=== PATIENT | female | born 1990 | race Caucasian/White ===

== ENCOUNTER 2019-03-22 12:29 | Outpatient (CLI) | payer OTHER, SELFPAY ==
--- NOTE | ~2019-03-22 | US_ITS ---
EXAMINATION: US pelvic complete w TV DATE: 03/22/2019 13:24 INDICATION: Pelvic and perineal pain TECHNIQUE: Multiple transabdominal and endovaginal sonographic images of the pelvis were obtained. COMPARISON: None. FINDINGS: The uterus measures 8.7 x 4.3 x 5.7 cm. The endometrial complex measures 9 mm in thickness. There ar e at least 5 anechoic nabothian cysts at the cervix the largest measuring up to 1.5 cm in maximal saman meter. The right ovary measures 3.1 x 1.6 x 3.1 cm. The left ovary measures 3.5 x 2.2 x 3.3 cm. Vascu lar flow is identified with normal arterial and venous waveforms at both ovaries on color Doppler. Mu ltiple bilateral subcentimeter ovarian follicles. There is no free fluid in the pelvis. IMPRESSION: 1. Normal pelvic ultrasound with small bilateral ovarian follicles and several nabothian cysts at the cervix. Reviewed, dictated and finalized at location A. ISION INSTRUMENT MAKER
== END 2019-03-22 12:30 | disposition home or self-care (01) ==
PROVIDERS: PCP Student in an Organized Health Care Education/Training Program; Visit Provider Student in an Organized Health Care Education/Training Program
DX: R10.2 Pelvic and perineal pain (principal)
CPT/HCPCS: 76830; 76856

== ENCOUNTER 2019-03-27 12:31 | Outpatient (CLI) | payer OTHER, SELFPAY ==
[2019-03-27 13:19] LABS: Cholesterol 128 mg/dL (0-200); HDL Direct 33 mg/dL (40-60); LDL Cholesterol Calculated 79 mg/dL (<130); Thyroid Stimulating Hormone 2.42 uIU/mL (0.36-3.74); Triglycerides 82 mg/dL (0-150)
[2019-03-27 13:29] LABS: Beta HCG Quantitative < 1.00 mIU/mL (0-6)
[2019-03-27 13:32] LABS: Glucose Fasting 136 mg/dL (70-99)
[2019-03-27 14:06] LABS: Glucose 1 Hour 211 mg/dL (<180)
[2019-03-27 16:01] LABS: Glucose 2 Hour 191 mg/dL (<155)
[2019-03-30 06:10] LABS: Insulin Level Total 45.2 uIU/mL (2.0-19.6)
[2019-03-30 12:54] LABS: FSH 5.4 mIU/mL (***); LH 6.5 mIU/mL (***); Prolactin 9.8 ng/mL (***)
[2019-03-31 15:17] LABS: Testosterone Free 7.5 pg/mL (0.1-6.4); Testosterone Total 37 ng/dL (2-45)
== END 2019-03-27 12:32 | disposition home or self-care (01) ==
LOC: CHSLAB 12:32
PROVIDERS: PCP Student in an Organized Health Care Education/Training Program; Visit Provider Student in an Organized Health Care Education/Training Program
DX: N92.6 Irregular menstruation, unspecified (principal)
CPT/HCPCS: 36415; 80061; 82951; 83001; 83002; 83498; 83525; 84146; 84402; 84403; 84443; 84702

== ENCOUNTER 2019-04-12 09:33 | Outpatient (CLI) | payer OTHER, SELFPAY ==
[2019-04-12 09:55] LABS: Pregnancy On Board Control Positive; Urine Pregnancy Test Negative
[2019-04-12 09:56] LABS: Specific Gravity Ur 1.025 (1.010-1.035)
[2019-04-12 10:17] LABS: Hemoglobin A1C 6.5 % (<5.7)
[2019-04-15 07:29] LABS: Prolactin 15.8 ng/mL (***)
== END 2019-04-12 09:34 | disposition home or self-care (01) ==
LOC: CHSLAB 09:37
PROVIDERS: PCP Student in an Organized Health Care Education/Training Program; Visit Provider Student in an Organized Health Care Education/Training Program
DX: N92.0 Excessive and frequent menstruation with regular cycle (principal); R87.810 Cervical high risk human papillomavirus (HPV) DNA test positive
CPT/HCPCS: 36415; 81025; 83036; 84146

== ENCOUNTER 2019-06-27 16:17 | Emergency (ER) | payer OTHER, SELFPAY ==
--- NOTE | 2019-06-27 16:58 | ED.URI ---
HPI - URI/Sore Throat General Chief Complaint: Upper Respiratory Infection Stated Complaint: trouble breathing,cough Source: patient Mode of arrival: ambulatory Limitations: no limitations History of Present Illness HPI Narrative: this is 29-year-old female presents with increased shortness of breath x3 days with a mild nonproductive cough no fevers no sick contacts no travel history, patient is currently afebrile has a history of asthma and has been well controlled with albuterol as needed. Currently there is no diarrhea constipation no nausea vomiting no abdominal pain no chest pain. MD elicited complaint: cough Onset (ago): day(s) Consistency: constant Severity: mild Description of mucous: clear Able to tolerate fluids by mouth: Yes Exacerbating factors: nothing Relieving factors: nothing Associated symptoms: cough Related Data Home Medications Medication Instructions Recorded Confirmed albuterol sulfate [ProAir HFA] 2 puff INHALATION QID PRN 01/09/19 01/09/19 Allergies Allergy/AdvReac Type Severity Reaction Status Date / Time Bleach (Sodium Hypochlorite) Allergy Unknown Difficulty Verified 04/16/19 09:37 Breathing morphine AdvReac Unknown PANIC Verified 04/16/19 09:37 ATTACK Opioids - Morphine Analogues AdvReac PANIC Verified 04/16/19 09:37 ATTACK Review of Systems Review of Systems: All systems reviewed & are unremarkable except as noted in HPI and below PMFSH Past Medical History Medical History Asthma Cervical high risk HPV (human papillomavirus) test positive CHASTITY II (cervical intraepithelial neoplasia 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 Morbid obesity with BMI of 40.0-44.9, adult Preoperative exam for gynecologic surgery Surgical History Surgical History H/O section H/O LEEP History of appendectomy Family History Family History Mother Diabetes mellitus Sibling Hypertension Grandparent Cerebrovascular accident Father Family history of throat cancer Social History Social History Smoking status: Never smoker Alcohol intake: never Exam Const: General: no acute distress and alert Orientation/consciousness: patient oriented x3 HENMT: Head: normal to inspection Eyes: Conjunctivae: conjunctivae normal Pupils: Equal, round and reactive pupils present Neck: Neck: normal visual inspection Chest: Chest palpation & inspection: normal inspection of the chest Resp: Effort & Inspection: normal respiratory effort Auscultation: wheezes Cardio: Rate: regular rate Rhythm: regular rhythm GI: GI Palp: Yes Soft to palpation : General: Yes no CVA tenderness Back/Spine/Pelvis: Back: no CVA tenderness Skin: General skin exam: normal color Rashes: no rashes Neuro: General: patient oriented x3 Extrem: General: normal to inspection Psych: Appearance: grossly normal and well kempt Mental Status: mental status grossly normal Thought content: Yes Normal thought content present Critical Care Time Critical Care Time Critical Care Time: No Discharge Plan Discharge Clinical Impression: URI (upper respiratory infection) Qualifiers: URI type: unspecified URI Qualified Code(s): J06.9 - Acute upper respiratory infection, unspecified Patient Disposition: Home, Self-Care Condition: Stable Instructions: Antibiotic Form, Upper Respiratory Infection (ED) Additional Instructions: Take medicine as prescribed and follow-up with primary care physician if symptoms persist or worsen. Prescriptions: New methylprednisolone [Medrol (Harsha)] 4 mg tablets,dose pack See Rx Instructions .ROUTE .COMPLEX Qty: 21 RF: 0 azithromycin [Zithromax Z-Harsha] 250 mg tablet See Rx Instructions .ROUTE .COMP
[2019-06-27 17:04] VITALS: BP 144/67; PULSE 102; RESP 18; TEMP 36.9; O2SAT 97
[2019-06-27] MEDS: IPRATROPIUM 0.5 MG/ALBUTEROL SULFATE 2.5 MG AMPUL.NEB 3 ML INHALATION (17:06)
[2019-06-27 17:08] VITALS: PULSE 82; RESP 16
[2019-06-27 17:12] VITALS: PULSE 100; RESP 16
[2019-06-27] MEDS: cefTRIAXone 1 GM VIAL IM (17:20)
[2019-06-27] MEDS: methylPREDNISolone ACETATE 40 MG/ML VIAL 80 MG IM (17:21)
[2019-06-27 17:43] VITALS: BP 114/70; RESP 18; O2SAT 98
== END 2019-06-27 17:43 | disposition home or self-care (01) ==
PROVIDERS: Emergency Provider Emergency Medicine; PCP Internal Medicine
DX: J06.9 Acute upper respiratory infection, unspecified (principal)
CPT/HCPCS: 94640; 96372; 99283; 99284; J0696; J1030

== ENCOUNTER 2019-09-08 11:27 | Emergency (ER) | payer OTHER, SELFPAY ==
--- NOTE | ~2019-09-08 | XR_ITS ---
XR chest 2V DATE: 09/08/2019 12:52 INDICATION: Chest pain TECHNIQUE: PA and lateral views COMPARISON: 09/23/2018 portable AP chest FINDINGS: Normal heart size. No hilar or mediastinal enlargement. No pulmonary infiltrate or consolid ation, pleural effusion or pulmonary vascular congestion or pneumothorax. IMPRESSION: No active cardiopulmonary disease Reviewed, dictated and finalized at location A.
--- NOTE | 2019-09-08 11:29 | ECG_ITS ---
Measurements Intervals [place] Rate: 75 P: 33 NE: 161 QRS: 42 QRSD: 88 T: 17 QT: 377 QTc: 423 Interpretive Statements SINUS RHYTHM WITH SINUS ARRHYTHMIA BASELINE ARTIFACT- I, II, III NORMAL ECG Electronically Signed On 09-08-2019 14:53:44 CDT by Tarun Persaud D.O.
[2019-09-08 11:37] VITALS: BP 123/69; PULSE 75; RESP 20; TEMP 36.9; O2SAT 98
--- NOTE | 2019-09-08 11:54 | ED.CHESTPAIN ---
HPI - Chest Pain General Chief Complaint: Chest Pain Stated Complaint: sharp pains in chest Time Seen by Provider: 09/08/19 11:45 Source: patient Mode of arrival: ambulatory Limitations: no limitations History of Present Illness HPI narrative: 29-year-old man comes in today complaining of sharp intermittent chest pains that last less than 1 minutes. They have been occurring for days. She states that she feels mild nausea but no shortness of breath, lightheadedness, vomiting, or diaphoresis. She states she has never had these symptoms before. She cannot associate them with any particular activity such as exertion, eating, or position. She states that she has been taking prednisone recently for an asthma exacerbation but finished her taper approximately 3 days ago. She states that she has had no episodes of shortness of breath or wheezing for which she has used her inhaler in the last 3 days. MD complaint: chest pain Pertinent past history: asthma Onset (ago): week(s) Timing of current episode: episodic Prior episodes: No Onset: during rest Pain location: substernal Pain radiation: none Severity: moderate Quality: sharp Relieving factors: nothing Exacerbating factors: nothing Associated symptoms: nausea Treatment prior to arrival: none Risk Factors Coronary artery disease risk factors: none Thoracic aortic dissection risk factors: none Related Data On Oral Contraceptives: No Home Medications Medication Instructions Recorded Confirmed albuterol sulfate [ProAir HFA] 2 puff INHALATION QID PRN 01/09/19 09/08/19 Allergies Allergy/AdvReac Type Severity Reaction Status Date / Time Bleach (Sodium Hypochlorite) Allergy Unknown Difficulty Verified 04/16/19 09:37 Breathing morphine AdvReac Unknown PANIC Verified 04/16/19 09:37 ATTACK Opioids - Morphine Analogues AdvReac PANIC Verified 04/16/19 09:37 ATTACK Review of Systems Constitutional: Constitutional: Denies chills and Denies fever(s) Eyes: Eyes: Denies change in vision and Denies photophobia ENT: Denies dysphagia, Denies nasal congestion and Denies sore throat Cardiovascular: Cardiovascular: Reports chest pain and Denies radiating jaw, neck or arm pain Respiratory: Respiratory: Denies cough, Denies dyspnea and Denies wheezing Gastrointestinal: Gastrointestinal: Reports as per HPI, Denies abdominal pain, Denies diarrhea, Reports nausea and Denies vomiting Genitourinary: Genitourinary: Denies nocturia and Denies dysuria Musculoskeletal: Musculoskeletal: Denies arthralgias, Denies joint swelling and Denies muscle cramps Integumentary/Breasts: Skin/Breast: Denies pruritus, Denies erythema and Denies rash Neurologic: Denies vertigo, Denies dizziness and Denies syncope Hematologic/Lymphatic: Hematologic/Lymphatic: Denies easy bleeding and Denies easy bruising Allergic/Immunologic: Allergic/Immunologic: Denies lip swelling and Denies wheezing PMFSH Past Medical History Medical History Asthma Cervical high risk HPV (human papillomavirus) test positive CHASTITY II (cervical intraepithelial neoplasia 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 Morbid obesity with BMI of 40.0-44.9, adult Preoperative exam for gynecologic surgery Surgical History Surgical History H/O section H/O LEEP History of appendectomy Family History Family History Mother Diabetes mellitus Sibling Hypertension Grandparent Cerebrovascular accident Father Family history of throat cancer Social History Social History Smoking status: Never smoker Alcohol intake: never Exam Const: General: alert Nutritional Appearance: obese Orientation/consciousness: patient oriented x3 Limitations: no limitations
[2019-09-08] MEDS: MAG HYDROX/ALUMINUM HYD/SIMETH 30 ML, PHENobarb/HYOSCY/ATROPINE/SCOP 32.4 MG, LIDOCAINE... PO (12:03)
[2019-09-08 12:27] LABS: Basophils Absolute Auto 0.03 K/mm3 (0.00-0.10); Basophils Percent Auto 0.4 % (0.0-1.0); Eosinophils Absolute Auto 0.11 K/mm3 (0.02-0.50); Eosinophils Percent Auto 1.4 % (1.0-6.0); Hematocrit 38.4 % (35.0-49.0); Hemoglobin 12.9 g/dL (12.0-15.0); Immature Granulocyte Absolute 0.04 K/mm3 (0.00-0.00); Immature Granulocyte Percent A 0.5 % (0.0-0.0); Lymphocytes Absolute Auto 1.62 K/mm3 (1.10-4.50); Lymphocytes Percent Auto 20.7 % (18.0-42.0); Mean Corpuscular HGB Conc 33.6 g/dL (32.0-36.0); Mean Corpuscular Hemoglobin 30.4 pg (27.0-31.0); Mean Corpuscular Volume 90.6 fL (78.0-102.0); Mean Platelet Volume 13.1 fl (9.2-11.8); Monocytes Percent Auto 8.9 % (2.0-11.0); Neutrophils Absolute Auto 5.3 K/mm3 (1.7-7.2); Neutrophils Percent Auto 68.1 % (50.0-70.0); Platelet Count Result 178 K/mm3 (150-420); Red Blood Count 4.24 M/mm3 (4.20-5.40); Red Cell Distribution Width 13.2 % (11.6-14.4); White Blood Count 7.8 K/mm3 (4.8-10.8)
[2019-09-08 12:39] LABS: Partial Thromboplastin Time 29.3 SEC (22.3-31.6); Prothrombin Time 10.3 Seconds (9.64-11.0)
[2019-09-08 12:40] LABS: BNP 12 pg/mL (0-100)
[2019-09-08 12:41] LABS: D Dimer 0.31 mg/L (0.19-0.50)
[2019-09-08 12:44] LABS: Alanine Aminotransferase 28 U/L (14-59); Albumin Level 3.6 g/dL (3.4-5.0); Alkaline Phosphatase 95 U/L (46-116); Anion Gap 10.7 mmol/L (7-16); Aspartate Amino Transferase 24 U/L (15-37); Bilirubin,Total 0.3 mg/dL (0.00-1.00); Blood Urea Nitrogen 7 mg/dL (7-18); Calcium 8.5 mg/dL (8.5-10.1); Carbon Dioxide 28 mmol/L (21-32); Chloride 105 mmol/L (98-108); Estimated CRCL calculation 94 ml/min; Estimated Glomerular Filt Rate > 60; Glucose 103 mg/dL (70-99); Lipase 83 U/L (73-393); Osmolality Calculated 288 mOsm/kg (285-295); Potassium 3.7 mmol/L (3.5-5.1); Sodium 140 mmol/L (136-145); Total Protein 7.6 g/dL (6.4-8.2)
[2019-09-08 12:46] LABS: Add Urine Microscopic? YES; Appearance Urine Clear (Clear); Bilirubin Urine Negative (Negative); Blood Urine 3+ (Negative); Color Urine Yellow (Yellow); Glucose Urine UA Negative (Negative); Ketones Urine Negative (Negative); Leukocyte Esterase Ur Negative LEU/UL (Negative); Nitrate Urine Negative (Negative); Protein Urine Trace (Negative); Specific Grav Ur >= 1.030 (1.010-1.020); Urobilinogen Urine 0.2 mg/dL (0.2-1.0)
[2019-09-08 12:46] LABS: Troponin I < 0.02 ng/mL (0.00-0.056)
[2019-09-08 12:48] LABS: Urine Pregnancy Test Negative
[2019-09-08 12:49] LABS: Pregnancy On Board Control Positive; Specific Gravity Ur > 1.030 (1.010-1.035)
[2019-09-08 12:52] LABS: Bacteria Urine 2+ /hpf; Squamous Epithelial Cell Urine Few /hpf (Few); WBC Urine None seen /hpf (0-3)
[2019-09-08 12:53] LABS: Mucus Urine Rare /lpf
[2019-09-08 13:16] VITALS: BP 123/71; PULSE 71; RESP 15; O2SAT 99
[2019-09-08] MEDS: PANTOPRAZOLE 40 MG TABLET PO (13:16)
== END 2019-09-08 13:16 | disposition home or self-care (01) ==
PROVIDERS: Emergency Provider Emergency Medicine; PCP Internal Medicine
DX: R07.9 Chest pain, unspecified (principal)
CPT/HCPCS: 36415; 71046; 80053; 81001; 81025; 83690; 83880; 84484; 85025; 85380; 85610; 85730; 93005; 99284; A9270

== ENCOUNTER 2019-11-28 14:01 | Emergency (ER) | payer OTHER, SELFPAY ==
--- NOTE | ~2019-11-28 | XR_ITS ---
EXAMINATION: XR chest 1V portable INDICATION: Shortness of breath TECHNIQUE: Portable AP chest at 1500 hours COMPARISON: 09/08/2019 FINDINGS: The lungs are free of acute opacities. There is no pleural effusion or pneumothorax. The ca rdiomediastinal silhouette is normal. IMPRESSION: 1. No acute cardiopulmonary abnormality. Reviewed, dictated and finalized at location A.
[2019-11-28 14:15] VITALS: BP 122/75; PULSE 93; RESP 18; TEMP 37.1; O2SAT 100
--- NOTE | 2019-11-28 14:26 | ED.SOB ---
HPI - SOB/Dyspnea General Chief Complaint: Upper Respiratory Infection Stated Complaint: headache chest pain cant breath asthmatic Time Seen by Provider: 11/28/19 14:26 Source: patient Mode of arrival: ambulatory Limitations: no limitations History of Present Illness HPI Narrative: 29-year-old woman with a history of asthma comes in today complaining of shortness for breath, feeling fatigued and ill, nausea, and sore throat. Patient states that her had similar symptoms for approximately a week. His symptoms have now resolved. She denies any fever. She denies vomiting, diarrhea, rash, chest pain or pressure, abdominal pain, and trauma. She states she is out of her albuterol MDI. she denies any known COVID-19 exposures. MD elicited complaint: shortness of breath, cough and asthma attack Pertinent past history: asthma Onset (ago): day(s) (2) Timing: constant and progressively worsening Severity: moderate Exacerbating factors: exertion Relieving factors: rest Known history of: asthma Associated symptoms: cough, wheezing ( Intermittently) and nausea/vomiting Related Data Home oxygen amount: none Home Medications Medication Instructions Recorded Confirmed albuterol sulfate [ProAir HFA] 2 puff INHALATION QID PRN 01/09/19 11/28/19 budesonide-formoterol [Symbicort] 2 puff INHALATION BID 11/28/19 11/28/19 montelukast 10 mg PO DAILY 11/28/19 11/28/19 Allergies Allergy/AdvReac Type Severity Reaction Status Date / Time Bleach (Sodium Hypochlorite) Allergy Unknown Difficulty Verified 04/16/19 09:37 Breathing morphine AdvReac Unknown PANIC Verified 04/16/19 09:37 ATTACK Opioids - Morphine Analogues AdvReac PANIC Verified 04/16/19 09:37 ATTACK Review of Systems Constitutional: Constitutional: Denies chills, Reports fatigue, Denies fever(s) and Reports weakness Eyes: Eyes: Denies change in vision and Denies photophobia ENT: Denies dysphagia, Denies nasal congestion and Reports sore throat Cardiovascular: Cardiovascular: Denies chest pain and Denies radiating jaw, neck or arm pain Respiratory: Respiratory: Reports cough, Reports dyspnea and Reports wheezing Gastrointestinal: Gastrointestinal: Denies abdominal pain, Denies diarrhea, Reports nausea and Denies vomiting Genitourinary: Genitourinary: Denies nocturia and Denies dysuria Musculoskeletal: Musculoskeletal: Denies arthralgias and Denies joint swelling Integumentary/Breasts: Skin/Breast: Denies pruritus, Denies erythema and Denies rash Neurologic: Denies vertigo, Denies dizziness, Denies syncope and Denies numbness Hematologic/Lymphatic: Hematologic/Lymphatic: Denies easy bleeding and Denies easy bruising Allergic/Immunologic: Allergic/Immunologic: Denies lip swelling and Denies tongue swelling PMFSH Past Medical History Medical History (Updated 11/28/19 @ 15:24 by Hardeep Robles MD) Asthma Cervical high risk HPV (human papillomavirus) test positive CHASTITY II (cervical intraepithelial neoplasia 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 Morbid obesity with BMI of 40.0-44.9, adult Preoperative exam for gynecologic surgery Surgical History Surgical History H/O section H/O LEEP History of appendectomy Family History Family History Mother Diabetes mellitus Sibling Hypertension Grandparent Cerebrovascular accident Father Family history of throat cancer Social History Social History Smoking status: Never smoker Alcohol intake: never Exam Const: General: alert Nutritional Appearance: obese Orientation/consciousness: patient oriented x3 Limitations: no limitations Other: mild acute distress HENMT: Head: normal to inspection Ears: external ears normal, TM's normal bilaterally and EAC's normal General nose exam
[2019-11-28 15:08] LABS: Influenza Control Valid (Valid)
[2019-11-28] MEDS: IPRATROPIUM 0.5 MG/ALBUTEROL SULFATE 2.5 MG AMPUL.NEB 3 ML INHALATION (15:24)
[2019-11-28 15:25] VITALS: PULSE 84; RESP 16
[2019-11-28 15:44] VITALS: PULSE 96; RESP 16
[2019-11-28 15:49] VITALS: BP 124/86; PULSE 93; RESP 16; O2SAT 99
[2019-11-29 14:11] LABS: SARS-CoV-2 RNA PCR Negative
== END 2019-11-28 15:47 | disposition home or self-care (01) ==
PROVIDERS: Emergency Provider Emergency Medicine; PCP Internal Medicine
DX: B34.9 Viral infection, unspecified (principal); J45.30 Mild persistent asthma, uncomplicated; Z20.828 Contact with and (suspected) exposure to other viral communicable diseases
CPT/HCPCS: 71045; 87635; 87804; 94640; 99282; 99283; C9803; U0003

== ENCOUNTER 2020-07-13 05:05 | Emergency (ER) | payer OTHER, SELFPAY ==
[2020-07-13 05:05] VITALS: BP 116/66; PULSE 70; RESP 20; TEMP 36.6; O2SAT 97
[2020-07-13 05:20] VITALS: PULSE 70; RESP 20; O2SAT 97
[2020-07-13] MEDS: methylPREDNISolone ACETATE 40 MG/ML VIAL 80 MG IM (05:20)
[2020-07-13] MEDS: IPRATROPIUM 0.5 MG/ALBUTEROL SULFATE 2.5 MG AMPUL.NEB 3 ML INHALATION (05:20)
--- NOTE | 2020-07-13 05:21 | ED.ASTHMA ---
HPI - Asthma General Chief Complaint: Asthma Stated Complaint: SHORTNESS OF BREATHE Source: patient Mode of arrival: ambulatory Limitations: no limitations History of Present Illness HPI Narrative: this is a year old female who presents with a history of asthma with some stating that her medication is not working as well as it used to, she has some wheezes with auscultation but otherwise able to sentences not short of breath no cough no congestion no fever chills no abdominal pain no chest tightness. Patient currently has her medication and has been using them but feels they are not as affective. complaint: wheezing Onset (ago): day(s) Severity: mild Context: none known Associated symptoms: none Asthma History: adult onset Treatments Prior to Arrival: inhaled bronchodilator and inhaled steroid Related Data Current Asthma Therapy: inhaled bronchodilator and inhaled steroid Home Medications Medication Instructions Recorded Confirmed albuterol sulfate [ProAir HFA] 2 puff INHALATION QID PRN 01/09/19 11/28/19 budesonide-formoterol [Symbicort] 2 puff INHALATION BID 11/28/19 11/28/19 montelukast 10 mg PO DAILY 11/28/19 11/28/19 Allergies Allergy/AdvReac Type Severity Reaction Status Date / Time Bleach (Sodium Hypochlorite) Allergy Unknown Difficulty Verified 04/16/19 09:37 Breathing morphine AdvReac Unknown PANIC Verified 04/16/19 09:37 ATTACK Opioids - Morphine Analogues AdvReac PANIC Verified 04/16/19 09:37 ATTACK Review of Systems Review of Systems: All systems reviewed & are unremarkable except as noted in HPI and below PMFSH Past Medical History Medical History (Updated 07/13/20 @ 05:25 by Shahid Ramirez MD) Asthma Cervical high risk HPV (human papillomavirus) test positive CHASTITY II (cervical intraepithelial neoplasia 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 Morbid obesity with BMI of 40.0-44.9, adult Preoperative exam for gynecologic surgery Surgical History Surgical History H/O section H/O LEEP History of appendectomy Family History Family History Mother Diabetes mellitus Sibling Hypertension Grandparent Cerebrovascular accident Father Family history of throat cancer Social History Social History Smoking status: Never smoker Alcohol intake: never Exam Const: General: no acute distress Orientation/consciousness: patient oriented x3 HENMT: Head: normal to inspection and contusion Eyes: Conjunctivae: conjunctivae normal Pupils: Equal, round and reactive pupils present EOM: EOMs intact bilaterally Neck: Neck: normal visual inspection, no lymphadenopathy and no meningeal signs Chest: Chest palpation & inspection: normal inspection of the chest Resp: Effort & Inspection: normal respiratory effort Auscultation: wheezes Cardio: Rate: regular rate Rhythm: regular rhythm GI: GI Palp: Yes Tenderness to palpation present (GI) : General: Yes no CVA tenderness Skin: General skin exam: normal color Lesions: no lesions Neuro: General: patient oriented x3, moves all extremities and no meningeal signs Extrem: General: normal to inspection and no pedal edema Psych: Appearance: grossly normal and well kempt Mental Status: mental status grossly normal Affect: normal affect Course Course Emergency Course: Reassessment of patient lung sounds have improved after DuoNebs and IM steroids. Critical Care Time Critical Care Time Critical Care Time: No Discharge Plan Discharge Clinical Impression: Asthma with acute exacerbation Qualifiers: Asthma severity: mild Asthma persistence: intermittent Qualified Code(s): J45.21 - Mild intermittent asthma with (acute) exacerbation Patient Disposition: Home, Self-Care Condition: Stable Instructions: Antib
[2020-07-13 05:30] VITALS: PULSE 78; RESP 20; O2SAT 97
[2020-07-13 05:45] VITALS: BP 120/66; PULSE 70; RESP 20; TEMP 36.6; O2SAT 98
== END 2020-07-13 05:46 | disposition home or self-care (01) ==
PROVIDERS: Emergency Provider Emergency Medicine; PCP Internal Medicine
DX: J45.21 Mild intermittent asthma with (acute) exacerbation (principal); E66.9 Obesity, unspecified
CPT/HCPCS: 94640; 96372; 99283; J1030

== ENCOUNTER 2021-02-17 19:54 | Emergency (ER) | payer OTHER, SELFPAY ==
--- NOTE | ~2021-02-17 | CT_ITS ---
EXAMINATION: CT brain wo con EXAM DATE: 02/17/2021 21:14 INDICATION: Frontal CARTAGENA today . Dizziness. TECHNIQUE: Spiral CT of the head was performed without contrast. Axial, coronal and sagittal images were reviewed. The dose-length product (DLP) for this examination was 605.33 mGy-cm. The exposure w as tailored according to patient size, and iterative reconstruction (ASIR) was used as additional dos e reduction technique. There is no prior study for comparison. FINDINGS: Low-lying cerebellar tonsils, probably meeting criteria for Chiari I malformation. MR cervi mariano spine without contrast should be obtained. There is no acute intraparenchymal hemorrhage. No bea dence of intraparenchymal brain mass lesion. No evidence of acute infarction. There is no mass effe ct or midline shift. The ventricles are normal in size. There are no extra-axial collections. Ther e are no acute calvarial fractures. Disconjugate gaze. Soft tissue is unremarkable. The visualized s inuses and mastoid air cells are well aerated. IMPRESSION: 1. No acute intracranial findings. 2. Probable Chiari I malformation. Consider follow-up nonemergent cervical spine MRI without contras t. Reviewed, dictated and finalized at location A. PICKER MACHINE OPERATOR IMPRESSION: 1. No acute intracranial findings. 2. Probable Chiari I malformation. Consider follow-up nonemergent cervical spi ne MRI without contrast.
--- NOTE | ~2021-02-17 | XR_ITS ---
EXAMINATION: XR chest 1V portable EXAM DATE: 02/17/2021 21:14 INDICATION: Dizziness. TECHNIQUE: Portable AP frontal chest x-ray was obtained. Comparison is made to prior examination from 11/28/2019. FINDINGS: The lungs are clear. There are no pleural effusions. The cardiomediastinal silhouette is within normal limits. There is no pneumothorax suspected. The bones and soft tissues are unremarkab le. IMPRESSION: No acute cardiopulmonary findings. Reviewed, dictated and finalized at location A. RETE TESTER
[2021-02-17 20:10] VITALS: BP 124/66; PULSE 106; RESP 18; TEMP 36.9; O2SAT 98
--- NOTE | 2021-02-17 20:22 | ED.DIZZY ---
HPI - Dizziness General Chief Complaint: Dizziness Stated Complaint: dizzy, throwing up Time Seen by Provider: 02/17/21 19:57 Source: patient and RN notes reviewed Mode of arrival: ambulatory Limitations: no limitations History of Present Illness MD elicited complaint: dizziness and lightheadedness Pertinent past history: BPPV Onset (ago): day(s) (1) Timing: sudden onset Severity: moderate Description: lightheadedness History of similar symptoms: Yes Exacerbating factors: nothing Relieving factors: nothing Associated symptoms: nausea and malaise Related Data Home Medications Medication Instructions Recorded Confirmed albuterol sulfate [ProAir HFA] 2 puff INHALATION QID PRN 01/09/19 02/17/21 Allergies Allergy/AdvReac Type Severity Reaction Status Date / Time Bleach (Sodium Hypochlorite) Allergy Unknown Difficulty Verified 02/17/21 20:18 Breathing morphine AdvReac Unknown PANIC Verified 02/17/21 20:18 ATTACK Opioids - Morphine Analogues AdvReac PANIC Verified 02/17/21 20:18 ATTACK Review of Systems Review of Systems: All systems reviewed & are unremarkable except as noted in HPI and below PMFSH Past Medical History Medical History Asthma Cervical high risk HPV (human papillomavirus) test positive CHASTITY II (cervical intraepithelial neoplasia 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 Morbid obesity with BMI of 40.0-44.9, adult Preoperative exam for gynecologic surgery Surgical History Surgical History H/O section H/O LEEP History of appendectomy Family History Family History Mother Diabetes mellitus Sibling Hypertension Grandparent Cerebrovascular accident Father Family history of throat cancer Social History Social History Smoking status: Never smoker Alcohol intake: never Exam Const: General: no acute distress and alert Nutritional Appearance: obese Orientation/consciousness: patient oriented x3 Limitations: no limitations HENMT: Head: normal to inspection Ears: TM's normal bilaterally General nose exam: Normal external nose present and Normal nares present Mouth: Yes lip normal and Yes moist mucous membranes Teeth and gingiva: dentition normal Eyes: Conjunctivae: conjunctivae normal Pupils: Equal, round and reactive pupils present EOM: EOMs intact bilaterally Neck: Neck: normal visual inspection Chest: Chest palpation & inspection: normal inspection of the chest Resp: Effort & Inspection: normal respiratory effort Auscultation: clear to auscultation bilaterally Cardio: Rate: tachycardic Rhythm: regular rhythm GI: Auscultation: normal bowel sounds : General: Yes bladder normal to palpation and Yes no CVA tenderness Back/Spine/Pelvis: Back: no CVA tenderness Skin: General skin exam: normal color Rashes: no rashes Neuro: General: patient oriented x3, moves all extremities, no meningeal signs, no focal motor deficits and CN's II-XI intact bilaterally Extrem: General: normal to inspection and no pedal edema Psych: Appearance: grossly normal Mental Status: mental status grossly normal Affect: normal affect Thought content: Yes Normal thought content present Course Course Emergency Course: Pt was less dizzy in the ED with no acute GI loss. Reevaluation(s) Reevaluation #1: VSS. pt was ambulatory in the ED. Date: 02/17/21 Time: 20:56 Vital Signs Vital signs: Vital Signs Temperature 36.9 C 02/17/21 20:10 Pulse Rate 106 H 02/17/21 20:10 Respiratory Rate 18 02/17/21 20:10 Blood Pressure 124/66 02/17/21 20:10 Pulse Oximetry 98 02/17/21 20:10 Temperature 36.7 C 02/17/21 23:00 Pulse Rate 103 H 02/17/21 23:00 Respiratory Rate 20 02/17/21 23:00 Blood Pressure 108
--- NOTE | 2021-02-17 20:33 | ECG_ITS ---
Measurements Intervals [place] Rate: 103 P: 42 NC: 172 QRS: 43 QRSD: 90 T: 29 QT: 327 QTc: 428 Interpretive Statements SINUS TACHYCARDIA BORDERLINE ECG Electronically Signed On 02-18-2021 6:29:36 INSPECTOR FILTERS by Tarun Persaud D.O.
[2021-02-17 20:55] LABS: Basophils Absolute Auto 0.01 K/mm3 (0.00-0.10); Basophils Percent Auto 0.2 % (0.0-1.0); Eosinophils Absolute Auto 0.02 K/mm3 (0.02-0.50); Eosinophils Percent Auto 0.3 % (1.0-6.0); Hemoglobin 12.9 g/dL (12.0-15.0); Immature Granulocyte Absolute 0.02 K/mm3 (0.00-0.00); Immature Granulocyte Percent A 0.3 % (0.0-0.0); Lymphocytes Absolute Auto 0.24 K/mm3 (1.10-4.50); Lymphocytes Percent Auto 3.9 % (18.0-42.0); Mean Corpuscular HGB Conc 32.3 g/dL (32.0-36.0); Mean Corpuscular Hemoglobin 27.7 pg (27.0-31.0); Mean Corpuscular Volume 85.8 fL (78.0-102.0); Mean Platelet Volume 12.8 fl (9.2-11.8); Monocytes Percent Auto 11.5 % (2.0-11.0); Neutrophils Absolute Auto 5.1 K/mm3 (1.7-7.2); Neutrophils Percent Auto 83.8 % (50.0-70.0); Platelet Count Result 183 K/mm3 (150-420); Red Blood Count 4.66 M/mm3 (4.20-5.40); Red Cell Distribution Width 13.8 % (11.6-14.4); White Blood Count 6.1 K/mm3 (4.8-10.8)
[2021-02-17 21:14] LABS: Alanine Aminotransferase 41 U/L (14-59); Albumin Level 3.7 g/dL (3.4-5.0); Alkaline Phosphatase 115 U/L (46-116); Anion Gap 12 mmol/L (8-16); Aspartate Amino Transferase 19 U/L (15-37); Bilirubin,Total 0.2 mg/dL (0.00-1.00); Blood Urea Nitrogen 8 mg/dL (7-18); Calcium 8.5 mg/dL (8.5-10.1); Carbon Dioxide 26 mmol/L (21-32); Chloride 100 mmol/L (98-108); Estimated CRCL calculation 94 ml/min; Estimated Glomerular Filt Rate > 60; Glucose 144 mg/dL (70-99); Osmolality Calculated 287 mOsm/kg (285-295); Sodium 138 mmol/L (136-145); Total Protein 8.3 g/dL (6.4-8.2); Troponin I 4.6 ng/L (0.00-60.4)
[2021-02-17 21:21] LABS: SARS-CoV-2 Ag Positive (Negative)
[2021-02-17] MEDS: KETOROLAC (*BKC) 60 MG/2 ML VIAL IM (21:22)
[2021-02-17] MEDS: PANTOPRAZOLE SODIUM IV 40 MG VIAL IV PUSH (21:48)
[2021-02-17] MEDS: SODIUM CHLORIDE 0.9% IV 1,000 ML 999 ML IV CONT (21:48)
[2021-02-17 21:49] LABS: Influenza Control Valid (Valid); SPREG INTERNAL CONTROL Positive; Serum Qual hCG Negative
[2021-02-17] MEDS: ONDANSETRON INJ 4 MG/2 ML VIAL IV PUSH (21:50)
[2021-02-17 23:00] VITALS: BP 108/62; PULSE 103; RESP 20; TEMP 36.7; O2SAT 97
== END 2021-02-17 23:02 | disposition home or self-care (01) ==
PROVIDERS: Emergency Provider Emergency Medicine; PCP Internal Medicine
DX: U07.1 COVID-19 (principal); B34.9 Viral infection, unspecified
CPT/HCPCS: 36415; 70450; 71045; 80053; 84484; 84703; 85025; 87426; 87804; 93005; 96361; 96372; 96374; 96375; 99283; 99284; C9113; C9803; J1885; J2405; J7030

== ENCOUNTER 2021-07-31 21:14 | Emergency (ER) | payer OTHER, SELFPAY ==
[2021-07-31 21:30] VITALS: BP 132/78; PULSE 98; RESP 20; TEMP 36.6; O2SAT 99
--- NOTE | 2021-07-31 21:43 | ED.URI ---
HPI - URI/Sore Throat General Chief Complaint: Upper Respiratory Infection Stated Complaint: sore throat, sob Source: patient Mode of arrival: ambulatory Limitations: no limitations History of Present Illness HPI Narrative: this is a 31-year-old female with history of asthma currently on inhalers and has been a sore throat with sinus congestion and pressure with low-grade fevers with currently of no shortness of breath no audible wheezing no nausea vomiting no chest pain. MD elicited complaint: sore throat, nasal congestion and sinus pain Pertinent past history: asthma Onset (ago): day(s) Consistency: constant Severity: mild Related Data Home Medications Medication Instructions Recorded Confirmed albuterol sulfate 90 mcg/actuation 2 puff inhalation QID PRN 01/09/19 07/31/21 aerosol inhaler (ProAir HFA) Shortness Of Breath Allergies Allergy/AdvReac Type Severity Reaction Status Date / Time Bleach (Sodium Hypochlorite) Allergy Unknown Difficulty Verified 02/17/21 20:18 Breathing morphine AdvReac Unknown PANIC Verified 02/17/21 20:18 ATTACK Opioids - Morphine Analogues AdvReac PANIC Verified 02/17/21 20:18 ATTACK Review of Systems Review of Systems: All systems reviewed & are unremarkable except as noted in HPI and below PMFSH Past Medical History Medical History (Updated 07/31/21 @ 21:46 by Shahid Ramirez MD) Asthma Cervical high risk HPV (human papillomavirus) test positive CHASTITY II (cervical intraepithelial neoplasia 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 Morbid obesity with BMI of 40.0-44.9, adult Preoperative exam for gynecologic surgery Surgical History Surgical History H/O section H/O LEEP History of appendectomy Family History Family History Mother Diabetes mellitus Sibling Hypertension Grandparent Cerebrovascular accident Father Family history of throat cancer Social History Social History Smoking status: Never smoker Alcohol intake: never Exam Const: General: healthy appearing HENMT: Ears: external ears normal Mouth: Yes Normal oral and palatal mucosa present Other: Sinus congestion pressure frontal sinus with palpation Eyes: Conjunctivae: conjunctivae normal Pupils: Equal, round and reactive pupils present Neck: Neck: normal visual inspection, no lymphadenopathy and no meningeal signs Chest: Chest palpation & inspection: normal inspection of the chest Resp: Effort & Inspection: normal respiratory effort Auscultation: clear to auscultation bilaterally Cardio: Rate: regular rate Rhythm: regular rhythm GI: GI Palp: Yes Soft to palpation Auscultation: normal bowel sounds Back/Spine/Pelvis: Back: no CVA tenderness Skin: General skin exam: normal color Rashes: no rashes Wounds: no wounds Neuro: General: patient oriented x3, moves all extremities, no meningeal signs and no focal motor deficits Psych: Mental Status: mental status grossly normal Affect: normal affect Course Course Emergency Course: patient received IM Depo-Medrol and a g of IM ceftriaxone and strep was negative. Vital Signs Vital signs: Vital Signs Temperature 36.6 C 07/31/21 21:30 Pulse Rate 98 07/31/21 21:30 Respiratory Rate 20 07/31/21 21:30 Blood Pressure 132/78 07/31/21 21:30 Pulse Oximetry 99 07/31/21 21:30 Oxygen Delivery Room Air 07/31/21 21:30 Temperature 36.6 C 07/31/21 21:30 Pulse Rate 98 07/31/21 21:30 Respiratory Rate 20 07/31/21 21:30 Blood Pressure 132/78 07/31/21 21:30 Pulse Oximetry 99 07/31/21 21:30 Oxygen Delivery Room Air 07/31/21 21:30 Critical Care Time Critical Care Time Critical Care Time: No Discharge Plan Discharge Clinical Impression: Sinusitis Qualifiers: Sinusitis loc
[2021-07-31] MEDS: cefTRIAXone 1 GM, LIDOCAINE HCL 1% LOCAL INJ 2.1 ML IM (21:58)
[2021-07-31] MEDS: methylPREDNISolone ACETATE 40 MG/ML VIAL 80 MG IM (21:59)
[2021-07-31 22:18] VITALS: BP 133/74; PULSE 88; RESP 20; O2SAT 100
== END 2021-07-31 22:25 | disposition home or self-care (01) ==
PROVIDERS: Emergency Provider Emergency Medicine; PCP Internal Medicine
DX: J01.10 Acute frontal sinusitis, unspecified (principal)
CPT/HCPCS: 87880; 96372; 99284; J0696; J1030

== ENCOUNTER 2021-12-05 12:36 | Emergency (ER) | payer OTHER, SELFPAY ==
[2021-12-05 12:40] VITALS: BP 133/75; PULSE 92; RESP 20; TEMP 36.2; O2SAT 99
--- NOTE | 2021-12-05 13:05 | ED.GENADULT ---
HPI - General Adult General Chief complaint: Upper Respiratory Infection Stated complaint: labored breathing Time Seen by Provider: 12/05/21 12:56 Source: patient Mode of arrival: ambulatory Limitations: no limitations History of Present Illness HPI narrative: PATIENT IS A 31-YEAR-OLD OBESE WHITE FEMALE 3 PARA 1 AB1 15 WEEKS INTRAUTERINE BY ULTRASOUND DONE AT 13 AND HALF WEEKS. EDC: 05/30/2021. LAST MENSTRUAL PERIOD 08/23/2021. PATIENT IS AN ASTHMATIC AND SHE RAN OUT OF HER INHALER ALBUTEROL LAST NIGHT. COMPLAINS OF WHEEZING AND COUGHING FOR THE PAST 2 WEEKS. NONPRODUCTIVE COUGH NO CHEST OR ABDOMINAL PAIN OR BACK PAIN NO FEVER. SHE IS EATING DRINKING STOOLING AND VOIDING FINE WITHOUT RASH ITCHING OR OTHER PROBLEMS. Related Data Home Medications Medication Instructions Recorded Confirmed prenat.vits,mariano,[id number] 1 tablet PO DAILY 11/18/21 12/05/21 Allergies Allergy/AdvReac Type Severity Reaction Status Date / Time Bleach (Sodium Hypochlorite) Allergy Unknown Difficulty Verified 12/05/21 12:47 Breathing morphine AdvReac Unknown PANIC Verified 12/05/21 12:47 ATTACK Opioids - Morphine Analogues AdvReac PANIC Verified 12/05/21 12:47 ATTACK Review of Systems Review of Systems: All systems reviewed & are unremarkable except as noted in HPI and below Constitutional: Constitutional: Reports no additional constitutional complaints, Denies anorexia, Denies fatigue and Denies fever(s) Eyes: Eyes: Reports no additional eye complaints ENT: Reports system reviewed and no additional complaints, except as documented, Reports nasal congestion, Denies sinus pain and Denies sore throat Cardiovascular: Cardiovascular: Reports no additional cardiovascular complaints Respiratory: Respiratory: Reports no additional respiratory complaints, Denies chest congestion, Reports cough, Denies hemoptysis, Denies excessive phlegm production, Denies pain on inspiration, Denies pain with cough, Denies dyspnea, Denies dyspnea on exertion, Denies stridor and Reports wheezing Gastrointestinal: Gastrointestinal: Reports no additional gastrointestinal complaints and Reports nausea Genitourinary: Genitourinary: Reports no additional female genitourinary complaints Musculoskeletal: Musculoskeletal: Reports no additional musculoskeletal complaints Neurologic: Reports system reviewed and no additional complaints, except as documented PMFSH Past Medical History Medical History Asthma Cervical high risk HPV (human papillomavirus) test positive CHASTITY II (cervical intraepithelial neoplasia 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 Morbid obesity with BMI of 40.0-44.9, adult Preoperative exam for gynecologic surgery Surgical History Surgical History H/O section H/O LEEP History of appendectomy Family History Family History Mother Diabetes mellitus Sibling Hypertension Grandparent Cerebrovascular accident Father Family history of throat cancer Social History Social History Smoking status: Never smoker Alcohol intake: never Exam Narrative: MORBIDLY OBESE WHITE FEMALE APPEARS IN NO APPARENT DISTRESS. VITAL SIGNS ARE NORMAL. HEART TONES WERE HEARD TO BE 128 PER MY EXAM. HEAD IS ATRAUMATIC. EYES CONJUNCTIVA PINK SCLERA NONICTERIC OROPHARYNX IS CLEAR WITH MOIST MUCOUS MEMBRANES. LUNGS SHOW FAIR AIR EXCHANGE WITH SLIGHT WHEEZING. HEART IS REGULAR RATE AND RHYTHM WITHOUT MURMURS GALLOPS RUBS ABDOMEN MORBIDLY OBESE SOFT NONTENDER NO HEPATOSPLENOMEGALY OR MASSES EXTREMITIES NO CYANOSIS CLUBBING OR EDEMA NEUROLOGIC IS SHE IS ALERT AND ORIENTED MOTOR SENSORY GROSSLY INTACT. SKIN IS CLEAR AND DRY Const: General: cooperative Orien
[2021-12-05] MEDS: ALBUTEROL SULFATE NEB 2.5 MG/3 ML INH INHALATION (13:18)
[2021-12-05 13:19] VITALS: PULSE 90; RESP 12; O2SAT 97
[2021-12-05 13:24] VITALS: PULSE 88; RESP 16
[2021-12-05 13:49] VITALS: BP 116/67; PULSE 98; RESP 18; O2SAT 100
== END 2021-12-05 13:50 | disposition home or self-care (01) ==
PROVIDERS: Emergency Provider Emergency Medicine; PCP Internal Medicine
DX: J45.901 Unspecified asthma with (acute) exacerbation (principal); Z33.1 Pregnant state, incidental
CPT/HCPCS: 94640; 99283

== ENCOUNTER 2021-12-13 13:10 | Outpatient (CLI) | payer OTHER, SELFPAY ==
[2021-12-13 13:31] LABS: Basophils Absolute Auto 0.02 K/mm3 (0.00-0.10); Basophils Percent Auto 0.2 % (0.0-1.0); Eosinophils Absolute Auto 0.19 K/mm3 (0.02-0.50); Hematocrit 37.7 % (35.0-49.0); Hemoglobin 12.8 g/dL (12.0-15.0); Immature Granulocyte Absolute 0.03 K/mm3 (0.00-0.00); Immature Granulocyte Percent A 0.3 % (0.0-0.0); Lymphocytes Percent Auto 16.1 % (18.0-42.0); Mean Corpuscular Hemoglobin 29.4 pg (27.0-31.0); Mean Corpuscular Volume 86.5 fL (78.0-102.0); Mean Platelet Volume 12.9 fl (9.2-11.8); Monocytes Absolute Auto 0.69 K/mm3 (0.10-0.90); Monocytes Percent Auto 7.4 % (2.0-11.0); Neutrophils Absolute Auto 6.9 K/mm3 (1.7-7.2); Platelet Count Result 175 K/mm3 (150-420); Red Blood Count 4.36 M/mm3 (4.20-5.40); Red Cell Distribution Width 14.6 % (11.6-14.4); White Blood Count 9.3 K/mm3 (4.8-10.8)
[2021-12-13 14:14] LABS: HIV 1 P24 AG Negative (Negative); HIV 1/2 AB Negative (Negative); Thyroid Stimulating Hormone 0.68 uIU/mL (0.36-3.74)
[2021-12-16 02:16] LABS: Hepatitis B Surface Antigen Nonreactive (Nonreactive); Hepatitis C Signal to Cutoff 0.02 ratio (<1.00); Hepatitis C Virus Antibody Nonreactive (Nonreactive)
[2021-12-16 06:38] LABS: Rubella IgG Antibody <0.90 Index
[2021-12-16 08:29] LABS: Varicella IgG Antibody >4000.00 Index (>=165.00)
[2021-12-16 16:08] LABS: RPR Screen Non-Reactive (Non-Reactive)
[2021-12-17 00:18] LABS: Hematocrit 39.6 % (35.0-45.0); MCH 29.1 pg (27.0-33.0); MCV 88.8 fL (80.0-100.0); RDW 15.4 % (11.0-15.0); Red Blood Cell Count 4.46 Mill/uL (3.80-5.10)
[2021-12-18 22:25] LABS: Vitamin D 25 Hydroxy 20 ng/mL (30-100)
[2021-12-23 15:53] LABS: CF Result NEGATIVE (NEGATIVE); Ethnicity NG
== END 2021-12-13 13:11 | disposition home or self-care (01) ==
LOC: CHSLAB 13:12
PROVIDERS: PCP Internal Medicine; Visit Provider Student in an Organized Health Care Education/Training Program
DX: Z34.90 Encounter for supervision of normal pregnancy, unspecified, unspecified trimester (principal)
CPT/HCPCS: 36415; 81220; 81243; 82306; 83021; 84443; 85025; 86592; 86703; 86762; 86787; 86850; 86900; 86901; 87086; 87088

== ENCOUNTER 2022-01-09 18:43 | Emergency (ER) | payer OTHER, SELFPAY ==
--- NOTE | 2022-01-09 19:05 | ED.URI ---
HPI - URI/Sore Throat General Chief Complaint: Upper Respiratory Infection Stated Complaint: diarrhea,using inhaler 6-7 times a night,coughing Time Seen by Provider: 01/09/22 19:05 Source: patient and RN notes reviewed Mode of arrival: ambulatory Limitations: no limitations History of Present Illness HPI Narrative: patient is 19 weeks and has been having some nausea vomiting she is not sure if it is from her or from an illness. Both her and her daughter are sick with fever chills nausea body aches. MD elicited complaint: cough, sore throat and rhinorrhea Onset (ago): day(s) (3) Consistency: constant Severity: moderate Able to tolerate fluids by mouth: Yes Exacerbating factors: nothing Relieving factors: nothing Context: sick contacts and other(s) with similar symptoms Associated symptoms: myalgias, nausea and vomiting Treatments prior to arrival: other ( Albuterol inhaler) Related Data Home Medications Medication Instructions Recorded Confirmed prenat.vits,mariano,[id number] 1 tablet PO DAILY 11/18/21 01/09/22 Allergies Allergy/AdvReac Type Severity Reaction Status Date / Time Bleach (Sodium Hypochlorite) Allergy Unknown Difficulty Verified 12/21/21 15:42 Breathing morphine AdvReac Unknown PANIC Verified 12/21/21 15:42 ATTACK Opioids - Morphine Analogues AdvReac PANIC Verified 12/21/21 15:42 ATTACK Review of Systems Review of Systems: All systems reviewed & are unremarkable except as noted in HPI and below PMFSH Past Medical History Medical History (Updated 01/09/22 @ 20:15 by Ac Kingston MD) Asthma Body mass index [BMI] 45.0-49.9, adult (11/29/18) Cervical high risk HPV (human papillomavirus) test positive CHASTITY II (cervical intraepithelial neoplasia 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 Morbid obesity with BMI of 40.0-44.9, adult Preoperative exam for gynecologic surgery Surgical History Surgical History H/O section H/O LEEP History of appendectomy Family History Family History Mother Diabetes mellitus Sibling Hypertension Grandparent Cerebrovascular accident Father Family history of throat cancer Social History Social History Smoking status: Never smoker Alcohol intake: never Exam Const: General: healthy appearing, no acute distress and alert Nutritional Appearance: well nourished and obese morbidly obese Orientation/consciousness: patient oriented x3 HENMT: Head: normal to inspection Ears: external ears normal Eyes: Conjunctivae: conjunctivae normal Pupils: Equal, round and reactive pupils present EOM: EOMs intact bilaterally Neck: Neck: normal visual inspection Resp: Effort & Inspection: normal respiratory effort Auscultation: clear to auscultation bilaterally Cardio: Rate: regular rate Rhythm: regular rhythm GI: GI Palp: Yes Soft to palpation and No Tenderness to palpation present (GI) Auscultation: normal bowel sounds Back/Spine/Pelvis: Cervical Spine: cervical ROM normal Thoracic/Lumbar Spine: thoraco-lumbar ROM normal Skin: General skin exam: normal color Rashes: no rashes Neuro: General: patient oriented x3, moves all extremities, no focal motor deficits and CN's II-XI intact bilaterally Speech: normal speech Gait exam (Neuro): Normal gait present Extrem: General: normal to inspection and no clubbing, cyanosis or edema Psych: Mental Status: mental status grossly normal Affect: normal affect Attitude: cooperative Course Course Emergency Course: patient is currently and has been exposed to a daughter with positive influenza. She has tested negative and therefore put her on prophylaxis of Tamiflu for total of 10 days. Vital Signs Vital signs: Vital Signs Temperature 36.4 C 01/09/22 19:18 Pu
[2022-01-09 19:18] VITALS: BP 121/65; PULSE 100; RESP 20; TEMP 36.4; O2SAT 97
[2022-01-09 20:02] LABS: Influenza A QL RT-PCR Negative (Negative); Influenza B QL RT-PCR Negative (Negative); SARS-CoV-2 RNA PCR Negative (Negative)
--- NOTE | 2022-01-09 20:10 | PC.NURSE ---
8weeks unable to find heart tones, too early
[2022-01-09] MEDS: OSELTAMIVIR PHOSPHATE 75 MG CAPSULE PO (20:15)
[2022-01-09 20:20] VITALS: BP 128/80; PULSE 72; RESP 16; TEMP 36.8; O2SAT 100
--- NOTE | 2022-01-09 20:22 | PC.NURSE ---
HIV Refusal collected
== END 2022-01-09 20:25 | disposition home or self-care (01) ==
PROVIDERS: Emergency Provider Emergency Medicine; PCP Internal Medicine
DX: Z20.828 Contact with and (suspected) exposure to other viral communicable diseases (principal)
CPT/HCPCS: 87502; 99283; A9270; U0003; U0005

== ENCOUNTER 2022-01-15 02:10 | Emergency (ER) | payer OTHER, SELFPAY ==
[2022-01-15 02:10] VITALS: BP 136/80; PULSE 100; RESP 20; TEMP 36.4; O2SAT 98
[2022-01-15] MEDS: methylPREDNISolone SOD SUCC 125 MG VIAL IM (02:23)
[2022-01-15 02:25] VITALS: PULSE 100; RESP 18; O2SAT 98
--- NOTE | 2022-01-15 02:25 | PC.NURSE ---
FHT 136
[2022-01-15] MEDS: IPRATROPIUM 0.5 MG/ALBUTEROL SULFATE 2.5 MG AMPUL.NEB 3 ML INHALATION (02:30)
[2022-01-15 02:33] VITALS: PULSE 98; RESP 18; O2SAT 98
[2022-01-15 02:45] LABS: Strep Group A RT-PCR NOT DETECTED (Negative)
[2022-01-15 02:57] LABS: Influenza A QL RT-PCR Negative (Negative); Influenza B QL RT-PCR Negative (Negative); SARS-CoV-2 RNA PCR Negative (Negative)
--- NOTE | 2022-01-15 03:32 | ED.URI ---
HPI - URI/Sore Throat General Chief Complaint: Upper Respiratory Infection Stated Complaint: shortness of breath Time Seen by Provider: 01/15/22 02:14 Source: patient and RN notes reviewed Mode of arrival: ambulatory Limitations: no limitations History of Present Illness MD elicited complaint: cough and other (sob, wheezing) Onset (ago): hour(s) (6) Consistency: constant Severity: mild Pain scale (0-10): 0 Able to tolerate fluids by mouth: Yes Exacerbating factors: nothing Relieving factors: nothing Associated symptoms: nasal congestion and shortness of breath Related Data Home Medications Medication Instructions Recorded Confirmed prenat.vits,mariano,[id number] 1 tablet PO DAILY 11/18/21 01/15/22 Allergies Allergy/AdvReac Type Severity Reaction Status Date / Time Bleach (Sodium Hypochlorite) Allergy Unknown Difficulty Verified 12/21/21 15:42 Breathing morphine AdvReac Unknown PANIC Verified 12/21/21 15:42 ATTACK Opioids - Morphine Analogues AdvReac PANIC Verified 12/21/21 15:42 ATTACK Review of Systems Review of Systems: All systems reviewed & are unremarkable except as noted in HPI and below Constitutional: Constitutional: Reports no additional constitutional complaints Eyes: Eyes: Reports no additional eye complaints ENT: Reports system reviewed and no additional complaints, except as documented Cardiovascular: Cardiovascular: Reports no additional cardiovascular complaints Respiratory: Respiratory: Reports no additional respiratory complaints Gastrointestinal: Gastrointestinal: Reports no additional gastrointestinal complaints Genitourinary: Genitourinary: Reports no additional female genitourinary complaints Musculoskeletal: Musculoskeletal: Reports no additional musculoskeletal complaints Integumentary/Breasts: Skin/Breast: Reports system reviewed and no additional complaints, except as docu Neurologic: Reports system reviewed and no additional complaints, except as documented Psychiatric: Psychiatric: Reports no additional psychiatric complaints Endocrine: Endocrine: Reports no additional endocrine complaints Hematologic/Lymphatic: Hematologic/Lymphatic: Reports no additional hematologic/lymphatic complaints Allergic/Immunologic: Allergic/Immunologic: Reports no additional allergic/immunologic complaints PMFSH Past Medical History Medical History Asthma Body mass index [BMI] 45.0-49.9, adult (11/29/18) Cervical high risk HPV (human papillomavirus) test positive CHASTITY II (cervical intraepithelial neoplasia 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 Morbid obesity with BMI of 40.0-44.9, adult Preoperative exam for gynecologic surgery Surgical History Surgical History H/O section H/O LEEP History of appendectomy Family History Family History Mother Diabetes mellitus Sibling Hypertension Grandparent Cerebrovascular accident Father Family history of throat cancer Social History Social History Smoking status: Never smoker Alcohol intake: never Exam Const: General: healthy appearing, no acute distress and well nourished Nutritional Appearance: well nourished Orientation/consciousness: patient oriented x3 Limitations: no limitations HENMT: Head: normal to inspection Ears: external ears normal, TM's normal bilaterally and EAC's normal Face/Nose/Sinus: Normal external nose present, Normal nares present, normal facial exam and sinuses nontender Face and sinus: normal facial exam and sinuses nontender Mouth: Yes Normal oral and palatal mucosa present and Yes moist mucous membranes Teeth and gingiva: dentition normal Throat: posterior oropharynx normal Eyes: Conjunctivae: conjunctivae normal Pupils:
[2022-01-15 03:34] VITALS: BP 130/80; PULSE 80; RESP 18; TEMP 37.2; O2SAT 100
== END 2022-01-15 03:38 | disposition home or self-care (01) ==
PROVIDERS: Emergency Provider Emergency Medicine; PCP Internal Medicine
DX: J45.909 Unspecified asthma, uncomplicated (principal); Z20.822 Contact with and (suspected) exposure to COVID-19
CPT/HCPCS: 87636; 87651; 94640; 96372; 99283; J2930

== ENCOUNTER 2022-03-04 10:08 | Outpatient (CLI) | payer OTHER, SELFPAY | END 2022-03-04 10:09 | disposition home or self-care (01) | LOC: CHSLAB 10:10 | PROVIDERS: PCP Obstetrics & Gynecology; Visit Provider Obstetrics & Gynecology | DX: Z34.90 Encounter for supervision of normal pregnancy, unspecified, unspecified trimester (principal) | CPT/HCPCS: 99199; 36415; 82947; 85025 ==

== ENCOUNTER 2022-03-07 08:39 | Outpatient (CLI) | payer OTHER, SELFPAY ==
[2022-03-07 10:07] LABS: Basophils Absolute Auto 0.01 K/mm3 (0.00-0.10); Basophils Percent Auto 0.1 % (0.0-1.0); Eosinophils Absolute Auto 0.09 K/mm3 (0.02-0.50); Eosinophils Percent Auto 0.9 % (1.0-6.0); Hematocrit 31.5 % (35.0-49.0); Hemoglobin 10.6 g/dL (12.0-15.0); Lymphocytes Absolute Auto 1.29 K/mm3 (1.10-4.50); Lymphocytes Percent Auto 13.4 % (18.0-42.0); Mean Corpuscular HGB Conc 33.7 g/dL (32.0-36.0); Mean Corpuscular Hemoglobin 29.2 pg (27.0-31.0); Mean Corpuscular Volume 86.8 fL (78.0-102.0); Mean Platelet Volume 12.4 fl (9.2-11.8); Monocytes Absolute Auto 0.63 K/mm3 (0.10-0.90); Monocytes Percent Auto 6.5 % (2.0-11.0); Neutrophils Absolute Auto 7.5 K/mm3 (1.7-7.2); Neutrophils Percent Auto 78.1 % (50.0-70.0); Platelet Count Result 180 K/mm3 (150-420); Red Blood Count 3.63 M/mm3 (4.20-5.40); Red Cell Distribution Width 13.6 % (11.6-14.4); White Blood Count 9.6 K/mm3 (4.8-10.8)
[2022-03-07 10:44] LABS: Glucose 1 Hour PP 50gm Dose 226 mg/dL (70-130)
== END 2022-03-07 08:40 | disposition home or self-care (01) ==
LOC: CHSLAB 08:41
PROVIDERS: Visit Provider Obstetrics & Gynecology
DX: Z34.90 Encounter for supervision of normal pregnancy, unspecified, unspecified trimester (principal)
CPT/HCPCS: 36415; 82947; 85025

== ENCOUNTER 2022-03-10 12:22 | Emergency (ER) | payer OTHER, SELFPAY ==
[2022-03-10 12:36] VITALS: BP 137/90; PULSE 110; RESP 20; TEMP 36.3; O2SAT 98
--- NOTE | 2022-03-10 12:40 | ED.DENTAL ---
HPI - Dental/Oral General Chief complaint: Dental/Oral Stated complaint: swelling to face Time Seen by Provider: 03/10/22 12:32 Source: patient Mode of arrival: ambulatory Limitations: no limitations History of Present Illness HPI Narrative: This is a 22 old female with chronic tooth decay presents with some right upper premolar molar dental pain with surrounding gum inflammation and swelling and right tender submandibular gland with no fever chills and no shortness of breath. Complaint: tooth pain Onset (ago): week(s) Duration: constant Severity: mild Severity scale (1-10): 4 Exacerbating factors: chewing and cold Context: history of dental caries and poor dental care Associated symptoms: gum swelling Related Data Allergies Allergy/AdvReac Type Severity Reaction Status Date / Time Bleach (Sodium Hypochlorite) Allergy Unknown Difficulty Verified 03/10/22 12:46 Breathing morphine AdvReac Unknown PANIC Verified 03/10/22 12:46 ATTACK Opioids - Morphine Analogues AdvReac PANIC Verified 03/10/22 12:46 ATTACK Review of Systems Review of Systems: All systems reviewed & are unremarkable except as noted in HPI and below PMFSH Past Medical History Medical History Asthma Body mass index [BMI] 45.0-49.9, adult (11/29/18) Cervical high risk HPV (human papillomavirus) test positive CHASTITY II (cervical intraepithelial neoplasia 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 Morbid obesity with BMI of 40.0-44.9, adult Preoperative exam for gynecologic surgery Surgical History Surgical History H/O section H/O LEEP History of appendectomy Family History Family History Mother Diabetes mellitus Sibling Hypertension Grandparent Cerebrovascular accident Father Family history of throat cancer Social History Social History Smoking status: Never smoker Alcohol intake: never Exam Const: General: healthy appearing Nutritional Appearance: well nourished Orientation/consciousness: patient oriented x3 Limitations: no limitations HENMT: Head: normal to inspection Ears: external ears normal Face/Nose/Sinus: Normal external nose present Teeth and gingiva: abnormal tooth and associated gingiva Throat: posterior oropharynx normal Eyes: Conjunctivae: conjunctivae normal Pupils: Equal, round and reactive pupils present EOM: EOMs intact bilaterally Neck: Neck: normal visual inspection, no lymphadenopathy and no meningeal signs Chest: Chest palpation & inspection: normal inspection of the chest Resp: Effort & Inspection: normal respiratory effort Cardio: Rate: regular rate Rhythm: regular rhythm GI: Auscultation: normal bowel sounds : General: Yes bladder normal to palpation Urinary Catheter: Urinary Catheter: patent and draining Back/Spine/Pelvis: Back: no CVA tenderness Skin: General skin exam: normal color Rashes: no rashes Wounds: no wounds Neuro: General: patient oriented x3 Extrem: General: normal to inspection and no clubbing, cyanosis or edema Psych: Mental Status: mental status grossly normal Affect: normal affect Course Course Emergency Course: Patient is 28 weeks and advised to avoid NSAIDs, and can take Tylenol for pain and inflammation along with antibiotic that will be sent to her pharmacy. Advised to follow up with a dentist for further evaluation. Critical Care Time Critical Care Time Critical Care Time: No Discharge Plan Discharge Clinical Impression: Dental abscess, Toothache, Dental caries Patient Disposition: Home, Self-Care Condition: Stable Instructions: Antibiotic Form, Dental Abscess (ED), Toothache (ED) Additional Instructions: Can take Tylenol for dental pain swelling and
[2022-03-10 12:55] VITALS: BP 115/83; PULSE 108; RESP 20; TEMP 36.4; O2SAT 98
--- NOTE | 2022-03-10 13:38 | PC.NURSE ---
On 03/10/22, the student, [merry robins ], provided care and completed [facility] documentation on this patient. I have reviewed the student's documentation and agree with the findings.
== END 2022-03-10 13:08 | disposition home or self-care (01) ==
LOC: CHSED 12:47
PROVIDERS: Emergency Provider Emergency Medicine
DX: K04.7 Periapical abscess without sinus (principal); K02.9 Dental caries, unspecified
CPT/HCPCS: 99283

== ENCOUNTER 2022-03-14 05:48 | Emergency (ER) | payer OTHER, SELFPAY ==
[2022-03-14 05:50] VITALS: BP 127/86; PULSE 108; RESP 16; TEMP 36.3; O2SAT 96
--- NOTE | 2022-03-14 05:56 | ED.DENTAL ---
HPI - Dental/Oral General Chief complaint: Dental/Oral Stated complaint: TOOTHACHE Source: patient Mode of arrival: ambulatory Limitations: no limitations History of Present Illness HPI Narrative: 31-year-old female with asthma, at 29 weeks with extensive dental caries presents to the ER with -- right upper dental pain -- swelling of the right upper jaw and face. The patient was in the ER on 03/10/2022 and received amoxicillin without much improvement. MD Complaint: tooth pain Location: Tooth # (1,2,3,5) Onset (ago): day(s) Duration: constant Severity: severe Exacerbating factors: cold and heat Context: history of dental caries Associated symptoms: gum swelling Treatment prior to arrival: other ( Patient was on amoxicillin since 03/10/2022 without any improvement.) Related Data Allergies Allergy/AdvReac Type Severity Reaction Status Date / Time Bleach (Sodium Hypochlorite) Allergy Unknown Difficulty Verified 03/14/22 06:00 Breathing morphine AdvReac Unknown PANIC Verified 03/14/22 06:00 ATTACK Opioids - Morphine Analogues AdvReac PANIC Verified 03/14/22 06:00 ATTACK Review of Systems Review of Systems: All systems reviewed & are unremarkable except as noted in HPI and below Constitutional: Constitutional: Reports as per HPI and Reports no additional constitutional complaints Eyes: Eyes: Reports as per HPI and Reports no additional eye complaints ENT: Reports system reviewed and no additional complaints, except as documented Comments: Dental pain with right upper jaw swelling Cardiovascular: Cardiovascular: Reports as per HPI and Reports no additional cardiovascular complaints Respiratory: Respiratory: Reports as per HPI and Reports no additional respiratory complaints Gastrointestinal: Gastrointestinal: Reports as per HPI and Reports no additional gastrointestinal complaints Genitourinary: Genitourinary: Reports no additional female genitourinary complaints and Reports as per HPI Comments: 29 weeks . Musculoskeletal: Musculoskeletal: Reports no additional musculoskeletal complaints and Reports as per HPI Integumentary/Breasts: Skin/Breast: Reports system reviewed and no additional complaints, except as docu and Reports as per HPI Neurologic: Reports system reviewed and no additional complaints, except as documented and Reports as per HPI Psychiatric: Psychiatric: Reports no additional psychiatric complaints and Reports as per HPI Endocrine: Endocrine: Reports no additional endocrine complaints and Reports as per HPI Hematologic/Lymphatic: Hematologic/Lymphatic: Reports no additional hematologic/lymphatic complaints and Reports as per HPI Allergic/Immunologic: Allergic/Immunologic: Reports no additional allergic/immunologic complaints and Reports as per HPI [facility] Past Medical History Medical History Asthma Body mass index [BMI] 45.0-49.9, adult (11/29/18) Cervical high risk HPV (human papillomavirus) test positive CHASTITY II (cervical intraepithelial neoplasia 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 Morbid obesity with BMI of 40.0-44.9, adult Preoperative exam for gynecologic surgery Surgical History Surgical History H/O section H/O LEEP History of appendectomy Family History Family History Mother Diabetes mellitus Sibling Hypertension Grandparent Cerebrovascular accident Father Family history of throat cancer Social History Social History Smoking status: Never smoker Alcohol intake: never Exam Const: Nutritional Appearance: obese Orientation/consciousness: patient oriented x3 Limitations: no limitations HENMT: Head: normal to inspection Ears: external ears normal Face/Nose/Sin
[2022-03-14 06:34] VITALS: BP 137/83; PULSE 98; RESP 16; O2SAT 99
== END 2022-03-14 06:40 | disposition home or self-care (01) ==
PROVIDERS: Emergency Provider Internal Medicine Critical Care Medicine
DX: O26.893 Other specified pregnancy related conditions, third trimester (principal); K02.9 Dental caries, unspecified; Z3A.29 29 weeks gestation of pregnancy
CPT/HCPCS: 99283

== ENCOUNTER 2022-04-21 09:56 | Outpatient (CLI) | payer OTHER, SELFPAY ==
[2022-04-21 10:11] LABS: Basophils Absolute Auto 0.02 K/mm3 (0.00-0.10); Basophils Percent Auto 0.2 % (0.0-1.0); Eosinophils Absolute Auto 0.07 K/mm3 (0.02-0.50); Eosinophils Percent Auto 0.8 % (1.0-6.0); Hematocrit 29.9 % (35.0-49.0); Hemoglobin 9.7 g/dL (12.0-15.0); Immature Granulocyte Absolute 0.05 K/mm3 (0.00-0.00); Immature Granulocyte Percent A 0.6 % (0.0-0.0); Lymphocytes Absolute Auto 1.43 K/mm3 (1.10-4.50); Lymphocytes Percent Auto 16.2 % (18.0-42.0); Mean Corpuscular HGB Conc 32.4 g/dL (32.0-36.0); Mean Corpuscular Hemoglobin 27.1 pg (27.0-31.0); Mean Corpuscular Volume 83.5 fL (78.0-102.0); Monocytes Absolute Auto 0.74 K/mm3 (0.10-0.90); Monocytes Percent Auto 8.4 % (2.0-11.0); Neutrophils Absolute Auto 6.5 K/mm3 (1.7-7.2); Neutrophils Percent Auto 73.8 % (50.0-70.0); Platelet Count Result 146 K/mm3 (150-420); Red Blood Count 3.58 M/mm3 (4.20-5.40); Red Cell Distribution Width 13.7 % (11.6-14.4); White Blood Count 8.8 K/mm3 (4.8-10.8)
[2022-04-21 10:48] LABS: HIV 1 P24 AG Negative (Negative); HIV 1/2 AB Negative (Negative)
[2022-04-24 14:20] LABS: RPR Screen Non-Reactive (Non-Reactive)
== END 2022-04-21 09:57 | disposition home or self-care (01) ==
LOC: CHSLAB 09:58
PROVIDERS: Visit Provider Obstetrics & Gynecology
DX: Z34.90 Encounter for supervision of normal pregnancy, unspecified, unspecified trimester (principal)
CPT/HCPCS: 36415; 85025; 86592; 86703

== ENCOUNTER 2022-05-06 13:00 | Outpatient (RCR) | payer OTHER, SELFPAY ==
[2022-03-24 12:42] VITALS: BMI 103.4
== END 2022-06-13 08:23 | disposition home or self-care (01) ==
LOC: ANHDMC 13:00
PROVIDERS: Visit Provider Obstetrics & Gynecology
DX: O24.410 Gestational diabetes mellitus in pregnancy, diet controlled (principal); Z3A.00 Weeks of gestation of pregnancy not specified; Z71.3 Dietary counseling and surveillance; Z71.89 Other specified counseling
CPT/HCPCS: 97802; 99199; G0108

== ENCOUNTER 2022-05-16 13:54 | Outpatient (RCR) | payer OTHER, SELFPAY ==
--- NOTE | ~2022-05-16 | US_ITS ---
EXAMINATION: US OB BPP wo non-stress DATE: 05/16/2022 14:52 INDICATION: Gestational diabetes. Third trimester. TECHNIQUE: Real-time pelvic ultrasound was performed. COMPARISON: None. FINDINGS: There is a single living fetus in vertex presentation. The placenta is anterior. heart rate is 136 beats per minute (bpm). Biophysical profile performed by the technologist: breathing (30 sec sustained breathing in 30 minutes): 2 out of 2 movement (3 gross body movements in 30 minutes): 2 out of 2 tone (one episode of [id number]-[id number] limb movement): 2 out of 2 Amniotic fluid pocket (2 cm): 2 out of 2 Total score: 8 out of 8 IMPRESSION: 1. Single living fetus in vertex presentation. 2. Biophysical profile 8 out of 8. Reviewed, dictated and finalized at location A.
[2022-05-16 14:27] VITALS: BP 125/68; PULSE 73
== END 2022-08-14 23:59 | disposition home or self-care (01) ==
LOC: ANHOBOP 13:54
PROVIDERS: Visit Provider Obstetrics & Gynecology
DX: O24.419 Gestational diabetes mellitus in pregnancy, unspecified control (principal); Z3A.38 38 weeks gestation of pregnancy
CPT/HCPCS: 59025; 76819

== ENCOUNTER 2022-05-28 13:00 | Outpatient (CLI) | payer OTHER, SELFPAY ==
[2022-05-28 13:20] LABS: Hematocrit 33.2 % (37.0-47.0); Hemoglobin 10.5 g/dL (12.0-15.0); Immature Platelet Fraction Pct 18.5 % (0.9-11.2); Mean Corpuscular HGB Conc 31.6 g/dl (32-36); Mean Corpuscular Hemoglobin 25.1 pg (26-34); Mean Corpuscular Volume 79.2 fl (80-100); Platelet Count Result 154 k/mm3 (150-375); Red Blood Count 4.19 M/mm3 (4.2-5.4); Red Cell Distribution Width 14.4 % (11.5-14.5); White Blood Count 8.6 K/mm3 (4.5-10.0)
[2022-05-30 09:40] LABS: Rapid Plasma Reagin Non-Reactive (NonReactive)
== END 2022-05-28 13:01 | disposition home or self-care (01) ==
PROVIDERS: Visit Provider Obstetrics & Gynecology
DX: Z01.818 Encounter for other preprocedural examination (principal)
CPT/HCPCS: 36415; 85027; 85055; 86592; 86850; 86900; 86901

== ENCOUNTER 2022-05-30 09:56 | Inpatient (IN) | payer OTHER, SELFPAY ==
[2022-05-30] VITALS (49 sets, daily range): BP systolic 68–127; BP diastolic 27–88; PULSE 50–86; RESP 14–20; TEMP 36.1–37.3; O2SAT 94–100; BMI 51.7
--- NOTE | 2022-05-30 10:43 | LDADM ---
This patient, Isma Lopez, was admitted to Labor/Delivery/Recovery 119 on 05/30/22 at 09:56. Plans for labor, pain management and were discussed with patient. Patient/family oriented to hospital policies and general routines including ID bracelet, bed and alarms, visiting hours, pain management, procedures, bathroom and other care routines, personal items, smoking policy, room service/diet and guest tray routines, security routines, and visiting hours. Patient/Family are encouraged to report perceived risks to care and to ask questions if they do not understand what they are told or what they should do. See [facility] for further documentation.
[2022-05-30] MEDS: LACTATED RINGERS 1,000 ML 125 ML IV CONT (10:49)
--- NOTE | 2022-05-30 11:31 | PM.IMHP ---
H&P: HPI History of Present Illness Date/Time: 05/30/22 11:31 Chief Complaint: Repeat section Narrative: patient is a 32-year-old 011 at 40 weeks by LMP of 05/09/2021 consistent with a 9 week ultrasound. course significant for history of prior for arrest of dilation. Also significant for gestational diabetes not controlled she is taking medication declines insulin management are admission to better control her blood sugars. Has a history of being on compliant during the course. She has been getting surveillance testing which has been normal. she has been measuring large for gestational age. She has been recommended for delivery by due to the large for gestational age and poor controlled diabetes and noncompliance. she states that she had some type of anxious or some type of reaction with her last the records were reviewed there was nothing in the records about an adverse reaction with anesthesia or during the . Review of Systems Review of Systems: All systems reviewed & are unremarkable except as noted in HPI and below Constitutional: Constitutional: Reports no additional constitutional complaints and Denies headache(s) Eyes: Eyes: Denies spots in vision ENT: Reports system reviewed and no additional complaints, except as documented and Denies headache(s) Cardiovascular: Cardiovascular: Denies chest pain and Denies dyspnea Respiratory: Respiratory: Denies dyspnea Gastrointestinal: Gastrointestinal: Reports no additional gastrointestinal complaints Genitourinary: Genitourinary: Reports amenorrhea Musculoskeletal: Musculoskeletal: Reports no additional musculoskeletal complaints Integumentary/Breasts: Skin/Breast: Denies breast mass and Denies rash Neurologic: Denies headache(s) Psychiatric: Psychiatric: Reports no additional psychiatric complaints COUNT INCLUDES THE [facility] Past Medical History Medical History Asthma Body mass index [BMI] 45.0-49.9, adult (11/29/18) Cervical high risk HPV (human papillomavirus) test positive CHASTITY II (cervical intraepithelial neoplasia 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 Morbid obesity with BMI of 40.0-44.9, adult Preoperative exam for gynecologic surgery Surgical History Surgical History H/O section H/O LEEP History of appendectomy Family History Family History Mother Diabetes mellitus Sibling Hypertension Grandparent Cerebrovascular accident Father Family history of throat cancer Social History Social History Smoking status: Never smoker Alcohol intake: never Substance use: never Lack of Transportation: No Lack of Food: Never True Current Housing: I Have Housing Concerned About Future Housing: No Difficulty Paying Gas/Electric Bills: No Difficulty Paying for Meds: No Currently Unemployed: No Education: High School Diploma/GED Difficulty w/ Childcare or Family Care: No Spiritual care concerns: No Meds Home Medications and Allergies Home Medications Medication Instructions Recorded Confirmed Type albuterol sulfate 90 mcg/actuation 2 puff inhalation QID #8.5 grams 01/15/22 05/30/22 Rx aerosol inhaler (Ventolin HFA) diabetic supplies, miscellan. #1 ea 03/09/22 Rx prenat.vits,mariano,zqo-kljc-hqqah 1 tablet PO DAILY 03/25/22 05/30/22 History glucagon 1 mg/0.2 mL subcutaneous 1 mg (0.2 mL) subcut ONCE #3 04/25/22 05/30/22 Rx auto-injector (Gvoke HypoPen syringes 1-Pack) blood sugar diagnostic (OneTouch #100 ea 05/02/22 Rx Verio test strips) glyburide 2.5 mg tablet 2.5 mg PO BID #60 tabs 05/24/22 05/30/22 Rx Allergies Allergy/AdvReac Type Severity Reaction Status Date / Time Bleach (Sodium
[2022-05-30 11:44] LABS: Glucose Point of Care 73 mg/dl (65-105)
--- NOTE | 2022-05-30 11:44 | WPDHPUPDATE1 ---
History and Physical Update Update Date/Time: 05/30/22 11:44 History and Physical has been reviewed, including an updated exam of the patient. There are NO changes in the patient's condition. Risks, benefits, and alternatives have been discussed and questions answered. Patient agrees to proceed with procedure.
[2022-05-30] MEDS: ceFAZolin 3 GM/D5W 100 ML 100 ML IVPB (11:58)
--- NOTE | 2022-05-30 13:53 | W.PM.PROC2 ---
Procedure Note - Detailed Date of Procedure 05/30/22 Pre-op Diagnosis Scheduled C/S 2. Prior section 3. Poor controlled gestational diabetes Post-op Diagnosis Same Procedure Performed repeat section vacuum assist delivery of the head Surgeon Shawn Silvestre MD Environmental Remediation Specialist Lesley Griffin Anesthesia Spinal Indications patient at 40 weeks with prior section has poor controlled gestational diabetes and large for gestational age fetus and has been recommended for a repeat section for delivery Findings female infant normal fallopian tubes and ovaries infant weighing 11 0.8 lb Description of Procedure After informed consent, risks and benefits of the procedure was discussed with the patient. The patient was taken to the operating room where she was placed in the dorsal lithotomy position with leftward tilt. After the prior placed epidural anesthesia was found to be adequate, The Trexi was placed to assist with elevation of pannus. She was then prepped and draped in the usual sterile fashion. A Pfannenstiel skin incision was made with a scalpel and carried through to the underlying layer of fascia. The fascia was then nicked in the midline, extending bilaterally. The fascia was dissected off the rectus muscles bluntly and sharply, superiorly and inferiorly. scar tissue was released with the Bovie. The rectus muscles were in the midline, and peritoneum was identified and entered bluntly. The pelvic organs were visualized. The bladder blade was then inserted. The head was palpated at this time and if felt that the baby's position was changing from vertex to oblique. The vesicouterine peritoneum was identified and entered sharply with Metzenbaum scissors and extended bilaterally and then the bladder flap was created digitally. The low transverse uterine incision was then made with the scalpel and extended with bilateral index fingers in a crescent-shaped fashion. The head was delivered. A large amount of amniotic fluid clear was released upon entering the uterus. The head was in the upper oblique position. After attempted to deliver the head with fundal pressure but this was difficult for the endodontic assistant to palpate the fundus, the head was at incision, the vacuum was placed once and with gently traction the head was delivered, the nose and mouth suctioned with the bulb, and due and the rest of the infant was delivered. The was then handed off to the awaiting pediatric staff. The placenta was then delivered manually. The membranes were removed with sponge and ring forceps. The uterine cavity was sponge curretted. Uterine tone good. The uterus was then exteriorized. The uterine incision was then closed with 0 vicryl in a running locked fashion. Hemostasis noted. A second layer of 0 vicryl was used in an imbricating fashion for hemostasis. The uterus was then returned to the abdomen. Bilateral gutters were cleared off all clots and debris. The uterine incision was noted to be hemostatic. Interceed placed on uterine incision and vertically on front of uterus. The muscle bellies were inspected and noted to be hemostatic. The peritoneum was approximated with 3.0 vicryl. The subfascial layer was noted to be hemostatic, and the fascia was closed with 0 Vicryl in a running fashion. The subcutaneous layer was then closed with 3-0 Vicryl in a subcutaneous fashion. The skin was closed with dissolveable ritika. The extended application dressing was applied. All instruments, needle, and lap counts were correct x3. The patient was taken to the recovery room in stable condition. Estimated Blood Loss 660 Drains No Packing No Pathology Yes ( placenta and cord) Complications No immediate complications Condition Stable Disposition Floor [facility] Billing Surgery - Charge Forward: Surgery Billing
[2022-05-30] MEDS: diphenhydrAMINE HCl INJ 50 MG/ML VIAL 25 MG IV PUSH (14:15)
[2022-05-30] MEDS: OXYTOCIN 30 UNITS/NS 500 ML 30 UNITS/500 ML BAG 125 UNITS IV CONT (14:18)
--- NOTE | 2022-05-30 15:55 | PC.NURSE ---
Pt to nursery to see her baby
[2022-05-30] MEDS: DEXTROSE 5%/0.45% SOD CHL 1,000 ML 125 ML IV CONT (20:09)
[2022-05-31 04:25] VITALS: BP 134/84; PULSE 100; RESP 18; TEMP 36.9; O2SAT 98
[2022-05-31 04:40] LABS: Glucose Point of Care 116 mg/dl (65-105)
[2022-05-31 04:53] LABS: Basophils Percent Auto 0.2 % (0.2-1.2); Eosinophils Percent Auto 0.3 % (0-4.4); Hematocrit 27.7 % (37.0-47.0); Hemoglobin 8.8 g/dL (12.0-15.0); Immature Granulocyte Absolute 0.06 K/mm3 (0.00-0.031); Immature Granulocyte Percent A 0.5 % (0-0.5); Immature Platelet Fraction Pct 17.2 % (0.9-11.2); Lymphocytes Absolute Auto 1.43 K/mm3 (0.9-3.2); Lymphocytes Percent Auto 12.9 % (18.3-44.2); Mean Corpuscular HGB Conc 31.8 g/dl (32-36); Mean Corpuscular Hemoglobin 25.1 pg (26-34); Mean Corpuscular Volume 79.1 fl (80-100); Mean Platelet Volume 13.6 fl (7.4-10.4); Monocytes Absolute Auto 1.1 K/mm3 (0.1-0.6); Monocytes Percent Auto 9.8 % (2.6-8.5); Neutrophils Absolute Auto 8.5 K/mm3 (1.3-6.7); Neutrophils Percent Auto 76.3 % (45.5-73.1); Platelet Count Result 128 k/mm3 (150-375); Red Cell Distribution Width 14.6 % (11.5-14.5); White Blood Count 11.1 K/mm3 (4.5-10.0)
--- NOTE | 2022-05-31 07:25 | PC.NURSE ---
PT introductions made and plan of care discussed per post op c section, pain management, bottle feeding, daily care activities. PT sole recipient of such instructions and no barriers to learning identified at this time. PT received such instructions per one to one discussion, mom baby care guide and demonstrations this shift. PT verbalized understanding of such care.
[2022-05-31 07:30] VITALS: BP 135/87; PULSE 103; RESP 18; TEMP 37.4; O2SAT 99
[2022-05-31] MEDS: SIMETHICONE 80 MG TAB.CHEW PO ×2 (09:03→12:59)
[2022-05-31] MEDS: IBUPROFEN 600 MG TABLET PO ×2 (09:03→16:20)
[2022-05-31] MEDS: DOCUSATE SODIUM 100 MG CAPSULE PO ×2 (09:04→16:20)
[2022-05-31] MEDS: POLYSACCHARIDE IRON COMPLEX 150 MG CAPSULE PO ×2 (09:04→16:20)
[2022-05-31] MEDS: HYDROcodone/acetaminophen (*CRX) 5-325 MG TABLET 1 TAB PO ×3 (09:04→20:38)
[2022-05-31 11:57] VITALS: BP 123/80; PULSE 101; RESP 16; TEMP 36.9; O2SAT 99
--- NOTE | 2022-05-31 16:12 | PM.OBPNVD ---
OB - PN: Subj Subjective Date/time seen: 05/31/22 0800 She has ambulated in room, tolerated liquids, she is not sure if she has had flatus. Baby is doing well. She is requesting pain medicine. No lightheadedness or dizziness. Patient comments: incisional pain OB - PN: Obj Data Labs 05/31/22 04:34 Labs: Laboratory Results - last 24 hr 05/31/22 05/31/22 04:33 04:34 WBC 11.1 H RBC 3.50 L Hgb 8.8 L Hct 27.7 L MCV 79.1 L MCH 25.1 L MCHC 31.8 L RDW 14.6 H Plt Count 128 L MPV 13.6 H Immature Gran % (Auto) 0.5 Neut % (Auto) 76.3 H Lymph % (Auto) 12.9 L [place] % (Auto) 9.8 H Eos % (Auto) 0.3 Baso % (Auto) 0.2 Lymph # (Auto) 1.43 [place] # (Auto) 1.1 H Eos # (Auto) 0.0 Baso # (Auto) 0.0 Abs Immat Gran (auto) 0.06 H Absolute Neuts (auto) 8.5 H Absolute Nucleated RBC 0.0 Nucleated RBC % 0.0 % Immature Plt Fraction 17.2 H POC Capillary Glucose 116 H OB - PN A/P Assessment and Plan (1) Delivery by section: Status: Acute Assessment and Plan: POD 1 s/p repeat section. Encourage oral pain medication. Routine care. Asymptomatic anemia. Time Spent With Patient Time: Total time spent is greater than 50% in coordination of care (as documented) at patient's floor/unit and/or counseling patient: Exam Const: General: comfortable and no acute distress Eyes: General: appearance normal, both eyes and all related structures Resp: Effort & Inspection: normal respiratory effort Cardio: Rhythm: regular rhythm GI: Other: nondistended, dressing intact Psych: Mental Status: mental status grossly normal Affect: normal affect
[2022-05-31 20:30] VITALS: BP 141/79; PULSE 91; RESP 16; TEMP 36.6; O2SAT 98
[2022-06-01] MEDS: HYDROcodone/acetaminophen (*CRX) 5-325 MG TABLET 1 TAB PO ×4 (05:27→23:50)
[2022-06-01] MEDS: IBUPROFEN 600 MG TABLET PO ×3 (05:28→23:50)
[2022-06-01 07:46] VITALS: BP 137/99; PULSE 93; RESP 20; TEMP 36.7; O2SAT 98
[2022-06-01] MEDS: DOCUSATE SODIUM 100 MG CAPSULE PO ×2 (07:48→16:13)
[2022-06-01] MEDS: POLYSACCHARIDE IRON COMPLEX 150 MG CAPSULE PO ×2 (07:48→16:13)
--- NOTE | 2022-06-01 08:33 | PC.NURSE ---
On 06/01/22, the student, Jeane Albert, provided care and completed [employer] documentation on this patient. I have reviewed the student's documentation and agree with the findings.
[2022-06-01 12:50] VITALS: BP 116/79; PULSE 95; RESP 16; O2SAT 98
--- NOTE | 2022-06-01 15:20 | PM.OBPNVD ---
OB - PN: Subj Subjective Date/time seen: 06/01/22 15:20 Interval history: She states she feels better today after passing a lot of flatus, lochia decreased, she has ambulated in room, tolerating regular diet. No headache, scotomata or RUQ pain. Denies leg pain. Pain is well controlled. OB - PN: Obj Data Labs 05/31/22 04:34 OB - PN A/P Assessment and Plan (1) Delivery by section: Status: Acute Assessment and Plan: POD2 - she feels better. Continue routine post care. Time Spent With Patient Time: Total time spent is greater than 50% in coordination of care (as documented) at patient's floor/unit and/or counseling patient: Exam Const: General: comfortable and no acute distress Eyes: General: appearance normal, both eyes and all related structures Resp: Effort & Inspection: normal respiratory effort Auscultation: clear to auscultation bilaterally Cardio: Rate: regular rate Psych: Mental Status: mental status grossly normal Affect: normal affect
[2022-06-01 16:15] VITALS: BP 131/80; PULSE 88; RESP 16; TEMP 36.8; O2SAT 99
[2022-06-01 20:20] VITALS: BP 129/84; PULSE 100; RESP 18; TEMP 37; O2SAT 99
[2022-06-01 23:50] VITALS: BP 125/82; PULSE 92
[2022-06-02 05:00] VITALS: BP 122/77; PULSE 78
[2022-06-02 07:40] VITALS: BP 118/86; PULSE 83; RESP 18; TEMP 36.6; O2SAT 99
--- NOTE | 2022-06-02 08:00 | PC.NURSE ---
PT introductions made and plan of care discussed per post op c section, pain management, bottle feeding, daily care activities and pending discharge to home. PT sole recipient of such instructions and no barriers to learning identified at this time. PT received such instructions per one to one discussion, mom baby care guide and demonstrations this shift. PT verbalized understanding of such care.
[2022-06-02] MEDS: IBUPROFEN 600 MG TABLET PO (08:23)
[2022-06-02] MEDS: HYDROcodone/acetaminophen (*CRX) 5-325 MG TABLET 1 TAB PO ×2 (08:23→11:30)
[2022-06-02] MEDS: POLYSACCHARIDE IRON COMPLEX 150 MG CAPSULE PO (08:23)
[2022-06-02] MEDS: DOCUSATE SODIUM 100 MG CAPSULE PO (08:23)
--- NOTE | 2022-06-02 09:57 | PM.OBPNVD ---
OB - PN: Subj Subjective Date/time seen: 06/02/22 09:57 Interval history: She states pain controlled. Lochia light. Ambulating well. No leg pain or SOB. Tolerating regular diet. OB - PN: Obj Data Labs 05/31/22 04:34 OB - PN A/P Assessment and Plan (1) Delivery by section: Status: Acute Assessment and Plan: POD 3 s/p repeat section. She is doing well. Discussed discharge precautions. Time Spent With Patient Time: Total time spent is greater than 50% in coordination of care (as documented) at patient's floor/unit and/or counseling patient: Exam Const: General: comfortable and no acute distress Resp: Effort & Inspection: normal respiratory effort GI: Other: Dressing intact Extrem: General: normal to inspection and no calf tenderness bilaterally Psych: Mental Status: mental status grossly normal Affect: normal affect
--- NOTE | 2022-06-02 11:15 | PC.NURSE ---
PT received discharge instructions per protocol and verbalized understanding of such care. Patient was given the opportunity to view the discharge video Mother & Baby Care, The First Two Weeks and to ask questions. Patient declined viewing the video and has been given the mother/baby guide for home reference.
--- NOTE | 2022-06-02 11:45 | PC.NURSE ---
PT discharged to home ambulatory accompanied by fob and infant and taken to waiting car. Follow up appts confirmed
[2022-06-03 11:10] VITALS: BP 124/82; PULSE 85; RESP 20; TEMP 36.8; O2SAT 98
--- NOTE | 2022-06-03 11:45 | PC.NURSE ---
MMR vaccine was not given prior to PP discharge. Vaccine given at PP follow-up visit but medication was unable to be brought up on pt's EMAR. This note will serve as the administration record for the MMR. Vaccine given in left upper extremity, SQ. Lot #: [id number]. Exp: 04/14/2023.
--- NOTE | 2022-06-22 10:22 | PM.OBDSVD ---
DS: Admitting Diagnosis Discharge Date 06/02/22 Admitting Diagnosis repeat section Poor controlled gestational diabetes. DS: Discharge Diagnosis Discharge Diagnosis (1) Delivery by section: Status: Acute (2) Gestational diabetes: Code(s): O24.419 - Gestational diabetes mellitus in , unspecified control Status: Acute OB - DS: Summary Hospital Course Hospital Course: She was admitted for elective repeat section secondary to poor controlled diabetes with presumed macrosomic fetus. She underwent an uncomplicated repeat section. Postop day 1 she was doing well. Had adequate pain control had positive flatus. She was ambulating. Postop day 2 and 3 she was doing well she was discharged home on postop day 3 discharge precautions discussed. Baby was doing well. OB Procedures : NST and Ultrasound OB Procedures Intrapartum: OB Procedures: : None Peripartum Data Infant Delivery Method: Section Procedures: Procedures Operation Date: 05/30/22 12:00 <No data on this case meets the specified criteria> Operation Date: 05/30/22 12:00 Actual Procedure Side Surgeon p Section Shawn Silvestre MD Time Spent with Patient Time attestation: Total time spent providing and/or coordinating discharge services: Exam Const: General: cooperative Orientation/consciousness: oriented to person, oriented to place and oriented to time HENMT: Face/Nose/Sinus: Normal external nose present Eyes: General: appearance normal, both eyes and all related structures Resp: Effort & Inspection: normal respiratory effort GI: Inspection: normal to inspection Other: dressing intact. Clean. Skin: General skin exam: normal color Neuro: General: oriented to person, oriented to place and oriented to time Extrem: General: normal to inspection and no calf tenderness Psych: Appearance: grossly normal Mental Status: mental status grossly normal DS: Data Data Completed and Pending Completed studies during hospitalization: Pending at discharge 05/30/22 12:41 Surgical [PTH] Routine Discharge Plan Discharge Attending physician on discharge: Shawn Silvestre Discharging Clinician: Shawn Silvestre Anticipated Discharge Date/Time: 06/02/22 10:01 Patient Disposition: Home, Self-Care Activity: may shower, no straining, no driving and pelvic rest Diet: regular Wound Care Instructions: follow printed instructions, keep dressing dry and other - see discharge instructions Discharge Instructions: Take a daily iron supplement, SloFe, once a day. Education: Mom and Baby Guide Given to: Mother Follow-Up: Call your delivering provider's office for an appointment to be seen in: 1 Week Mom and baby should come to the [facility] for the follow-up appointment. Appointment Date/Time: June 03, 2022 at 11:00 am What to expect at your follow-up visit: Blood Pressure Check Call [phone] if you are unable to keep your appointment time. BREAST CARE: * Wear a snug supportive bra. * For engorgement discomfort: Bottle Feeding: * May apply ice packs ABDOMINAL INCISION: (if applicable) * Allow incision to air dry * Do NOT use lotions for powders on your incision * When showering, allow soap and water to run over the incision, but do not wash incision PERINEAL CARE: * Until bleeding stops, use your hilario bottle after urinating * Change your pad frequently throughout the day * No tub baths until seen by your physician - You may shower ACTIVITY: * Rest as much as possible. * Do not exercise or lift anything heavier than your baby (such as laundry or other children.) * Avoid stairs or driving as much as possible. * Do not put anything into the vagina. No douching, tampons, or sexual activity until seen by physician. NOTIFY PHYSICIAN IF YOU HAVE A
== END 2022-06-02 11:45 | disposition home or self-care (01) | DRG 540 ==
LOC: ANHLDR 11:52 → ANHOB2 16:20
PROVIDERS: Admitting Provider Obstetrics & Gynecology; Visit Provider Obstetrics & Gynecology
PROC: 10D00Z1 Extraction of Products of Conception, Low, Open Approach (ICD-10-PCS; CPT 59514; principal; 2022-05-30 12:00)
DX: O24.425 Gestational diabetes mellitus in childbirth, controlled by oral hypoglycemic drugs (principal); E66.01 Morbid (severe) obesity due to excess calories; O99.214 Obesity complicating childbirth; Z37.0 Single live birth; Z3A.40 40 weeks gestation of pregnancy; O34.219 Maternal care for unspecified type scar from previous cesarean delivery; O99.52 Diseases of the respiratory system complicating childbirth; J45.909 Unspecified asthma, uncomplicated; Z91.148 Patient's other noncompliance with medication regimen for other reason; Z90.49 Acquired absence of other specified parts of digestive tract
CPT/HCPCS: 36415; 82948; 85025; 85055; 88307; 90710; A9270; J0131; J0690; J1200; J2274; J2370; J2405; J2590; J2704; J7120

== ENCOUNTER 2023-01-18 07:55 | Emergency (ER) | payer OTHER, SELFPAY ==
[2023-01-18 07:55] VITALS: BP 140/98; PULSE 96; RESP 16; TEMP 36.1; O2SAT 98
--- NOTE | 2023-01-18 08:09 | ED.URI ---
HPI - URI/Sore Throat General Chief Complaint: Upper Respiratory Infection Stated Complaint: sore throat Time Seen by Provider: 01/18/23 08:09 Source: patient Mode of arrival: ambulatory Limitations: no limitations History of Present Illness HPI Narrative: 32-year-old female with a history of asthma presents to the ER with a 2 day history of -- sore throat -- headache, body ache no fever or chills no nausea/ vomiting /abdominal pain / diarrhea. MD elicited complaint: sore throat Onset (ago): day(s) ( Symptoms started 2 days ago) Consistency: constant Severity: mild Able to tolerate fluids by mouth: Yes Exacerbating factors: nothing Relieving factors: nothing Associated symptoms: myalgias and sore throat Treatments prior to arrival: none Related Data Allergies Allergy/AdvReac Type Severity Reaction Status Date / Time Bleach (Sodium Hypochlorite) Allergy Unknown Difficulty Verified 01/18/23 08:14 Breathing morphine AdvReac Unknown PANIC Verified 01/18/23 08:14 ATTACK Opioids - Morphine Analogues AdvReac PANIC Verified 01/18/23 08:14 ATTACK Review of Systems Review of Systems: All systems reviewed & are unremarkable except as noted in HPI and below Constitutional: Constitutional: Reports as per HPI and Reports no additional constitutional complaints Eyes: Eyes: Reports as per HPI and Reports no additional eye complaints ENT: Reports system reviewed and no additional complaints, except as documented and Reports sore throat Cardiovascular: Cardiovascular: Reports as per HPI and Reports no additional cardiovascular complaints Respiratory: Respiratory: Reports as per HPI and Reports no additional respiratory complaints Gastrointestinal: Gastrointestinal: Reports as per HPI and Reports no additional gastrointestinal complaints Genitourinary: Genitourinary: Reports no additional female genitourinary complaints and Reports as per HPI Musculoskeletal: Musculoskeletal: Reports no additional musculoskeletal complaints and Reports as per HPI Integumentary/Breasts: Skin/Breast: Reports system reviewed and no additional complaints, except as docu and Reports as per HPI Neurologic: Reports system reviewed and no additional complaints, except as documented and Reports as per HPI Psychiatric: Psychiatric: Reports no additional psychiatric complaints and Reports as per HPI Endocrine: Endocrine: Reports no additional endocrine complaints and Reports as per HPI Hematologic/Lymphatic: Hematologic/Lymphatic: Reports no additional hematologic/lymphatic complaints and Reports as per HPI Allergic/Immunologic: Allergic/Immunologic: Reports no additional allergic/immunologic complaints and Reports as per HPI PMFSH Past Medical History Medical History Asthma Body mass index [BMI] 45.0-49.9, adult (11/29/18) Cervical high risk HPV (human papillomavirus) test positive CHASTITY II (cervical intraepithelial neoplasia II) Gestational diabetes 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 Morbid obesity with BMI of 40.0-44.9, adult Preoperative exam for gynecologic surgery Surgical History Surgical History H/O section x2 H/O LEEP History of appendectomy Family History Family History Mother Diabetes mellitus Sibling Hypertension Grandparent Cerebrovascular accident Father Family history of throat cancer Social History Social History Smoking status: Never smoker Alcohol intake: never Substance use: never Lack of Transportation: No Lack of Food: Never True Current Housing: I Have Housing Concerned About Future Housing: No Difficulty Paying Gas/Electric Bills: No Difficulty Paying for Meds: No Currently Unemployed: No Education: High School Di
[2023-01-18 09:03] LABS: Strep Group A RT-PCR NOT DETECTED (Negative)
[2023-01-18 09:13] LABS: Influenza A QL RT-PCR Negative (Negative); Influenza B QL RT-PCR Negative (Negative); SARS-CoV-2 RNA PCR Negative (Negative)
[2023-01-18 09:14] LABS: RSV RNA, RT-PCR Negative (Negative)
[2023-01-18 09:56] VITALS: BP 148/90; PULSE 92; RESP 18; TEMP 36.3; O2SAT 99
== END 2023-01-18 09:58 | disposition home or self-care (01) ==
PROVIDERS: Emergency Provider Internal Medicine Critical Care Medicine
DX: J06.9 Acute upper respiratory infection, unspecified (principal); J45.909 Unspecified asthma, uncomplicated; Z20.822 Contact with and (suspected) exposure to COVID-19
CPT/HCPCS: 87637; 87651; 99283

== ENCOUNTER 2023-12-28 16:09 | Emergency (ER) | payer OTHER, SELFPAY ==
[2023-12-28 16:09] VITALS: BP 124/88; PULSE 92; RESP 18; TEMP 36.5; O2SAT 99
--- NOTE | 2023-12-28 16:29 | ED.URI ---
HPI - URI/Sore Throat General Chief Complaint: Upper Respiratory Infection Stated Complaint: congestion, sinus pressure Time Seen by Provider: 12/28/23 16:17 Source: patient Mode of arrival: ambulatory Limitations: no limitations History of Present Illness HPI Narrative: this is a 33-year-old female who presents with frontal and maxillary sinus tenderness with bilateral ear pressure with no fever chills no shortness of breath no nausea vomiting no chest pain. MD elicited complaint: nasal congestion and sinus pain Onset (ago): day(s) Consistency: constant Severity: moderate Description of mucous: yellow Able to tolerate fluids by mouth: Yes Related Data Allergies Allergy/AdvReac Type Severity Reaction Status Date / Time Bleach (Sodium Hypochlorite) Allergy Unknown Difficulty Verified 12/28/23 16:13 Breathing morphine AdvReac Unknown PANIC Verified 12/28/23 16:13 ATTACK Opioids - Morphine Analogues AdvReac PANIC Verified 12/28/23 16:13 ATTACK Review of Systems Review of Systems: All systems reviewed & are unremarkable except as noted in HPI and below PMFSH Past Medical History Medical History Asthma Body mass index [BMI] 45.0-49.9, adult (11/29/18) Cervical high risk HPV (human papillomavirus) test positive CHASTITY II (cervical intraepithelial neoplasia II) Gestational diabetes 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 Morbid obesity with BMI of 40.0-44.9, adult Preoperative exam for gynecologic surgery Surgical History Surgical History H/O section x2 H/O LEEP History of appendectomy Family History Family History Mother Diabetes mellitus Sibling Hypertension Grandparent Cerebrovascular accident Father Family history of throat cancer Social History Social History Smoking status: Never smoker Alcohol intake: never Substance use: never Lack of Transportation: No Lack of Food: Never True Current Housing: I Have Housing Concerned About Future Housing: No Difficulty Paying Gas/Electric Bills: No Difficulty Paying for Meds: No Currently Unemployed: No Education: High School Diploma/GED Difficulty w/ Childcare or Family Care: No Spiritual care concerns: No Exam Const: General: healthy appearing Nutritional Appearance: well nourished Orientation/consciousness: patient oriented x3 Limitations: no limitations HENMT: Head: normal to inspection Other: Frontal maxillary sinus tenderness with palpation with bilateral ear pressure and fullness Eyes: Conjunctivae: conjunctivae normal Neck: Neck: normal visual inspection, no lymphadenopathy and no meningeal signs Chest: Chest palpation & inspection: normal inspection of the chest Resp: Effort & Inspection: normal respiratory effort Auscultation: clear to auscultation bilaterally GI: GI Palp: Yes Soft to palpation Auscultation: normal bowel sounds Skin: General skin exam: normal color Rashes: no rashes Wounds: no wounds Course Course Emergency Course: patient with some sinusitis and will administer a dose of p.o. Zithromax. Vital Signs Vital signs: Vital Signs Temperature 36.5 C 12/28/23 16:09 Pulse Rate 92 12/28/23 16:09 Respiratory Rate 18 12/28/23 16:09 Blood Pressure 124/88 12/28/23 16:09 Pulse Oximetry 99 12/28/23 16:09 Oxygen Delivery Room Air 12/28/23 16:09 Temperature 36.5 C 12/28/23 16:09 Pulse Rate 92 12/28/23 16:09 Respiratory Rate 18 12/28/23 16:09 Blood Pressure 124/88 12/28/23 16:09 Pulse Oximetry 99 12/28/23 16:09 Oxygen Delivery Room Air 12/28/23 16:09 Critical Care Time Critical Care Time Critical Care Time: No Discharge Plan Discharge Clinical Impression: Sinusitis Patient Disposition: Home, Self-Care Condition: Stable Instructions: Antibiotic Form, Sinusitis (ED) Additional Instructions: take medication as prescribed. And can take Claritin [id number] daily x1 week. Follow up primary if symptoms persist or worsen. Prescriptions: New azithromycin [Zithromax Z-Harsha] 250 mg tablet See Rx Instructions .ROUTE .COMPLEX Qty: 6 0RF Rx Instructions: For 250 mg dose pack: take 500 mg today (day 1), then 250 mg for 4 days (days 2-5) fluticasone propionate [Flonase Allergy Relief] 50 mcg/actuation spray,suspension 2 spray intranasal DAILY Qty: 16 0RF Rx Instructions: administer into each nostril No Action albuterol sulfate [Ventolin HFA] 90 mcg/actuation HFA aerosol inhaler 2 puff inhalation QID Qty: 8.5 0RF Follow-up/Referrals: UNKNOWN,DOCTOR [Primary Care Provider] - Time of Disposition: 16:32
[2023-12-28] MEDS: AZITHROMYCIN 250 MG TABLET 500 MG PO (16:36)
[2023-12-28 16:55] VITALS: BP 124/88; PULSE 92; RESP 18; TEMP 36.5; O2SAT 99
== END 2023-12-28 16:55 | disposition home or self-care (01) ==
LOC: CHSED 16:37
PROVIDERS: Emergency Provider Emergency Medicine
DX: J32.9 Chronic sinusitis, unspecified (principal)
CPT/HCPCS: 99283; A9270

== ENCOUNTER 2024-04-09 22:39 | Emergency (ER) | payer OTHER, SELFPAY ==
--- NOTE | ~2024-04-09 | XR_ITS ---
EXAM: XR foot RT min 3V DATE: 04/09/2024 22:56 HISTORY: ALL OVER FOOT PAIN AFTER STEPPING IN A HOLE . COMPARISON: None available. FINDINGS: Normal mineralization. No fracture or dislocation. No lytic or blastic lesion. Joint space s are maintained. Achilles and plantar enthesopathy. No erosion or periosteal change. Soft tissues wi thin normal limits. IMPRESSION: No acute osseous finding in the right foot. Reviewed, dictated and finalized at location K. ERN FILER
--- OUTSIDE RECORDS SUMMARY | 2024-04-09 22:42 | XMS_ITS | Clinical Summary ---
Author Organization [facility] Address [address] [place] [address] Phone Care Team Providers Care Sales Executive Name Role Phone Unavailable Primary Care Provider Unavailabl e Social History Tobacco Use Types Packs/Day Years Used Date Smoking Tobacco: Never Assessed Comments Unknown Sex and Gender Information Value Date Recorded Sex Assigned at Not on file Legal Sex Female 11:12 AM CDT Gender Identity Not on file Sexual Orientation Not on file Plan of Treatment Health Maintenance Due Date Last Done Comments DTAP/TDAP/TD VACCINES (1 - Tdap) 05/10/2011 HEPATITIS B VACCINES (1 of 3 - 19+ 3-dose series) 05/10/2011 CERVICAL CANCER SCREENING 2022 INFLUENZA VACCINE (#1) 2023 HPV VACCINES Aged Out No longer eligi ble based on patient's age to complete this topic PNEUMOCOCCAL VACCINE 0-64 YEARS Aged Out No longer eligible based on patient's age to complete this topic Insurance [facility] [employer]ICA[employer]
--- OUTSIDE RECORDS SUMMARY | 2024-04-09 22:42 | XMS_ITS | Clinical Summary ---
Author Organization [facility] Address [facility] [place] [address] Care Team Providers Care Academic Affairs Assistant Name Role Phone None, Provider MD Primary Care Provider Unavaila ble Allergies Active Allergy Reactions Criticality Noted Date Comments General Anesthesia Rash Low 01/10/2022 Pt doesn't not know which anesthesia she is allergic to Morphine Nausea and Vomiting Medium 01/10/2022 And rash Medications albuterol sulfate HFA 108 (90 Base) MCG/ACT inhaler Inhale 2 puffs into the lungs every 6 (six) hours as needed for Wheezing. Active ondansetron (ZOFRAN) 4 MG tablet Take 1 tablet (4 mg total) by mouth every 8 (eight) hours as needed for Nausea. 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 Gender Identity Not on file Sexual Orientation Not on file Last Filed Vital Signs Vital Sign Reading Time Taken Comments Blood Pressure 123/75 06/23/2023 12:06 AM CDT Pulse 114 06/22/2023 11:18 PM CDT Temperature 37.2 C (98.9 F) 06/23/2023 12:08 AM CDT Respiratory Rate 16 06/22/2023 11:18 PM CDT Oxygen Saturation 96% 06/23/2023 12:06 AM CDT Inhaled Oxygen Concentration - - Weight 133.8 kg (295 lb) 06/22/2023 11:18 PM CDT Height 161.3 cm (5' 3.5 ) 06/22/2023 11:18 PM CD T Body Mass Index 51.44 06/22/2023 11:18 PM CDT Plan of Treatment Health Maintenance Due Date Last Done Comments Cervical Cancer Screening Pa p Smear (Age 30 to 64) Every 3 Years 1992 Annual Physical 05/10/1995 Hepatitis C 2010 DTaP, Tdap and Td Vaccines ( 1 - Tdap) 05/10/2011 Hepatitis B Vaccines (1 of 3 - 19+ 3-dose series) 05/10/2011 Cervical Cancer Screening Pa p with HPV Testing (Age 30 to 64) Every 5 Years 2022 Cervical Cancer Screening with HPV 2022 COVID-19 Vaccine ( - 2023-2 5 season) 2023 Influenza Adult (#1) 2023 RSV Immunization or 60+ Years (1 - 1-dose 75+ series) 05/10/2067 HPV Vaccines Aged Out No longer eligi ble based on patient's age to complete this topic Meningococcal B Vaccine Aged Out No l onger eligible based on patient's age to complete this topic Meningococcal Vaccine Aged Out No wayne jaskaran eligible based on patient's age to complete this topic Pneumococcal Vaccine: Pediat rics (0 to 5 Years) and At-Risk Patients (6 to 64 Years) Aged Out No longer eligible b ased on patient's age to complete this topic RSV Immunizations Under 20 Months Aged Out No longer eligible based on patient's age to complete this topic Insurance [address] [place] [address] [place] [id number] Care Teams Academic Affairs Assistant Relationship Specialty Start Date End Date None, Provider, PCP - General UNKNOWN PHYSICIAN SPECIALTY 06/22/23
--- OUTSIDE RECORDS SUMMARY | 2024-04-09 22:42 | XMS_ITS | Encounter Summary ---
Author Organization [facility] Address [facility] [place] [address] Care Team Providers Care Bending Roll Operator Name Role Phone Abdirahman Cm MD Primary Care Provider [phone] None, Provider Primary Care Provider Unavaila ble Encounter Details Date Type Department Care Team (Late st Contact Info) Description 07/21/2018 Abstract [facility] CONVERSION [address] [place] [address] , Generic Conversion, Social History Tobacco Use Types Packs/Day Years Used Date Smoking Tobacco: Never Assessed Comments Unknown Sex and Gender Information Value Date Recorded Sex Assigned at Not on file 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
--- NOTE | 2024-04-09 23:21 | ED_ITS ---
HPI - Extremity Injury (Lower) General Chief Complaint: Extremity Injury, Lower Stated Complaint: L foot Injury Time Seen by Provider: 04/09/24 22:43 Source: patient Mode of arrival: ambulatory Limitations: no limitations History of Present Illness HPI Narrative: patient is a 33-year-old female with right foot pain after stepping in a awkward position this evening. She has pain along the and tire right foot. M ore so on the plantar surface. complaint: foot injury ( Right) Onset (ago): hour(s) ( 2) Injury: Right: foot Type of Injury: unknown Place: home and street/outdoors Severity: moderate Severity scale (1-10): 4 Relieving factors: immobilization and rest Exacerbating factors: weight bearing, movement and palpation Context: walking Associated symptoms: snap/pop sensation and able to partially bear weight Other symptoms: none Treatments prior to arrival: other ( none) Related Data Allergies Allergy/AdvReac Type Severity Reaction Status Date / Time Bleach (Sodium Hypochlorite) Allergy Unknown Difficulty Verified 04/09/24 22:45 Breathing morphine AdvReac Unknown PANIC Verified 04/09/24 22:45 ATTACK Opioids - Morphine Analogues AdvReac PANIC Verified 04/09/24 22:45 ATTACK Review of Systems Review of Systems: All systems reviewed & are unremarkable except as noted in HPI and below Constitutional: Constitutional: Reports no additional constitutional complaints Eyes: Eyes: Reports no additional eye complaints ENT: Reports system reviewed and no additional complaints, except as documented Cardiovascular: Cardiovascular: Reports no additional cardiovascular complaints Respiratory: Respiratory: Reports no additional respiratory complaints Gastrointestinal: Gastrointestinal: Reports no additional gastrointestinal complaints Genitourinary: Genitourinary: Reports no additional female genitourinary complaints Musculoskeletal: Musculoskeletal: Reports no additional musculoskeletal complaints Integumentary/Breasts: Skin/Breast: Reports system reviewed and no additional complaints, except as docu Neurologic: Reports system reviewed and no additional complaints, except as documented Psychiatric: Psychiatric: Reports no additional psychiatric complaints Endocrine: Endocrine: Reports no additional endocrine complaints Hematologic/Lymphatic: Hematologic/Lymphatic: Reports no additional hematologic/lymphatic complaints Allergic/Immunologic: Allergic/Immunologic: Reports no additional allergic/immunologic complaints PMFSH Past Medical History Medical History Gestational diabetes Body mass index [BMI] 45.0-49.9, adult (11/29/18) Morbid obesity with BMI of 40.0-44.9, adult Asthma Preoperative exam for gynecologic surgery CHASTITY II (cervical intraepithelial neoplasia II) Cervical high risk HPV (human papillomavirus) test positive 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 Surgical History Surgical History H/O LEEP H/O section x2 History of appendectomy Family History Family History Mother Diabetes mellitus Sibling Hypertension Grandparent Cerebrovascular accident Father Family history of throat cancer Social History Social History Smoking status: Never smoker Alcohol intake: never Substance use: never Lack of Transportation: No Lack of Food: Never True Current Housing: I Have Housing Concerned About Future Housing: No Difficulty Paying Gas/Electric Bills: No Difficulty Paying for Meds: No Currently Unemployed: No Education: High School Diploma/GED Difficulty w/ Childcare or Family Care: No Spiritual care concerns: No Exam Const: General: healthy appearing Nutritional Appearance: well nourished Orientation/consciousness: patient oriented x3 Limitations: no limitations HENMT: Head: normal to inspection Ears: external ears normal Face/Nose/Sinus: Normal external nose present Eyes: Conjunctivae: conjunctivae normal Pupils: Equal, round and reactive pupils present EOM: EOMs intact bilaterally Neck: Neck: normal visual inspection Chest: Chest palpation & inspection: normal inspection of the chest Resp: Effort & Inspection: normal respiratory effort and not labored Auscultation: clear to auscultation bilaterally and no crackles Cardio: Rate: regular rate Rhythm: regular rhythm Heart sounds: no murmurs GI: Inspection: non-distended GI Palp: Yes Soft to palpation and No Tenderness to palpation present (GI) Auscultation: normal bowel sounds : General: Yes bladder normal to palpation Back/Spine/Pelvis: Back: no CVA tenderness Skin: General skin exam: normal color Rashes: no rashes Wounds: no wounds Neuro: General: patient oriented x3 Cranial nerves: Yes Nystagmus not present Speech: normal speech Gait exam (Neuro): Normal gait present Extrem: General: normal to inspection Other: tender right foot plantar surface midfoot mostly but extends from heel to toes Psych: Mental Status: mental status grossly normal Affect: normal affect Attitude: cooperative MDM - Extremity Injury (Lower) MDM Narrative Medical decision making narrative: patient is a 33-year-old female with of right foot pain after stepping awkwardly at home in the yd. We will do an x-ray. Pain control. José wrap. Imaging Data Attestation: I personally reviewed and interpreted this imaging study as follows: Radiologist's impression: X-ray right foot was negative for acute process Discharge Plan Discharge Clinical Impression: Foot sprain Qualifiers: Encounter type: initial encounter Laterality: right Qualified Code(s): S93.601A - Unspecified sprain of right foot, initial encounter Patient Disposition: Home, Self-Care Condition: Stable Instructions: Foot Sprain (ED) Patient Language: Tamazight Prescriptions: No Action azithromycin [Zithromax Z-Harsha] 250 mg tablet See Rx Instructions .ROUTE .COMPLEX Qty: 6 0RF Rx Instructions: For 250 mg dose pack: take 500 mg today (day 1), then 250 mg for 4 days (days 2-5) fluticasone propionate [Flonase Allergy Relief] 50 mcg/actuation spray,suspension 2 spray intranasal DAILY Qty: 16 0RF Rx Instructions: administer into each nostril albuterol sulfate [Ventolin HFA] 90 mcg/actuation HFA aerosol inhaler 2 puff inhalation QID Qty: 8.5 0RF Follow-up/Referrals: UNKNOWN,DOCTOR [Primary Care Provider] - Time of Disposition: 23:39
[2024-04-09 23:23] VITALS: BP 144/102; PULSE 94; RESP 20; TEMP 36.4; O2SAT 99
[2024-04-09] MEDS: KETOROLAC (*BKC) 60 MG/2 ML VIAL IM (23:38)
[2024-04-09 23:54] VITALS: BP 139/84; PULSE 70; RESP 20; O2SAT 99
== END 2024-04-09 23:54 | disposition home or self-care (01) ==
PROVIDERS: Emergency Provider Emergency Medicine
DX: S93.601A Unspecified sprain of right foot, initial encounter (principal); X50.0XXA Overexertion from strenuous movement or load, initial encounter
CPT/HCPCS: 73630; 96372; 99283; J1885

== ENCOUNTER 2024-04-20 22:05 | Emergency (ER) | payer OTHER, SELFPAY ==
[2024-04-20 22:05] VITALS: BP 128/81; PULSE 106; RESP 18; TEMP 36.6; O2SAT 96
--- OUTSIDE RECORDS SUMMARY | 2024-04-20 22:07 | XMS_ITS | Clinical Summary ---
Author Organization [facility] Address [address] [place] [address] Phone Care Team Providers Care Director Environmental Name Role Phone Unavailable Primary Care Provider [...] patient's age to complete this topic Insurance [facility] MEDICAID
--- OUTSIDE RECORDS SUMMARY | 2024-04-20 22:07 | XMS_ITS | Clinical Summary ---
Author Organization [facility] Address Formerly [facility], later [facility] [place] [address] Care Team Providers Care Records Management Coordinator Name Role Phone None, Provider MD Primary [...] (six) hours as needed for Wheezing. Active metFORMIN ER (GLUCOPHAGE-XR ) 500 MG 24 hr tablet Take 1 tablet each morning for 7 days; Then take 1 tablet each morning and 1 tablet each evening for 7 days; Then take 2 tablets each morning and 1 tablet each evening for 7 days; Then continue 2 tablets twice daily thereafter 120 tablet 04/15/19 25 Active ondansetron (ZOFRAN) 4 MG tablet Take 1 tablet (4 mg total) by mouth every 8 (eight) hours as needed for Nausea. 8 tablet 06/23/19 24 025 Discontinued Active Problems No known active problems Encounters Date Type Department Care Team Description 04/14/2024 3:25 PM MACHINE CUTTER - 04/14/2024 7:38 PM [facility] [[email or web address] Emergency [facility] [place] [address] Gena Ness, Hyperglycemia; Dizziness Discharge Disposition: Home or Self Care (Routine Discharge) 04/14/2024 Travel from Last 3 Months Family History Medical History Relation Comments Cancer Father Diabetes Mother Relation Status Comments Father Mother Alive Social History Tobacco Use Types Packs/Day Years Used Date Smoking Tobacco: Never Smokeless Tobacco: Never Tobacco Cessation:Counseling Given: Not Answered Alcohol Use Standard Drinks/Week Comments Never 0 (1 standard drink = 0.6 oz pur e alcohol) Comments No Sex and Gender Information Value Date Recorded Sex Assigned at Female 04/14/2024 3:39 PM MACHINE CUTTER Legal Sex Female 5:46 PM MACHINE CUTTER Gender Identity Not on file Sexual Orientation Not on file Last Filed Vital Signs Vital Sign Reading Time Taken Comments Blood Pressure 111/74 04/14/2024 7:30 PM MACHINE CUTTER Pulse 92 04/14/2024 7:30 PM MACHINE CUTTER Temperature 36.1 C (97 F) 04/14/2024 3:35 PM MACHINE CUTTER Respiratory Rate 27 04/14/2024 7:30 PM MACHINE CUTTER Oxygen Saturation 100% 04/14/2024 7:15 PM MACHINE CUTTER Inhaled Oxygen Concentration - - Weight 128.4 kg (283 lb) 04/14/2024 3:35 PM MACHINE CUTTER Height 161.3 cm (5' 3.5 ) 04/14/2024 3:35 PM MACHINE CUTTER Body Mass Index 49.34 04/14/2024 3:35 PM MACHINE CUTTER Plan of Treatment Health Maintenance Due Date Last Done Comments Cervical Cancer Screening Pa p Smear (Age 30 to 64) Every 3 Years 1992 Kidney Health Evaluation 1992 Hemoglobin A1C 1992 Lipid Panel 1992 Annual Physical 05/10/1995 Pneumococcal Vaccine: Pediat rics (0 to 5 Years) and At-Risk Patients (6 to 64 Years) (1 of 2 - PCV) 1998 Diabetes: Retinopathy Eye Exam 2010 Hepatitis C 2010 DTaP, Tdap and Td Vaccines ( 1 - Tdap) 05/10/2011 Hepatitis B Vaccines (1 of 3 - 19+ 3-dose series) 05/10/2011 Cervical Cancer Screening Pa p with HPV Testing (Age 30 to 64) Every 5 Years 2022 Cervical Cancer Screening with HPV 2022 COVID-19 Vaccine ( - 2023-2 5 season) 2023 Influenza Adult (#1) 2023 HPV Vaccines Aged Out No longer eligi [...] on patient's age to complete this topic Procedures Procedure Name Priority Date/Time Associated Diagnosis Comments POCT GLUCOSE - PHILIP DOCKED DEVICE Routine 04/14/2024 6:31 PM MACHINE CUTTER LACTIC ACID STAT 04/14/2024 4:55 PM MACHINE CUTTER COMPREHENSIVE METABOLIC PANEL STAT 04/14/2024 4:55 PM MACHINE CUTTER CBC W/DIFF AUTOMATED STAT 04/14/2024 4:55 PM MACHINE CUTTER BLOOD GAS, VENOUS STAT 04/14/2024 4:5 5 PM MACHINE CUTTER BETA-HYDROXYBUTYRATE STAT 04/14/2024 4:55 PM MACHINE CUTTER HC URINALYSIS AUTO W/MICRO STAT 04/14/2024 4:50 PM MACHINE CUTTER ECG 12-LEAD Routine 04/14/2024 3:45 PM MACHINE CUTTER POCT GLUCOSE - PHILIP DOCKED DEVICE Routine 04/14/2024 3:42 PM MACHINE CUTTER from Last 3 Months Results * (ABNORMAL) POCT glucose (04/14/2024 6:31 PM MACHINE CUTTER) Only the most recent of2 resultswithin the time period is included. GLUCOSE POC 262(H) 70 - 99 MG/DL 04/14/2024 6:32 PM MACHINE CUTTER [facility] Comment:Notify Doctor 04/14/2024 6:31 PM MACHINE CUTTER us Gena Ness DO POCT ORDERABLES - DEVICE Final R esult [facility] [address] [place] [address], * BETA-HYDROXYBUTYRATE (04/14/2024 4:55 PM MACHINE CUTTER) BETA-HYDROXYBUT YRATE 0.2 0.0 - 0.3 MMOL/L 04/14/2024 5:02 PM MACHINE CUTTER [facility] 04/14/2024 4:55 PM MACHINE CUTTER us Gena Ness DO LABORATORY Final Result [facility] [address] [place] [id number], * (ABNORMAL) Blood gas, venous (04/14/2024 4:55 PM MACHINE CUTTER) PH VENOUS 7.38 7.32 - 7.43 04/14/2024 5:02 PM [facility] PCO2 VENOUS 49.0 MMHG 04/14/2024 5:02 PM [facility] Comment:NO REFERENCE RANGE H BEEN ESTABLISHED PO2 VENOUS 32.0 MM HG 04/14/2024 5:02 PM [facility] Comment:NO REFERENCE RANGE H BEEN ESTABLISHED TOTAL CO2 VENOUS 30.5(H) 22.0 - 26.0 MMOL/L 04/14/2024 5:02 PM [facility] BASE EXCESS VENOUS 3.0 MMOL/L 04/14/2024 5:02 PM [facility] Comment:NO REFERENCE RANGE H BEEN ESTABLISHED O2 SAT VENOUS 60 % 04/14/2024 5:02 PM [facility] Comment:NO REFERENCE RANGE H BEEN ESTABLISHED BICARB VENOUS 29.0 22.0 - 29.0 MMOL/L 04/14/2024 5:02 PM [facility] O2 ADMIN VENOUS ROOM AIR 4:55 PM [facility] 04/14/2024 4:55 PM MACHINE CUTTER us Gena Ness DO LABORATORY Final Result [facility] [address] [place] [id number], * (ABNORMAL) COMPREHENSIVE METABOLIC PANEL (04/14/2024 4:55 PM MACHINE CUTTER) [facility] SODIUM S/P/B 136 136 - 145 MMOL/L 04/14/2024 5:16 PM [facility] POTASSIUM S/P/B 3.9 3.5 - 5.1 MMOL/L 04/14/2024 5:16 PM [facility] CHLORIDE S/P/B 99 98 - 107 MMOL/L 04/14/2024 5:16 PM [facility] CO2 29.3 21.0 - 32.0 MMOL/L 04/14/2024 5:16 PM [facility] GLUCOSE 341(H) 70 - 99 MG/DL 04/14/2024 5:16 PM [facility] Comment: FASTING GLUCOSE 100 TO 125 MG/DL IS CONSISTENT WITH IMPAIRED FASTING GLUCOSE. FASTING GLUCOSE >125 MG/DL IS CONSISTENT WITH DIABETES. RANDOM GLUCOSE >200 MG/DL WITH HYPERGLYCEMIC SYMPTOMS IS CONSISTENT WITH DIABETES. PER ADA GUIDELINES BUN 7 6 - 24 MG/DL 04/14/2024 5:16 PM [facility] CREATININE S/P/B 0.87 0.55 - 1.02 MG/DL 04/14/2024 5:16 PM [facility] CALCIUM S/P/B 8.5 8.4 - 10.5 MG/DL 04/14/2024 5:16 PM [facility] BILIRUBIN TOTAL S/P/B 0.3 0.2 - 1.0 MG/DL 04/14/2024 5:16 PM [facility] Comment: THIS ASSAY IS NOT RECOMMENDED FOR PATIENTS UNDERGOING TREATMENT WITH ELTROMBOPAG DUE TO THE POTENTIAL FOR FALSELY ELEVATED RESULTS. ALKALINE PHOSPHATASE S/P/B 143(H) 37 - 98 U/L 04/14/2024 5:16 PM [facility] AST 26 15 - 37 U/L 04/14/2024 5:16 PM [facility] ALT 39 14 - 59 U/L 04/14/2024 5:16 PM MACHINE CUTTER [facility] TOTAL PROTEIN S/P/B 7.8 6.4 - 8.2 G/DL 04/14/2024 5:16 PM MACHINE CUTTER [facility] ALBUMIN S/P/B 3.3(L) 3.4 - 5.0 G/DL 04/14/2024 5:16 PM MACHINE CUTTER [facility] ANION GAP 7.7 5.0 - 15.0 MMOL/L 04/14/2024 5:16 PM MACHINE CUTTER [facility] OSMOLALITY (CALC) 293 MOSM/KG 025 5:16 PM MACHINE CUTTER [facility] Comment:REFERENCE RANGE NOT ESTABLISHED GFR ESTIMATE >90 >89 ML/MIN/1. 73 M2 04/14/2024 5:16 PM [facility] GFR NOTES GFR REFERENCE S: 04/14/2024 5:16 PM MACHINE CUTTER [facility] Comment: THE ESTIMATED GFR IS CALCULATED USING THE 2020 CKD-EPI EQUATION. THE FOLLOWING CATEGORIES FOR GRADING RENAL FUNCTION ARE RECOMMENDED BY THE INTERNATIONAL SOCIETY OF NEPHROLOGY (KDIGO 2012 CLINICAL PRACTICE GUIDELINE). G1,NORMAL OR HIGH: >89 ml/min/1.73 m2 G2,MILDLY DECREASED: 60-89 ml/min/1.73 m2 G3A,MILDLY TO MODERATELY DECREASED: 45-59 ml/min/1.73 m2 G3B,MODERATELY TO SEVERELY DECREASED: 30-44 ml/min/1.73 m2 G4,SEVERELY DECREASED: 15-29 ml/min/1.73 m2 G5,KIDNEY FAILURE: <15 ml/min/1.73 m2 04/14/2024 4:55 PM MACHINE CUTTER us Gena Ness DO LABORATORY Final Result [facility] [address] [place] [address], * LACTIC ACID (04/14/2024 4:55 PM MACHINE CUTTER) LACTIC ACID VENOUS 2.0 0.4 - 2.0 MMOL/L 04/14/2024 5:19 PM MACHINE CUTTER [facility] 04/14/2024 4:55 PM MACHINE CUTTER Gena Ness DO LABORATORY Final Result [facility] [address] [place] [address], * (ABNORMAL) CBC W/DIFF AUTOMATED (04/14/2024 4:55 PM MACHINE CUTTER) WBC 6.12 4.00 - 10.80 x10'3/uL 04/14/2024 5:06 PM MACHINE CUTTER [facility] RBC 5.15 4.10 - 5.40 x10'6/uL 04/14/2024 5:06 PM [facility] HGB 13.6 12.0 - 16.0 G/DL 04/14/2024 5:06 PM [facility] HCT 42.7 36.0 - 47.0 % 04/14/2024 5:06 PM [facility] MCV 82.9 78.0 - 100.0 FL 04/14/2024 5:06 PM [facility] MCH 26.4(L) 27.0 - 31.0 PG 04/14/2024 5:06 PM [facility] MCHC 31.9(L) 33.0 - 36.0 G/DL 04/14/2024 5:06 PM [facility] RDW 15.1(H) 11.5 - 14.5 % 04/14/2024 5:06 PM [facility] PLT 183 150 - 350 x10'3/uL 04/14/2024 5:06 PM [facility] MPV 13.8(H) 7.4 - 10.4 FL 04/14/2024 5:06 PM [facility] CBC COMMENT NORMAL REFERENCE RANGE NOT ESTABLISHED FOR THE PROPORTIONAL LEUKOCYTE DIFFERENTIAL. 04/14/2024 5:06 PM [facility] NEUTROPHILS % 61.3 % 04/14/2024 5:06 PM [facility] LYMPHOCYTES % 25.7 % 04/14/2024 5:06 PM MACHINE CUTTER [facility] MONOCYTES % 12.1 % 04/14/2024 5:06 PM MACHINE CUTTER [facility] EOSINOPHILS % 0.3 % 04/14/2024 5:06 PM MACHINE CUTTER [facility] BASOPHILS % 0.3 % 04/14/2024 5:06 PM MACHINE CUTTER [facility] IMMATURE GRANS % 0.3 % 04/15/19 5:06 PM MACHINE CUTTER [facility] NRBC % 0.0 % 04/14/2024 5:06 PM MACHINE CUTTER [facility] ABS. NEUTROPHILS 3.75 1.60 - 8.30 x10'3/uL 04/14/2024 5:06 PM MACHINE CUTTER [facility] ABS. LYMPHOCYTES 1.57 0.80 - 4.70 x10'3/uL 04/14/2024 5:06 PM MACHINE CUTTER [facility] ABS. MONOCYTES 0.74 0.00 - 1.50 x10'3/uL 04/14/2024 5:06 PM MACHINE CUTTER [facility] ABS. EOSINOPHILS 0.02 0.00 - 0.40 x10'3/uL 04/14/2024 5:06 PM MACHINE CUTTER [facility] ABS. BASOPHILS 0.02 0.00 - 0.20 x10'3/uL 04/14/2024 5:06 PM MACHINE CUTTER [facility] ABS. IMMATURE GRANULOCYTES 0.02 0.00 - 0.03 x10'3/uL 04/14/2024 5:06 PM MACHINE CUTTER [facility] ABS. NUCLEATED RBC'S 0.00 0.00 - 0.01 x10'3/uL 04/14/2024 5:06 PM MACHINE CUTTER [facility] 04/14/2024 4:55 PM MACHINE CUTTER us Gena Ness DO LABORATORY Final Result [facility] [address] [place] [address], * (ABNORMAL) URINALYSIS (04/14/2024 4:50 PM MACHINE CUTTER) COLOR (U) YELLOW 04/14/2024 5:09 PM [facility] TRANSPARENCY CLEAR 04/14/2024 5:09 PM [facility] SPECIFIC GRAVITY (U) 1.010 1.000 - 1.025 04/14/2024 5:09 PM [facility] U PH 5.5 5.0 - 8.0 04/14/2024 5:09 PM [facility] LEUKOCYTES (U) NEGATIVE NEGATIVE 04/14/2024 5:09 PM [facility] NITRITES NEGATIVE NEGATIVE 04/14/2024 5:09 PM [facility] PROTEIN RANDOM (U) TRACE(A) NEGATIVE 04/14/2024 5:09 PM [facility] GLUCOSE (U) 3+(A) NEGATIVE 04/14/2024 5:09 PM [facility] KETONES MG/DL (U) NEGATIVE NEGATIVE 04/14/2024 5:09 PM [facility] UROBILINOGEN 0.2 <1.0 EU/DL 04/14/2024 5:09 PM [facility] BILIRUBIN (U) NEGATIVE NEGATIVE 04/14/2024 5:09 PM [facility] BLOOD (U) 2+(A) NEGATIVE 04/14/2024 5:09 PM [facility] WBC/HPF 0-5 0 - 5 /HPF 04/14/2024 5:09 PM [facility] RBC/HPF 0-5 0 - 5 /HPF 04/14/2024 5:09 PM [facility] EPI/LPF RARE /LPF 04/14/2024 5:09 PM [facility] BACTERIA (U) 1+ /HPF 04/14/2024 5:09 PM [facility] URINE SPECIMEN OBTAINED BY CLEAN CATCH PROCEDURE / Unknown 04/14/2024 4:50 PM MACHINE CUTTER us Gena Ness [place] [address], * ECG 12 lead (04/14/2024 3:45 PM MACHINE CUTTER) 04/14/2024 3:45 PM MACHINE CUTTER Narrative [facility] - 04/15/2024 6:06 AM MACHINE CUTTER [address] [place] [address] Test Date: 2024-04-14 Pat Name: ISMA LIM Department: 3 Room: EXAM 303 Gender: Female Therapeutic Assistant: : 1990 Requested By: GENA NESS Order Number: [id number] Reading MD: Era Bentley Measurements Intervals [place] Rate: 98 P: 40 AR: 162 QRS: 22 QRSD: 81 T: 18 QT: 320 QTc: 409 Interpretive Statements SINUS RHYTHM MINIMAL Left Ventricular Hypertrophy INE CUTTER Procedure Note Era Bentley MD - 04/15/[address] [place] [address] Test Date: 2024-04-14 Pat Name: ISMA LIM Department: 3 Room: EXAM 303 Gender: Female Therapeutic Assistant: : 1990 Requested By: GENA NESS Order Number: [id number] Reading MD: Era Bentley Measurements Intervals [place] Rate: 98 P: 40 AR: 162 QRS: 22 QRSD: 81 T: 18 QT: 320 QTc: 409 Interpretive Statements SINUS RHYTHM MINIMAL Left Ventricular Hypertrophy INE CUTTER us Gena Ness DO ECG ORDERABLES Final Result [facility] from Last 3 Months Insurance [employer] Care Teams Records Management Coordinator Relationship Specialty Start Date End Date None, Provider, PCP - General UNKNOWN PHYSICIAN SPECIALTY 06/22/23
--- OUTSIDE RECORDS SUMMARY | 2024-04-20 22:07 | XMS_ITS | Encounter Summary ---
Author Organization [facility] Address [address] [place] [address] Care Team Providers Care Washer Carcass Name Role Phone Abdirahman Cm MD Primary Care Provider [phone] None, Provider Primary Care Provider Unavaila ble Encounter Details Date Type Department Care Team (Late st Contact Info) Description 07/21/2018 Abstract [facility] CONVERSION [address] [place] [address] , Generic ConversionMD Social History Tobacco Use Types Packs/Day Years Used Date Smoking Tobacco: Never Assessed Comments Unknown Sex and Gender Information Value Date Recorded Sex Assigned at Female 04/14/2024 3:39 PM MACHINE QUILT STUFFER Legal Sex Female 5:46 PM MACHINE QUILT STUFFER Gender Identity Not on file Sexual Orientation Not on file documented as of this encounter Plan of Treatment Not on file documented as of this encounter Visit Diagnoses Not on filedocumented in this encounter Care Teams Washer Carcass Relationship Specialty Start Date End Date Abdirahman Cm MD [address] [place] [id number] PCP - General INTERNAL MEDICINE 01/10/22 06/21/23 None, ProviderMD PCP - General UNKNOWN PHYSICIAN SPECIALTY 06/22/23 documented as of this encounter
[2024-04-20 22:15] LABS: Glucose Point of Care 247 mg/dl (65-105)
--- OUTSIDE RECORDS SUMMARY | 2024-04-20 22:27 | XMS_ITS | Clinical Summary ---
Author Organization [facility] Address [address] [place] [address] Phone Care Team Providers Care Paste Maker Name Role Phone Unavailable Primary Care Provider [...] patient's age to complete this topic Insurance [facility] MEDICAID
--- OUTSIDE RECORDS SUMMARY | 2024-04-20 22:27 | XMS_ITS | Clinical Summary ---
Author Organization [facility] Address [facility] [place] [address] Care Team Providers Care Digital Forensic Examiner Name Role Phone None, Provider MD Primary [...] Department Care Team Description 04/14/2024 3:25 PM OSTEOPATHIC MEDICINE TEACHER - 04/14/2024 7:38 PM [facility] Emergency [facility] [place] [address] Gena Ness, Hyperglycemia; Dizziness Discharge [...] Sex Assigned at Female 04/14/2024 3:39 PM OSTEOPATHIC MEDICINE TEACHER Legal Sex Female 5:46 PM OSTEOPATHIC MEDICINE TEACHER Gender Identity Not on file Sexual Orientation Not on file Last Filed Vital Signs Vital Sign Reading Time Taken Comments Blood Pressure 111/74 04/14/2024 7:30 PM OSTEOPATHIC MEDICINE TEACHER Pulse 92 04/14/2024 7:30 PM OSTEOPATHIC MEDICINE TEACHER Temperature 36.1 C (97 F) 04/14/2024 3:35 PM OSTEOPATHIC MEDICINE TEACHER Respiratory Rate 27 04/14/2024 7:30 PM OSTEOPATHIC MEDICINE TEACHER Oxygen Saturation 100% 04/14/2024 7:15 PM OSTEOPATHIC MEDICINE TEACHER Inhaled Oxygen Concentration - - Weight 128.4 kg (283 lb) 04/14/2024 3:35 PM OSTEOPATHIC MEDICINE TEACHER Height 161.3 cm (5' 3.5 ) 04/14/2024 3:35 PM OSTEOPATHIC MEDICINE TEACHER Body Mass Index 49.34 04/14/2024 3:35 PM OSTEOPATHIC MEDICINE TEACHER Plan of Treatment Health Maintenance Due Date [...] PHILIP DOCKED DEVICE Routine 04/14/2024 6:31 PM OSTEOPATHIC MEDICINE TEACHER LACTIC ACID STAT 04/14/2024 4:55 PM OSTEOPATHIC MEDICINE TEACHER COMPREHENSIVE METABOLIC PANEL STAT 04/14/2024 4:55 PM OSTEOPATHIC MEDICINE TEACHER CBC W/DIFF AUTOMATED STAT 04/14/2024 4:55 PM OSTEOPATHIC MEDICINE TEACHER BLOOD GAS, VENOUS STAT 04/14/2024 4:5 5 PM OSTEOPATHIC MEDICINE TEACHER BETA-HYDROXYBUTYRATE STAT 04/14/2024 4:55 PM OSTEOPATHIC MEDICINE TEACHER HC URINALYSIS AUTO W/MICRO STAT 04/14/2024 4:50 PM OSTEOPATHIC MEDICINE TEACHER ECG 12-LEAD Routine 04/14/2024 3:45 PM OSTEOPATHIC MEDICINE TEACHER POCT GLUCOSE - PHILIP DOCKED DEVICE Routine 04/14/2024 3:42 PM OSTEOPATHIC MEDICINE TEACHER from Last 3 Months Results * (ABNORMAL) POCT glucose (04/14/2024 6:31 PM OSTEOPATHIC MEDICINE TEACHER) Only the most recent of2 resultswithin the time period is included. GLUCOSE POC 262(H) 70 - 99 MG/DL 04/14/2024 6:32 PM OSTEOPATHIC MEDICINE TEACHER [facility] Comment:Notify Doctor 04/14/2024 6:31 PM OSTEOPATHIC MEDICINE TEACHER us Gena Ness DO POCT ORDERABLES - DEVICE Final R esult [facility] [address] [place] [address], * BETA-HYDROXYBUTYRATE (04/14/2024 4:55 PM OSTEOPATHIC MEDICINE TEACHER) BETA-HYDROXYBUT YRATE 0.2 0.0 - 0.3 MMOL/L 04/14/2024 5:02 PM OSTEOPATHIC MEDICINE TEACHER [facility] 04/14/2024 4:55 PM OSTEOPATHIC MEDICINE TEACHER us Gena Ness DO LABORATORY Final Result [facility] [address] [place] [id number], * (ABNORMAL) Blood gas, venous (04/14/2024 4:55 PM OSTEOPATHIC MEDICINE TEACHER) PH VENOUS 7.38 7.32 - 7.43 04/14/2024 5:02 PM [facility] PCO2 VENOUS 49.0 MMHG 04/14/2024 5:02 PM [facility] Comment:NO REFERENCE RANGE H BEEN ESTABLISHED PO2 VENOUS 32.0 MM HG 04/14/2024 5:02 PM [facility] Comment:NO REFERENCE RANGE H BEEN ESTABLISHED TOTAL CO2 VENOUS 30.5(H) 22.0 - 26.0 MMOL/L 04/14/2024 5:02 PM [facility] BASE EXCESS VENOUS 3.0 MMOL/L 04/14/2024 5:02 PM [facility] Comment:NO REFERENCE RANGE H BEEN ESTABLISHED O2 SAT VENOUS 60 % 04/14/2024 5:02 PM [facility] Comment:NO REFERENCE RANGE H BEEN ESTABLISHED BICARB VENOUS 29.0 22.0 - 29.0 MMOL/L 04/14/2024 5:02 PM [facility] O2 ADMIN VENOUS ROOM AIR 4:55 PM [facility] 04/14/2024 4:55 PM OSTEOPATHIC MEDICINE TEACHER us Gena Ness DO LABORATORY Final Result [facility] [address] [place] [id number], * (ABNORMAL) COMPREHENSIVE METABOLIC PANEL (04/14/2024 4:55 PM OSTEOPATHIC MEDICINE TEACHER) [facility] Signature SODIUM S/P/B 136 136 - 145 MMOL/L 04/14/2024 5:16 PM [facility] POTASSIUM S/P/B 3.9 3.5 - 5.1 MMOL/L 04/14/2024 5:16 PM [facility] CHLORIDE S/P/B 99 98 - 107 MMOL/L 04/14/2024 5:16 PM [facility] CO2 29.3 21.0 - 32.0 MMOL/L 04/14/2024 5:16 PM [facility] GLUCOSE 341(H) 70 - 99 MG/DL 04/14/2024 5:16 PM [facility] Comment: FASTING GLUCOSE 100 TO 125 MG/DL IS CONSISTENT WITH IMPAIRED FASTING GLUCOSE. FASTING GLUCOSE >125 MG/DL IS CONSISTENT WITH DIABETES. RANDOM GLUCOSE >200 MG/DL WITH HYPERGLYCEMIC SYMPTOMS IS CONSISTENT WITH DIABETES. PER ADA GUIDELINES BUN 7 6 - 24 MG/DL 04/14/2024 5:16 PM [facility] CREATININE S/P/B 0.87 0.55 - 1.02 MG/DL 04/14/2024 5:16 PM [facility] CALCIUM S/P/B 8.5 8.4 - 10.5 MG/DL 04/14/2024 5:16 PM [facility] BILIRUBIN TOTAL S/P/B 0.3 0.2 - 1.0 MG/DL 04/14/2024 5:16 PM [facility] Comment: THIS ASSAY IS NOT RECOMMENDED FOR PATIENTS UNDERGOING TREATMENT WITH ELTROMBOPAG DUE TO THE POTENTIAL FOR FALSELY ELEVATED RESULTS. ALKALINE PHOSPHATASE S/P/B 143(H) 37 - 98 U/L 04/14/2024 5:16 PM [facility] AST 26 15 - 37 U/L 04/14/2024 5:16 PM [facility] ALT 39 14 - 59 U/L 04/14/2024 5:16 PM OSTEOPATHIC MEDICINE TEACHER [facility] TOTAL PROTEIN S/P/B 7.8 6.4 - 8.2 G/DL 04/14/2024 5:16 PM OSTEOPATHIC MEDICINE TEACHER [facility] ALBUMIN S/P/B 3.3(L) 3.4 - 5.0 G/DL 04/14/2024 5:16 PM OSTEOPATHIC MEDICINE TEACHER [facility] ANION GAP 7.7 5.0 - 15.0 MMOL/L 04/14/2024 5:16 PM OSTEOPATHIC MEDICINE TEACHER [facility] OSMOLALITY (CALC) 293 MOSM/KG 025 5:16 PM OSTEOPATHIC MEDICINE TEACHER [facility] Comment:REFERENCE RANGE NOT ESTABLISHED GFR ESTIMATE >90 >89 ML/MIN/1. 73 M2 04/14/2024 5:16 PM [facility] GFR NOTES GFR REFERENCE S: 04/14/2024 5:16 PM OSTEOPATHIC MEDICINE TEACHER [facility] Comment: THE ESTIMATED GFR IS CALCULATED [...] FAILURE: <15 ml/min/1.73 m2 04/14/2024 4:55 PM OSTEOPATHIC MEDICINE TEACHER us Gena Ness DO LABORATORY Final Result [facility] [address] [place] [address], * LACTIC ACID (04/14/2024 4:55 PM OSTEOPATHIC MEDICINE TEACHER) LACTIC ACID VENOUS 2.0 0.4 - 2.0 MMOL/L 04/14/2024 5:19 PM OSTEOPATHIC MEDICINE TEACHER [facility] 04/14/2024 4:55 PM OSTEOPATHIC MEDICINE TEACHER Gena Ness DO LABORATORY Final Result [facility] [address] [place] [address], * (ABNORMAL) CBC W/DIFF AUTOMATED (04/14/2024 4:55 PM OSTEOPATHIC MEDICINE TEACHER) WBC 6.12 4.00 - 10.80 x10'3/uL 04/14/2024 5:06 PM OSTEOPATHIC MEDICINE TEACHER [facility] RBC 5.15 4.10 - 5.40 x10'6/uL 04/14/2024 5:06 PM [facility] HGB 13.6 12.0 - 16.0 G/DL 04/14/2024 5:06 PM [facility] HCT 42.7 36.0 - 47.0 % 04/14/2024 5:06 PM [facility] MCV 82.9 78.0 - 100.0 FL 04/14/2024 5:06 PM [facility] MCH 26.4(L) 27.0 - 31.0 PG 04/14/2024 5:06 PM [facility] MCHC 31.9(L) 33.0 - 36.0 G/DL 04/14/2024 5:06 PM [facility] RDW 15.1(H) 11.5 - 14.5 % 04/14/2024 5:06 PM [facility] PLT 183 150 - 350 x10'3/uL 04/14/2024 5:06 PM [facility] MPV 13.8(H) 7.4 - 10.4 FL 04/14/2024 5:06 PM [facility] CBC COMMENT NORMAL REFERENCE RANGE NOT ESTABLISHED FOR THE PROPORTIONAL LEUKOCYTE DIFFERENTIAL. 04/14/2024 5:06 PM [facility] NEUTROPHILS % 61.3 % 04/14/2024 5:06 PM [facility] LYMPHOCYTES % 25.7 % 04/14/2024 5:06 PM OSTEOPATHIC MEDICINE TEACHER [facility] MONOCYTES % 12.1 % 04/14/2024 5:06 PM OSTEOPATHIC MEDICINE TEACHER [facility] EOSINOPHILS % 0.3 % 04/14/2024 5:06 PM OSTEOPATHIC MEDICINE TEACHER [facility] BASOPHILS % 0.3 % 04/14/2024 5:06 PM OSTEOPATHIC MEDICINE TEACHER [facility] IMMATURE GRANS % 0.3 % 04/15/19 5:06 PM OSTEOPATHIC MEDICINE TEACHER [facility] NRBC % 0.0 % 04/14/2024 5:06 PM OSTEOPATHIC MEDICINE TEACHER [facility] ABS. NEUTROPHILS 3.75 1.60 - 8.30 x10'3/uL 04/14/2024 5:06 PM OSTEOPATHIC MEDICINE TEACHER [facility] ABS. LYMPHOCYTES 1.57 0.80 - 4.70 x10'3/uL 04/14/2024 5:06 PM OSTEOPATHIC MEDICINE TEACHER [facility] ABS. MONOCYTES 0.74 0.00 - 1.50 x10'3/uL 04/14/2024 5:06 PM OSTEOPATHIC MEDICINE TEACHER [facility] ABS. EOSINOPHILS 0.02 0.00 - 0.40 x10'3/uL 04/14/2024 5:06 PM OSTEOPATHIC MEDICINE TEACHER [facility] ABS. BASOPHILS 0.02 0.00 - 0.20 x10'3/uL 04/14/2024 5:06 PM OSTEOPATHIC MEDICINE TEACHER [facility] ABS. IMMATURE GRANULOCYTES 0.02 0.00 - 0.03 x10'3/uL 04/14/2024 5:06 PM OSTEOPATHIC MEDICINE TEACHER [facility] ABS. NUCLEATED RBC'S 0.00 0.00 - 0.01 x10'3/uL 04/14/2024 5:06 PM OSTEOPATHIC MEDICINE TEACHER [facility] 04/14/2024 4:55 PM OSTEOPATHIC MEDICINE TEACHER us Gena Ness DO LABORATORY Final Result [facility] [address] [place] [address], * (ABNORMAL) URINALYSIS (04/14/2024 4:50 PM OSTEOPATHIC MEDICINE TEACHER) COLOR (U) YELLOW 04/14/2024 5:09 PM [facility] TRANSPARENCY CLEAR 04/14/2024 5:09 PM [facility] SPECIFIC GRAVITY (U) 1.010 1.000 - 1.025 04/14/2024 5:09 PM [facility] U PH 5.5 5.0 - 8.0 04/14/2024 5:09 PM [facility] LEUKOCYTES (U) NEGATIVE NEGATIVE 04/14/2024 5:09 PM [facility] NITRITES NEGATIVE NEGATIVE 04/14/2024 5:09 PM [facility] PROTEIN RANDOM (U) TRACE(A) NEGATIVE 04/14/2024 5:09 PM [facility] GLUCOSE (U) 3+(A) NEGATIVE 04/14/2024 5:09 PM [facility] KETONES MG/DL (U) NEGATIVE NEGATIVE 04/14/2024 5:09 PM [facility] UROBILINOGEN 0.2 <1.0 EU/DL 04/14/2024 5:09 PM [facility] BILIRUBIN (U) NEGATIVE NEGATIVE 04/14/2024 5:09 PM [facility] BLOOD (U) 2+(A) NEGATIVE 04/14/2024 5:09 PM [facility] WBC/HPF 0-5 0 - 5 /HPF 04/14/2024 5:09 PM [facility] RBC/HPF 0-5 0 - 5 /HPF 04/14/2024 5:09 PM [facility] EPI/LPF RARE /LPF 04/14/2024 5:09 PM [facility] BACTERIA (U) 1+ /HPF 04/14/2024 5:09 PM [facility] URINE SPECIMEN OBTAINED BY CLEAN CATCH PROCEDURE / Unknown 04/14/2024 4:50 PM OSTEOPATHIC MEDICINE TEACHER us Gena Ness DO [place] [address], * ECG 12 lead (04/14/2024 3:45 PM OSTEOPATHIC MEDICINE TEACHER) 04/14/2024 3:45 PM OSTEOPATHIC MEDICINE TEACHER Narrative [facility] - 04/15/2024 6:06 AM OSTEOPATHIC MEDICINE TEACHER [address] [place] [address] Test Date: 2024-04-14 Pat Name: ISMA LIM Department: 3 Room: EXAM 303 Gender: Female Bone Puller: : 1990 Requested By: GENA NESS Order Number: [id number] Reading MD: Era Bentley Measurements Intervals [place] Rate: 98 P: 40 LA: 162 QRS: 22 QRSD: 81 T: 18 QT: 320 QTc: 409 Interpretive Statements SINUS RHYTHM MINIMAL Left Ventricular Hypertrophy OPATHIC MEDICINE TEACHER Procedure Note Era Bentley MD - 04/15/[address] [place] [address] Test Date: 2024-04-14 Pat Name: ISMA LIM Department: 3 Room: EXAM 303 Gender: Female Bone Puller: : 1990 Requested By: GENA NESS Order Number: [id number] Reading MD: Era Bentley Measurements Intervals [place] Rate: 98 P: 40 LA: 162 QRS: 22 QRSD: 81 T: 18 QT: 320 QTc: 409 Interpretive Statements SINUS RHYTHM MINIMAL Left Ventricular Hypertrophy OPATHIC MEDICINE TEACHER us Gena Ness DO ECG ORDERABLES Final Result [facility] from Last 3 Months Insurance [employer] Care Teams Digital Forensic Examiner Relationship Specialty Start Date End Date None, Provider, PCP - General UNKNOWN PHYSICIAN SPECIALTY 06/22/23
--- OUTSIDE RECORDS SUMMARY | 2024-04-20 22:27 | XMS_ITS | Encounter Summary ---
Author Organization [facility] Address [address] [place] [address] Care Team Providers Care Kiln Furniture Saw Tender Name Role Phone Abdirahman Cm MD Primary Care Provider [phone] None, Provider Primary Care Provider Unavaila ble Encounter Details Date Type Department Care Team (Late st Contact Info) Description 07/21/2018 Abstract [facility] CONVERSION [address] [place] [address] , Generic ConversionMD Social History Tobacco Use Types Packs/Day Years Used Date Smoking Tobacco: Never Assessed Comments Unknown Sex and Gender Information Value Date Recorded Sex Assigned at Female 04/14/2024 3:39 PM CAR CARDER Legal Sex Female 5:46 PM CAR CARDER Gender Identity Not on file Sexual Orientation Not on file documented as of this encounter Plan of Treatment Not on file documented as of this encounter Visit Diagnoses Not on filedocumented in this encounter Care Teams Kiln Furniture Saw Tender Relationship Specialty Start Date End Date Abdirahman Cm MD [address] [place] [id number] PCP - General INTERNAL MEDICINE 01/10/22 06/21/23 None, ProviderMD PCP - General UNKNOWN PHYSICIAN SPECIALTY 06/22/23 documented as of this encounter
[2024-04-20] MEDS: ONDANSETRON INJ 4 MG/2 ML VIAL IV PUSH (22:41)
[2024-04-20] MEDS: SODIUM CHLORIDE 0.9% IV 1,000 ML 999 ML IV CONT (22:41)
[2024-04-20 22:59] LABS: Alanine Aminotransferase 32 U/L (14-59); Albumin Level 3.2 g/dL (3.4-5.0); Alkaline Phosphatase 136 U/L (46-116); Anion Gap 11 mmol/L (4-12); Aspartate Amino Transferase 30 U/L (15-37); Bilirubin,Total 0.7 mg/dL (0.00-1.00); Blood Urea Nitrogen 9 mg/dL (7-18); Calcium 8.4 mg/dL (8.5-10.1); Carbon Dioxide 25 mmol/L (21-32); Chloride 102 mmol/L (98-108); Estimated CRCL calculation 115 ml/min; Estimated Glomerular Filt Rate > 60; Glucose 233 mg/dL (70-99); Osmolality Calculated 291 mOsm/kg (285-295); Potassium 3.9 mmol/L (3.5-5.1); Sodium 138 mmol/L (136-145); Total Protein 7.6 g/dL (6.4-8.2)
[2024-04-20 23:05] LABS: Basophils Absolute Auto 0.01 K/mm3 (0.00-0.10); Basophils Percent Auto 0.1 % (0.0-1.0); Eosinophils Absolute Auto 0.09 K/mm3 (0.02-0.50); Eosinophils Percent Auto 1.1 % (1.0-6.0); Hemoglobin 12.7 g/dL (12.0-15.0); Immature Granulocyte Absolute 0.04 K/mm3 (0.00-0.00); Immature Granulocyte Percent A 0.5 % (0.0-0.0); Immature Platelet Fraction Pct 9.4 % (1.0-7.0); Lymphocytes Absolute Auto 1.08 K/mm3 (1.10-4.50); Lymphocytes Percent Auto 13.5 % (18.0-42.0); Mean Corpuscular Hemoglobin 25.7 pg (27.0-31.0); Mean Platelet Volume 12.9 fl (9.2-11.8); Monocytes Percent Auto 6.3 % (2.0-11.0); Neutrophils Absolute Auto 6.28 K/mm3 (1.70-7.20); Neutrophils Percent Auto 78.5 % (50.0-70.0); Platelet Count Result 198 K/mm3 (150-420); Red Blood Count 4.94 M/mm3 (4.20-5.40); Red Cell Distribution Width 14.6 % (11.6-14.4)
--- NOTE | 2024-04-20 23:23 | ED_ITS ---
HPI - Nausea/Vomiting/Diarrhea General Chief complaint: Nausea/Vomiting/Diarrhea Stated complaint: NAUSEA/VOMITING Time Seen by Provider: 04/20/24 22:20 Source: patient Mode of arrival: ambulatory Limitations: no limitations History of Present Illness HPI Narrative: this is a 33-year-old female with a history of diabetes with nausea vomiting and loose stools with no abdominal pain no fever chills no chest pain or shortness of breath. MD elicited complaint: nausea and vomiting Onset (ago): day(s) Related Data Home Medications ?Medication ?Instructions ?Recorded ?Confirmed ?Last Taken ?Type metformin 500 mg tablet,extended 500 mg PO 04/20/24 Unknown History release 24 hr Allergies Allergy/AdvReac Type Severity Reaction Status Date / Time Bleach (Sodium Hypochlorite) Allergy Unknown Difficulty Verified 04/20/24 22:53 Breathing morphine AdvReac Unknown PANIC Verified 04/20/24 22:53 ATTACK Opioids - Morphine Analogues AdvReac PANIC Verified 04/20/24 22:53 ATTACK Review of Systems 2 Review of Systems: All systems reviewed & are unremarkable except as noted in HPI and below PMFSH Past Medical History Medical History Gestational diabetes Body mass index [BMI] 45.0-49.9, adult (11/29/18) Morbid obesity with BMI of 40.0-44.9, adult Asthma Preoperative exam for gynecologic surgery CHASTITY II (cervical intraepithelial neoplasia II) Cervical high risk HPV (human papillomavirus) test positive 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 Surgical History Surgical History H/O LEEP H/O section x2 History of appendectomy Family History Family History Mother Diabetes mellitus Sibling Hypertension Grandparent Cerebrovascular accident Father Family history of throat cancer Social History Social History Smoking status: Never smoker Alcohol intake: never Substance use: never Lack of Transportation: No Lack of Food: Never True Current Housing: I Have Housing Concerned About Future Housing: No Difficulty Paying Gas/Electric Bills: No Difficulty Paying for Meds: No Currently Unemployed: No Education: High School Diploma/GED Difficulty w/ Childcare or Family Care: No Spiritual care concerns: No Exam 2 Const: General: no acute distress Nutritional Appearance: well nourished Orientation/consciousness: patient oriented x3 Limitations: no limitations HENMT: Head: normal to inspection Eyes: Conjunctivae: conjunctivae normal Neck: Neck: normal visual inspection Chest: Chest palpation & inspection: normal inspection of the chest Resp: Effort & Inspection: normal respiratory effort Auscultation: clear to auscultation bilaterally Cardio: Rate: regular rate Rhythm: regular rhythm GI: GI Palp: Yes Soft to palpation Auscultation: normal bowel sounds : General: Yes bladder normal to palpation Skin: General skin exam: normal color Neuro: General: patient oriented x3, moves all extremities and no meningeal signs Course Course Emergency Course: Patient received IV fluids and IV Zofran and and blood work reviewed with patient which shows no acute abnormalities. Vital Signs Vital signs: Vital Signs Temperature 36.6 C 04/20/24 22:05 Pulse Rate 106 H 04/20/24 22:05 Respiratory Rate 18 04/20/24 22:05 Blood Pressure 128/81 04/20/24 22:05 Pulse Oximetry 96 04/20/24 22:05 Oxygen Delivery Room Air 04/20/24 22:05 Temperature 36.6 C 04/20/24 22:05 Pulse Rate 106 H 04/20/24 22:05 Respiratory Rate 18 04/20/24 22:05 Blood Pressure 128/81 04/20/24 22:05 Pulse Oximetry 96 04/20/24 22:05 Oxygen Delivery Room Air 04/20/24 22:05 MDM - Nausea/Vomiting/Diarrhea Lab Data 04/20/24 22:58 04/20/24 22:20 Labs: Lab Results 04/20/24 04/20/24 04/20/24 Range/Units 22:12 22:20 22:58 WBC 8.0 (4.8-10.8) K/mm3 RBC 4.94 (4.20-5.40) M/mm3 Hgb 12.7 (12.0-15.0) g/dL Hct 41.0 (35.0-49.0) % MCV 83.0 (78.0-102.0) fL MCH 25.7 L (27.0-31.0) pg MCHC 31.0 L (32-36) g/dL RDW 14.6 H (11.6-14.4) % Plt Count 198 (150-420) K/mm3 MPV 12.9 H (9.2-11.8) fl Immature Gran % (Auto) 0.5 H (0.0-0.0) % Neut % (Auto) 78.5 H (50.0-70.0) % Lymph % (Auto) 13.5 L (18.0-42.0) % Dickens % (Auto) 6.3 (2.0-11.0) % Eos % (Auto) 1.1 (1.0-6.0) % Baso % (Auto) 0.1 (0.0-1.0) % Lymph # (Auto) 1.08 L (1.10-4.50) K/mm3 Dickens # (Auto) 0.50 (0.10-0.90) K/mm3 Eos # (Auto) 0.09 (0.02-0.50) K/mm3 Baso # (Auto) 0.01 (0.00-0.10) K/mm3 Abs Immat Gran (auto) 0.04 H (0.00-0.00) K/mm3 Absolute Neuts (auto) 6.28 (1.70-7.20) K/mm3 Absolute Nucleated RBC 0.00 (0.00-0.00) K/mm3 Nucleated RBC % 0.0 (0-0.0) % % Immature Plt Fraction 9.4 H (1.0-7.0) % Sodium 138 (136-145) mmol/L Potassium 3.9 (3.5-5.1) mmol/L Chloride 102 (98-108) mmol/L Carbon Dioxide 25 (21-32) mmol/L Anion Gap 11 (4-12) mmol/L BUN 9 (7-18) mg/dL Creatinine 0.79 (0.55-1.02) mg/dL Estim Creat Clear Calc 115 ml/min Estimated GFR > 60 (59 - ) Glucose 233 H (70-99) mg/dL POC Capillary Glucose 247 H (65-105) mg/dl Calculated Osmolality 291 (285-295) mOsm/kg Calcium 8.4 L (8.5-10.1) mg/dL Total Bilirubin 0.7 (0.00-1.00) mg/dL AST 30 (15-37) U/L ALT 32 (14-59) U/L Alkaline Phosphatase 136 H (46-116) U/L Total Protein 7.6 (6.4-8.2) g/dL Albumin 3.2 L (3.4-5.0) g/dL Critical Care Time Critical Care Time Critical Care Time: No Discharge Plan Discharge Clinical Impression: Gastroenteritis Patient Disposition: Home, Self-Care Condition: Stable Instructions: Antibiotic Form, Gastroenteritis (ED) Additional Instructions: advised to take medication as prescribed and follow-up with primary care physician within 1 week for further evaluation and treatment. Patient Language: Bhutanese Prescriptions: New ondansetron 4 mg tablet,disintegrating 4 mg PO Q6H PRN (Reason: nausea and vomiting) Qty: 14 0RF No Action fluticasone propionate [Flonase Allergy Relief] 50 mcg/actuation spray,suspension 2 spray intranasal DAILY Qty: 16 0RF Rx Instructions: administer into each nostril albuterol sulfate [Ventolin HFA] 90 mcg/actuation HFA aerosol inhaler 2 puff inhalation QID Qty: 8.5 0RF metformin 500 mg tablet extended release 24 hr 500 mg PO Follow-up/Referrals: UNKNOWN,DOCTOR [Primary Care Provider] - Time of Disposition: 23:27
[2024-04-20 23:46] VITALS: BP 126/78; PULSE 82; RESP 20; O2SAT 99
== END 2024-04-20 23:46 | disposition home or self-care (01) ==
PROVIDERS: Emergency Provider Emergency Medicine
DX: K52.9 Noninfective gastroenteritis and colitis, unspecified (principal); E11.9 Type 2 diabetes mellitus without complications
CPT/HCPCS: 36415; 80053; 82948; 85025; 85055; 96361; 96374; 99284; J2405; J7030

== ENCOUNTER 2024-07-09 16:55 | Emergency (ER) | payer OTHER, SELFPAY ==
--- NOTE | ~2024-07-09 | XR_ITS ---
HISTORY: Pulling down cat litter from top shelf, Limited ROM COMPARISON: None TECHNIQUE: 3 views of the right shoulder were performed FINDINGS: No acute fracture. The glenohumeral and acromioclavicular joint space is maintained The visualized portion of the adjacent right lung is clear. The humeral head is well seated within the glenoid fossa. IMPRESSION: No acute fracture or anterior dislocation. Reviewed, dictated and finalized at location A.
[2024-07-09 16:55] VITALS: BP 129/99; PULSE 76; RESP 16; TEMP 36.6; O2SAT 99
--- OUTSIDE RECORDS SUMMARY | 2024-07-09 17:02 | XMS_ITS | Clinical Summary ---
Author Organization [facility] Address [address] [place] [address] Phone Care Team Providers Care Wire Mesh Knitter Name Role Phone Unavailable Primary Care Provider [...] of 3 - 19+ 3-dose series) 05/10/2011 HPV/Cotest (21-29) 2013 CERVICAL CANCER SCREENING 2022 HPV/Cotest (30-65) 2022 PAP SMEAR 2022 INFLUENZA VACCINE (#1) 2023 HPV VACCINES Aged Out No longer eligi ble based on patient's age to complete this topic Insurance [facility] MEDICAID
--- NOTE | 2024-07-09 17:08 | ED_ITS ---
HPI - Extremity Injury (Upper) General Chief Complaint: Extremity Injury, Upper Stated Complaint: right shoulder injury Time Seen by Provider: 07/09/24 17:08 Source: patient Mode of arrival: ambulatory Limitations: no limitations Related Data Home Medications ?Medication ?Instructions ?Recorded ?Confirmed ?Last Taken ?Type metformin 500 mg tablet,extended 500 mg PO 04/20/24 Unknown History release 24 hr Allergies Allergy/AdvReac Type Severity Reaction Status Date / Time Bleach (Sodium Hypochlorite) Allergy Unknown Difficulty Verified 07/09/24 17:13 Breathing morphine AdvReac Unknown PANIC Verified 07/09/24 17:13 ATTACK Opioids - Morphine Analogues AdvReac PANIC Verified 07/09/24 17:13 ATTACK PMFSH Past Medical History Medical History Gestational diabetes Body mass index [BMI] 45.0-49.9, adult (11/29/18) Morbid obesity with BMI of 40.0-44.9, adult Asthma Preoperative exam for gynecologic surgery CHASTITY II (cervical intraepithelial neoplasia II) Cervical high risk HPV (human papillomavirus) test positive 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 Surgical History Surgical History H/O LEEP H/O section x2 History of appendectomy Family History Family History Mother Diabetes mellitus Sibling Hypertension Grandparent Cerebrovascular accident Father Family history of throat cancer Social History Social History Smoking status: Never smoker Alcohol intake: never Substance use: never Lack of Transportation: No Lack of Food: Never True Current Housing: I Have Housing Concerned About Future Housing: No Difficulty Paying Gas/Electric Bills: No Difficulty Paying for Meds: No Currently Unemployed: No Education: High School Diploma/GED Difficulty w/ Childcare or Family Care: No Spiritual care concerns: No Course Vital Signs Vital signs: Vital Signs Temperature 36.6 C 07/09/24 16:55 Pulse Rate 76 07/09/24 16:55 Respiratory Rate 16 07/09/24 16:55 Blood Pressure 129/99 H 07/09/24 16:55 Pulse Oximetry 99 07/09/24 16:55 Oxygen Delivery Room Air 07/09/24 16:55 Temperature 36.6 C 07/09/24 16:55 Pulse Rate 76 07/09/24 16:55 Respiratory Rate 16 07/09/24 16:55 Blood Pressure 129/99 H 07/09/24 16:55 Pulse Oximetry 99 07/09/24 16:55 Oxygen Delivery Room Air 07/09/24 16:55 MDM - Extremity Injury (Upper) Imaging Data Radiologist's impression: Impressions Shoulder X-Ray 07/09/24 17:59 IMPRESSION: No acute fracture or anterior dislocation. Critical Care Time Critical Care Time Critical Care Time: No Discharge Plan Discharge Clinical Impression: Acute pain of right shoulder Patient Disposition: Home Condition: Stable Instructions: Shoulder Sprain (ED) Additional Instructions: RETURN IF SYMPTOMS ARE WORSENING , CALL YOUR FAMILY PHYSICIAN FOR APPOINTMENT, TAKE TYLENOL NEEDED FOR ACHES AND PAIN, CONTINUE HOME MEDICATIONS. Patient Language: Macedonian Prescriptions: New naproxen [Naprosyn] 500 mg tablet 500 mg PO BID PRN (Reason: pain) Qty: 14 0RF cyclobenzaprine 10 mg tablet 10 mg PO TID PRN (Reason: muscle spasm) Qty: 20 0RF No Action albuterol sulfate [Ventolin HFA] 90 mcg/actuation HFA aerosol inhaler 2 puff inhalation QID Qty: 8.5 0RF metformin 500 mg tablet extended release 24 hr 500 mg PO Follow-up/Referrals: Adolfo Heath MD [Primary Care Provider] - Stand Alone Forms: Work/School Release IP
[2024-07-09] MEDS: IBUPROFEN 600 MG TABLET PO (17:18)
[2024-07-09] MEDS: ACETAMINOPHEN 325 MG TABLET 650 MG PO (17:18)
--- OUTSIDE RECORDS SUMMARY | 2024-07-09 17:32 | XMS_ITS | Clinical Summary ---
Author Organization [facility] Address [address] [place] [address] Phone Care Team Providers Care Mail Courier Name Role Phone Unavailable Primary Care Provider [...] patient's age to complete this topic Insurance [facility] PLAN MEDICAID
== END 2024-07-09 17:54 | disposition home or self-care (01) ==
LOC: CHSED 17:30
PROVIDERS: Emergency Provider Emergency Medicine; PCP Family Medicine
DX: M25.511 Pain in right shoulder (principal)
CPT/HCPCS: 73030; 99283; A9270

== ENCOUNTER 2024-08-16 23:59 | Emergency (ER) | payer OTHER, SELFPAY ==
[2024-08-16 23:59] VITALS: BP 139/94; PULSE 120; RESP 16; TEMP 36.4; O2SAT 98
[2024-08-17] VITALS (7 sets, daily range): BP systolic 95–141; BP diastolic 84–102; O2SAT 94–98
--- OUTSIDE RECORDS SUMMARY | 2024-08-17 | XMS_ITS | Clinical Summary ---
Author Organization [facility] Address [facility] [place] [address] Care Team Providers Care Hydrochloric Area Supervisor Name Role Phone None, Provider MD Primary [...] as needed for Wheezing. Active metFORMIN ER (GLUCOPHAGE-XR) 500 MG 24 hr tablet Take 1 tablet each morning for 7 days; Then take 1 tablet each morning and 1 tablet each evening for 7 days; Then take 2 tablets each morning and 1 tablet each evening for 7 days; Then continue 2 tablets twice daily thereafter 120 tablet Active Active Problems No known active problems Family History Medical History Relation Comments Cancer [...] Sex Assigned at Female 04/14/2024 3:[address] ASSISTANT Legal Sex Female 5:[address] ASSISTANT Gender Identity Not on file Sexual Orientation Not on file Last Filed Vital Signs Vital Sign Reading Time Taken Comments Blood Pressure 111/74 04/14/2024 7:[address] ASSISTANT Pulse 92 04/14/2024 7:[address] ASSISTANT Temperature 36.1 C (97 F) 04/14/2024 3:[address] ASSISTANT Respiratory Rate 04/14/2024 7:[address] ASSISTANT Oxygen Saturation 100% 04/14/2024 7:[address] ASSISTANT Inhaled Oxygen Concentration - - Weight 128.4 kg (283 lb) 04/14/2024 3:[address] ASSISTANT Height 161.3 cm (5' 3.5) 04/14/2024 3:[address] ASSISTANT Body Mass Index 49.34 04/14/2024 3:[address] ASSISTANT Plan of Treatment Health Maintenance Due Date Last Done Comments Cervical Cancer Screening Pa p Smear (Age 30 to 64) Every 3 Years 1992 Kidney Health Evaluation 1992 Hemoglobin A1C 1992 Lipid Panel 1992 Annual Physical 05/10/1995 Diabetes: Retinopathy Eye Exam 2010 Hepatitis C 2010 DTaP, Tdap and Td Vaccines ( 1 - Tdap) 05/10/2011 Hepatitis B Vaccines (1 of 3 - 19+ 3-dose series) 05/10/2011 Pneumococcal Vaccine: Pediat rics (0 to 5 Years) and At-Risk Patients (6 to 49 Years) (1 of 2 - PCV) 05/10/2011 Cervical Cancer Screening Pa p with HPV Testing (Age 30 to 64) Every 5 Years 2022 Cervical Cancer Screening with HPV 2022 COVID-19 Vaccine (1 - 2023-2 5 season) 2023 HPV Vaccines Aged Out No longer [...] age to complete this topic Insurance [address] [place] [address] Care Teams Hydrochloric Area Supervisor Relationship Specialty Start Date End Date None, Provider, PCP - General UNKNOWN PHYSICIAN SPECIALTY 06/22/23
--- OUTSIDE RECORDS SUMMARY | 2024-08-17 | XMS_ITS | Encounter Summary ---
Author Organization [facility] Address [facility] [place] [address] Care Team Providers Care Retirement Consultant Name Role Phone Abdirahman Cm MD Primary Care Provider [phone] None, Provider Primary Care Provider Unavaila ble Encounter Details Date Type Department Care Team (Late st Contact Info) Description 07/21/2018 Abstract SFL CONVERSION [address] [place] [address] , Generic ConversionMD Social History Tobacco Use Types Packs/Day Years Used Date Smoking Tobacco: Never Assessed Comments Unknown Sex and Gender Information Value Date Recorded Sex Assigned at Female 04/14/2024 3:39 PM SHAREPOINT ARCHITECT Legal Sex Female 5:46 PM SHAREPOINT ARCHITECT Gender Identity Not on file Sexual Orientation Not on file documented as of this encounter Plan of Treatment Not on file documented as of this encounter Visit Diagnoses Not on filedocumented in this encounter Care Teams Retirement Consultant Relationship Specialty Start Date End Date Abdirahman Cm MD [address] [place] [id number] PCP - General INTERNAL MEDICINE 01/10/22 06/21/23 None, ProviderMD PCP - General UNKNOWN PHYSICIAN SPECIALTY 06/22/23 documented as of this encounter
--- OUTSIDE RECORDS SUMMARY | 2024-08-17 | XMS_ITS | Clinical Summary ---
Author Organization [facility] Address [address] [place] [address] Phone Care Team Providers Care Railcar Brake Operator Name Role Phone Unavailable Primary Care Provider [...] 2022 PAP SMEAR 2022 INFLUENZA VACCINE (#1) 2024 HPV VACCINES Aged Out No longer eligi ble based on patient's age to complete this topic Insurance [facility] PLAN MEDICAID
--- NOTE | 2024-08-17 00:14 | ED_ITS ---
HPI - General Adult General Chief complaint: Headache Stated complaint: sick symptoms Time Seen by Provider: 08/17/24 00:11 History of Present Illness HPI narrative: Isma is a 34F with a PMH of asthma, obesity and diabetes (unclear if type 1 or 2) that presented to the ED with elevated sugars for a couple days. She has had increasing sugar, lightheadedness, polyuria and polydipsia. She has only been on metformin in the past. No CP, dyspnea or syncope. Related Data Home Medications ?Medication ?Instructions ?Recorded ?Confirmed ?Last Taken ?Type metformin 500 mg tablet,extended 500 mg PO 04/20/24 Unknown History release 24 hr Allergies Allergy/AdvReac Type Severity Reaction Status Date / Time Bleach (Sodium Hypochlorite) Allergy Unknown Difficulty Verified 08/17/24 01:25 Breathing morphine AdvReac Unknown PANIC Verified 08/17/24 01:25 ATTACK Opioids - Morphine Analogues AdvReac PANIC Verified 08/17/24 01:25 ATTACK Review of Systems 2 Review of Systems: All systems reviewed & are unremarkable except as noted in HPI and below PMFSH Past Medical History Medical History Gestational diabetes Body mass index [BMI] 45.0-49.9, adult (11/29/18) Morbid obesity with BMI of 40.0-44.9, adult Asthma Preoperative exam for gynecologic surgery CHASTITY II (cervical intraepithelial neoplasia II) Cervical high risk HPV (human papillomavirus) test positive 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 Surgical History Surgical History H/O LEEP H/O section x2 History of appendectomy Family History Family History Mother Diabetes mellitus Sibling Hypertension Grandparent Cerebrovascular accident Father Family history of throat cancer Social History Social History Smoking status: Never smoker Alcohol intake: never Substance use: never Lack of Transportation: No Lack of Food: Never True Current Housing: I Have Housing Concerned About Future Housing: No Difficulty Paying Gas/Electric Bills: No Difficulty Paying for Meds: No Currently Unemployed: No Education: High School Diploma/GED Difficulty w/ Childcare or Family Care: No Spiritual care concerns: No Exam 2 Const: General: cooperative, healthy appearing, comfortable, no acute distress, well developed, alert, awake and Physically active O rientation/consciousness: oriented to person, oriented to place and oriented to time HENMT: Head: normal to inspection, normocephalic and atraumatic Ears: h earing grossly normal bilaterally and external ears normal Face/Nose/Sinus: N ormal external nose present Eyes: General: appearance normal, both eyes and all related structures P eriorbital: periorbital findings normal Sclera: sclerae normal Pupils: E qual, round and reactive pupils present Neck: Neck: normal visual inspection Chest: Chest palpation & inspection: normal inspection of the chest Resp: Effort & Inspection: normal respiratory effort, able to speak in complete sentences and no respiratory distress Cardio: Jugular venous distension: no JVD Skin: General skin exam: normal color and no rashes or lesions noted Neuro: General: oriented to person, oriented to place and oriented to time Cranial nerves: Yes Equal, round and reactive pupils present Extrem: General: normal to inspection Course Course Emergency Course: ordered labs, EKG and UA as well as fluids. EKG shows sinus tachycardia with a rate of 106, normal axis, no ST elevation/depression Labs remarkable for elevated glucose and transaminitis Vital Signs Vital signs: Vital Signs Temperature 97.6 F 08/16/24 23:59 Pulse Rate 120 H 08/16/24 23:59 Respiratory Rate 16 08/16/24 23:59 Blood Pressure 139/94 H 08/16/24 23:59 Pulse Oximetry 98 08/16/24 23:59 Oxygen Delivery Room Air 08/16/24 23:59 Temperature 97.6 F 08/16/24 23:59 Pulse Rate 120 H 08/16/24 23:59 Respiratory Rate 16 08/16/24 23:59 Blood Pressure 135/99 H 08/17/24 02:31 Pulse Oximetry 98 08/17/24 02:31 Oxygen Delivery Room Air 08/16/24 23:59 Medical Decision Making Vital Signs Vital Signs: Vital Signs Temperature 97.6 F 08/16/24 23:59 Pulse Rate 120 H 08/16/24 23:59 Respiratory Rate 16 08/16/24 23:59 Blood Pressure 139/94 H 08/16/24 23:59 Pulse Oximetry 98 08/16/24 23:59 Oxygen Delivery Room Air 08/16/24 23:59 Temperature 97.6 F 08/16/24 23:59 Pulse Rate 120 H 08/16/24 23:59 Respiratory Rate 16 08/16/24 23:59 Blood Pressure 135/99 H 08/17/24 02:31 Pulse Oximetry 98 08/17/24 02:31 Oxygen Delivery Room Air 08/16/24 23:59 Lab Data 08/17/24 00:31 08/17/24 00:31 Labs: Lab Results 08/17/24 08/17/24 08/17/24 Range/Units 00:02 00:31 01:01 WBC 9.1 (4.8-10.8) K/mm3 RBC 4.84 (4.20-5.40) M/mm3 Hgb 13.1 (12.0-15.0) g/dL Hct 40.3 (35.0-49.0) % MCV 83.3 (78.0-102.0) fL MCH 27.1 (27.0-31.0) pg MCHC 32.5 (32-36) g/dL RDW 14.3 (11.6-14.4) % Plt Count 167 (150-420) K/mm3 MPV 14.2 H (9.2-11.8) fl Immature Gran % (Auto) 0.6 H (0.0-0.0) % Neut % (Auto) 70.0 (50.0-70.0) % Lymph % (Auto) 19.2 (18.0-42.0) % [place] % (Auto) 9.5 (2.0-11.0) % Eos % (Auto) 0.3 L (1.0-6.0) % Baso % (Auto) 0.4 (0.0-1.0) % Lymph # (Auto) 1.74 (1.10-4.50) K/mm3 [place] # (Auto) 0.86 (0.10-0.90) K/mm3 Eos # (Auto) 0.03 (0.02-0.50) K/mm3 Baso # (Auto) 0.04 (0.00-0.10) K/mm3 Abs Immat Gran (auto) 0.05 H (0.00-0.00) K/mm3 Absolute Neuts (auto) 6.33 (1.70-7.20) K/mm3 Absolute Nucleated RBC 0.00 (0.00-0.00) K/mm3 Nucleated RBC % 0.0 (0-0.0) % % Immature Plt Fraction 10.8 H (1.0-7.0) % Sodium 135 L (137-145) mmol/L Potassium 3.7 (3.4-5.0) mmol/L Chloride 103 (98-107) mmol/L Carbon Dioxide 23 (22-30) mmol/L Anion Gap 9 (4-12) mmol/L BUN 4 L (7-17) mg/dL Creatinine 0.55 L (0.7-1.0) mg/dL Estim Creat Clear Calc 158 ml/min Estimated GFR > 60 (59 - ) Glucose 473 H (65-110) mg/dL POC Capillary Glucose 416 H (65-105) mg/dl Calculated Osmolality 297 H (285-295) mOsm/kg Calcium 8.8 (8.4-10.2) mg/dL Phosphorus 2.9 (2.5-4.5) mg/dL Magnesium 1.6 (1.6-2.3) mg/dL Total Bilirubin 0.4 (0.2-1.3) mg/dL AST 43 H (14-36) U/L ALT 52 H (6-35) U/L Alkaline Phosphatase 126 (38-126) U/L Total Protein 7.2 (6.3-8.2) g/dL Albumin 3.8 (3.5-5.1) g/dL Urine Color Light yellow (Yellow) Urine Appearance Clear (Clear) Urine pH 6.0 (5.0-8.0) Ur Specific [place] <= 1.005 L (1.010-1.020) Urine Protein Trace H (Negative) Urine Glucose (UA) 3+ H (Negative) Urine Ketones Negative (Negative) Ur Blood (Man) Negative (Negative) Urine Nitrate Negative (Negative) Urine Bilirubin Negative (Negative) Urine Urobilinogen 0.2 (0.2-1.0) mg/dL Leukocyte Esterase Rfl Negative (Negative) FELIPE/UL Ur Squamous Epith Cells Few (Few) /hpf Urine Test Negative 08/17/24 08/17/24 08/17/24 Range/Units 01:46 02:57 03:40 WBC (4.8-10.8) K/mm3 RBC (4.20-5.40) M/mm3 Hgb (12.0-15.0) g/dL Hct (35.0-49.0) % MCV (78.0-102.0) fL MCH (27.0-31.0) pg MCHC (32-36) g/dL RDW (11.6-14.4) % Plt Count (150-420) K/mm3 MPV (9.2-11.8) fl Immature Gran % (Auto) (0.0-0.0) % Neut % (Auto) (50.0-70.0) % Lymph % (Auto) (18.0-42.0) % [place] % (Auto) (2.0-11.0) % Eos % (Auto) (1.0-6.0) % Baso % (Auto) (0.0-1.0) % Lymph # (Auto) (1.10-4.50) K/mm3 [place] # (Auto) (0.10-0.90) K/mm3 Eos # (Auto) (0.02-0.50) K/mm3 Baso # (Auto) (0.00-0.10) K/mm3 Abs Immat Gran (auto) (0.00-0.00) K/mm3 Absolute Neuts (auto) (1.70-7.20) K/mm3 Absolute Nucleated RBC (0.00-0.00) K/mm3 Nucleated RBC % (0-0.0) % % Immature Plt Fraction (1.0-7.0) % Sodium (137-145) mmol/L Potassium (3.4-5.0) mmol/L Chloride (98-107) mmol/L Carbon Dioxide (22-30) mmol/L Anion Gap (4-12) mmol/L BUN (7-17) mg/dL Creatinine (0.7-1.0) mg/dL Estim Creat Clear Calc ml/min Estimated GFR (59 - ) Glucose (65-110) mg/dL POC Capillary Glucose 388 H 258 H 219 H (65-105) mg/dl Calculated Osmolality (285-295) mOsm/kg Calcium (8.4-10.2) mg/dL Phosphorus (2.5-4.5) mg/dL Magnesium (1.6-2.3) mg/dL Total Bilirubin (0.2-1.3) mg/dL AST (14-36) U/L ALT (6-35) U/L Alkaline Phosphatase (38-126) U/L Total Protein (6.3-8.2) g/dL Albumin (3.5-5.1) g/dL Urine Color (Yellow) Urine Appearance (Clear) Urine pH (5.0-8.0) Ur Specific [place] (1.010-1.020) Urine Protein (Negative) Urine Glucose (UA) (Negative) Urine Ketones (Negative) Ur Blood (Man) (Negative) Urine Nitrate (Negative) Urine Bilirubin (Negative) Urine Urobilinogen (0.2-1.0) mg/dL Leukocyte Esterase Rfl (Negative) FELIPE/UL Ur Squamous Epith Cells (Few) /hpf Urine Test Discharge Plan Discharge Clinical Impression: Acute hyperglycemia Patient Disposition: Home Condition: Stable Instructions: Hypoglycemia in a Person with Diabetes (ED) Additional Instructions: Please take your glucose 3 times daily with meals. Please establish care with a primary care provider this week if at all possible. Return to the emergency department for any new, concerning or worsening symptoms. Patient Language: Setswana Prescriptions: New Novolin 70-30 FlexPen U-100 100 unit/mL (70-30) insulin pen See Rx Instructions .ROUTE .COMPLEX Qty: 15 0RF Rx Instructions: 15u in the AM, 10 in the PM. (DME) pen needle, diabetic 29 gauge x 1/2 needle See Rx Instructions .Route Qty: 100 0RF Rx Instructions: As directed No Action albuterol sulfate [Ventolin HFA] 90 mcg/actuation HFA aerosol inhaler 2 puff inhalation QID Qty: 8.5 0RF metformin 500 mg tablet extended release 24 hr 500 mg PO naproxen [Naprosyn] 500 mg tablet 500 mg PO BID PRN (Reason: pain) Qty: 14 0RF cyclobenzaprine 10 mg tablet 10 mg PO TID PRN (Reason: muscle spasm) Qty: 20 0RF Follow-up/Referrals: Adolfo Heath MD [Primary Care Provider] -
--- NOTE | 2024-08-17 00:17 | ECG_ITS ---
Test Date: 2024-08-17 00:40:09 Measurements Intervals Mize Rate: 106 P: 51 CT: 151 QRS: 25 QRSD: 90 T: 30 QT: 331 QTc: 441 Interpretive Statements SINUS TACHYCARDIA ABNORMAL RHYTHM ECG No previous ECG available for comparison Electronically Signed On 08-19-2024 22:35:47 CDT by Juanita Cowan M.D.
[2024-08-17 00:43] LABS: Hematocrit 40.3 % (35.0-49.0); Hemoglobin 13.1 g/dL (12.0-15.0); Immature Platelet Fraction Pct 10.8 % (1.0-7.0); Mean Corpuscular HGB Conc 32.5 g/dL (32-36); Mean Corpuscular Hemoglobin 27.1 pg (27.0-31.0); Mean Corpuscular Volume 83.3 fL (78.0-102.0); Platelet Count Result 167 K/mm3 (150-420); Red Blood Count 4.84 M/mm3 (4.20-5.40); White Blood Count 9.1 K/mm3 (4.8-10.8)
[2024-08-17 00:44] LABS: Immature Granulocyte Percent A 0.6 % (0.0-0.0); Lymphocytes Absolute Auto 1.74 K/mm3 (1.10-4.50); Nucleated Red Blood Cells Absolute Auto 0.00 K/mm3 (0.00-0.00); Nucleated Red Blood Cells Perc 0.0 % (0-0.0)
[2024-08-17 00:51] LABS: Alanine Aminotransferase 52 U/L (6-35); Albumin Level 3.8 g/dL (3.5-5.1); Alkaline Phosphatase 126 U/L (38-126); Anion Gap 9 mmol/L (4-12); Aspartate Amino Transferase 43 U/L (14-36); Bilirubin,Total 0.4 mg/dL (0.2-1.3); Blood Urea Nitrogen 4 mg/dL (7-17); Calcium 8.8 mg/dL (8.4-10.2); Carbon Dioxide 23 mmol/L (22-30); Chloride 103 mmol/L (98-107); Estimated CRCL calculation 158 ml/min; Estimated Glomerular Filt Rate > 60; Glucose 473 mg/dL (65-110); Magnesium 1.6 mg/dL (1.6-2.3); Osmolality Calculated 297 mOsm/kg (285-295); Potassium 3.7 mmol/L (3.4-5.0); Sodium 135 mmol/L (137-145); Total Protein 7.2 g/dL (6.3-8.2)
[2024-08-17 00:52] LABS: Add Urine Microscopic? YES; Appearance Urine Clear (Clear); Glucose Urine UA 3+ (Negative); Leukocyte Esterase Ur Negative LEU/UL (Negative); Nitrate Urine Negative (Negative); Specific Grav Ur <= 1.005 (1.010-1.020)
[2024-08-17] MEDS: SODIUM CHLORIDE 0.9% IV 1,000 ML 999 ML IV CONT ×2 (00:53→01:55)
[2024-08-17 01:11] LABS: Pregnancy On Board Control Positive
[2024-08-17] MEDS: INSULIN HUMAN LISPRO (*BKC) 1,000 UNITS/10 ML VIAL 12 UNITS SUB-Q (01:20)
[2024-08-17] MEDS: INSULIN HUMAN REGULAR (*BKC) 1,000 UNITS/10 ML VIAL 10 UNITS IV PUSH (01:56)
[2024-08-17] MEDS: INSULIN HUMAN REGULAR (*BKC) 1,000 UNITS/10 ML VIAL 5 UNITS IV PUSH (03:07)
--- NOTE | 2024-08-17 03:31 | PC.NURSE ---
ERP aware of pt's vital signs. No new orders.
--- NOTE | 2024-08-21 11:54 | PC.NURSE ---
DURING CALL BACK, PT REPORTS [facility] COULD NOT FILL HER MEDICATION AND SHE WOULD LIKE IT SENT TO [facility] [place]. I CALLED IN THE RX TO [facility] [place] FOR THE INSULIN PENS AND NEEDLES PRESCRIBED.
== END 2024-08-17 03:56 | disposition home or self-care (01) ==
PROVIDERS: Emergency Provider Family Medicine; PCP Family Medicine
DX: R73.9 Hyperglycemia, unspecified (principal)
CPT/HCPCS: 36415; 80053; 81001; 81025; 82948; 83735; 84100; 85025; 85055; 93005; 96361; 96374; 96376; 99284; J1815; J7030

== ENCOUNTER 2024-08-25 01:12 | Emergency (ER) | payer OTHER, SELFPAY ==
--- OUTSIDE RECORDS SUMMARY | 2024-08-25 01:15 | XMS_ITS | Encounter Summary ---
Author Organization [facility] Address [facility] [place] [address] Care Team Providers Care Electrician'S Assistant Name Role Phone Abdirahman Cm MD Primary Care Provider [phone] None, Provider Primary Care Provider Unavaila ble Encounter Details Date Type Department Care Team (Late st Contact Info) Description 07/21/2018 Abstract SFL CONVERSION [address] [place] [address] , Generic ConversionMD Social History Tobacco Use Types Packs/Day Years Used Date Smoking Tobacco: Never Assessed Comments Unknown Sex and Gender Information Value Date Recorded Sex Assigned at Female 04/14/2024 3:39 PM GROUP LEADER SEMICONDUCTOR TESTING Legal Sex Female 5:46 PM GROUP LEADER SEMICONDUCTOR TESTING Gender Identity Not on file Sexual Orientation Not on file documented as of this encounter Plan of Treatment Not on file documented as of this encounter Visit Diagnoses Not on filedocumented in this encounter Care Teams Electrician'S Assistant Relationship Specialty Start Date End Date Abdirahman Cm MD [address] [place] [id number] PCP - General INTERNAL MEDICINE 01/10/22 06/21/23 None, ProviderMD PCP - General UNKNOWN PHYSICIAN SPECIALTY 06/22/23 documented as of this encounter
--- OUTSIDE RECORDS SUMMARY | 2024-08-25 01:15 | XMS_ITS | Clinical Summary ---
Author Organization [facility] Address [address] [place] [address] Phone Care Team Providers Care Inspector Open Die Name Role Phone Unavailable Primary Care Provider [...] patient's age to complete this topic Insurance [facility] PLAN MEDICAID
--- OUTSIDE RECORDS SUMMARY | 2024-08-25 01:15 | XMS_ITS | Clinical Summary ---
Author Organization [facility] Address [facility] [place] [address] Care Team Providers Care Scrap Preparation Supervisor Name Role Phone None, Provider MD [...] Sex Assigned at Female 04/14/2024 3:39 PM BAG SEWER Legal Sex Female 5:46 PM BAG SEWER Gender Identity Not on file Sexual Orientation Not on file Last Filed Vital Signs Vital Sign Reading Time Taken Comments Blood Pressure 111/74 04/14/2024 7:30 PM BAG SEWER Pulse 92 04/14/2024 7:30 PM BAG SEWER Temperature 36.1 C (97 F) 04/14/2024 3:35 PM BAG SEWER Respiratory Rate 04/14/2024 7:30 PM BAG SEWER Oxygen Saturation 100% 04/14/2024 7:15 PM BAG SEWER Inhaled Oxygen Concentration - - Weight 128.4 kg (283 lb) 04/14/2024 3:35 PM BAG SEWER Height 161.3 cm (5' 3.5) 04/14/2024 3:35 PM BAG SEWER Body Mass Index 49.34 04/14/2024 3:35 PM BAG SEWER Plan of Treatment Health Maintenance Due Date [...] age to complete this topic Insurance [address] [place] [address] Care Teams Scrap Preparation Supervisor Relationship Specialty Start Date End Date None, Provider, PCP - General UNKNOWN PHYSICIAN SPECIALTY 06/22/23
[2024-08-25 01:16] VITALS: BP 141/90; PULSE 106; RESP 14; TEMP 36.8; O2SAT 97
--- NOTE | 2024-08-25 01:24 | ED_ITS ---
HPI - Allergic Reaction General Chief complaint: Allergic Reaction Stated complaint: Hives Time Seen by Provider: 08/25/24 01:23 Source: patient Mode of arrival: ambulatory Limitations: no limitations History of Present Illness HPI narrative: This is a 34-year-old female with some rash urticarial with itching no fever chills unsure of what the allergen exposure to is. No fever chills no nausea vomiting abdominal pain no shortness of breath no audible wheezing. complaint: allergic reaction and hives Onset (ago): hour(s) Exposure: unknown Symptoms: rash and itching Related Data Home Medications ?Medication ?Instructions ?Recorded ?Confirmed ?Last Taken ?Type metformin 500 mg tablet,extended 500 mg PO 04/20/24 Unknown History release 24 hr Allergies Allergy/AdvReac Type Severity Reaction Status Date / Time Bleach (Sodium Hypochlorite) Allergy Unknown Difficulty Verified 08/25/24 01:18 Breathing morphine AdvReac Unknown PANIC Verified 08/25/24 01:18 ATTACK Opioids - Morphine Analogues AdvReac PANIC Verified 08/25/24 01:18 ATTACK Review of Systems Review of Systems: All systems reviewed & are unremarkable except as noted in HPI and below PMFSH Past Medical History Medical History Gestational diabetes Body mass index [BMI] 45.0-49.9, adult (11/29/18) Morbid obesity with BMI of 40.0-44.9, adult Asthma Preoperative exam for gynecologic surgery CHASTITY II (cervical intraepithelial neoplasia II) Cervical high risk HPV (human papillomavirus) test positive 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 Surgical History Surgical History H/O LEEP H/O section x2 History of appendectomy Family History Family History (Reviewed 08/25/24 @ :25 by Shahid Ramirez MD) Mother Diabetes mellitus Sibling Hypertension Grandparent Cerebrovascular accident Father Family history of throat cancer Social History Social History Smoking status: Never smoker Alcohol intake: never Substance use: never Lack of Transportation: No Lack of Food: Never True Current Housing: I Have Housing Concerned About Future Housing: No Difficulty Paying Gas/Electric Bills: No Difficulty Paying for Meds: No Currently Unemployed: No Education: High School Diploma/GED Difficulty w/ Childcare or Family Care: No Spiritual care concerns: No Exam Const: General: healthy appearing and no acute distress Nutritional Appearance: well nourished and obese Orientation/consciousness: patient oriented x3 Limitations: no limitations HENMT: Head: normal to inspection Eyes: Conjunctivae: conjunctivae normal Pupils: Equal, round and reactive pupils present EOM: EOMs intact bilaterally Neck: Neck: normal visual inspection, no lymphadenopathy and no meningeal signs Chest: Chest palpation & inspection: normal inspection of the chest Resp: Effort & Inspection: normal respiratory effort Auscultation: clear to auscultation bilaterally Cardio: Rate: regular rate Rhythm: regular rhythm GI: GI Palp: Yes Soft to palpation Auscultation: normal bowel sounds : General: Yes bladder normal to palpation Skin: Other: Rash with itching urticaria Extrem: General: normal to inspection, no clubbing, cyanosis or edema and no pedal edema Course Course Emergency Course: patient received a dose of Depo-Medrol 80mg IM along with Benadryl 25mg IM. Patient with no shortness of breath audible wheezing after reassessment patient's symptoms have improved. Vital Signs Vital signs: Vital Signs Temperature 36.8 C 08/25/24 01:16 Pulse Rate 106 H 08/25/24 01:16 Respiratory Rate 14 08/25/24 01:16 Blood Pressure 141/90 H 08/25/24 01:16 Pulse Oximetry 97 08/25/24 01:16 Oxygen Delivery Room Air 08/25/24 01:16 Temperature 36.8 C 08/25/24 01:16 Pulse Rate 106 H 08/25/24 01:16 Respiratory Rate 14 08/25/24 01:16 Blood Pressure 141/90 H 08/25/24 01:16 Pulse Oximetry 97 08/25/24 01:16 Oxygen Delivery Room Air 08/25/24 01:16 Critical Care Time Critical Care Time Critical Care Time: No Discharge Plan Discharge Clinical Impression: Allergic reaction Qualifiers: Encounter type: initial encounter Qualified Code(s): T78.40XA - Allergy, unspecified, initial encounter Patient Disposition: Home Condition: Stable Instructions: Antibiotic Form, Urticaria (ED), Acute Rash (ED) Additional Instructions: advised patient to take medication as prescribed and follow-up with primary care physician within 1 week further evaluation and treatment. should take Claritin or Zyrtec or Benadryl daily along with prescribed medication. Patient Language: Arabic Prescriptions: New methylprednisolone [Medrol (Harsha)] 4 mg tablets,dose pack See Rx Instructions .ROUTE .COMPLEX Qty: 21 0RF Rx Instructions: for 6 days famotidine [Pepcid] 20 mg tablet 20 mg PO BID Qty: 14 0RF No Action albuterol sulfate [Ventolin HFA] 90 mcg/actuation HFA aerosol inhaler 2 puff inhalation QID Qty: 8.5 0RF metformin 500 mg tablet extended release 24 hr 500 mg PO naproxen [Naprosyn] 500 mg tablet 500 mg PO BID PRN (Reason: pain) Qty: 14 0RF cyclobenzaprine 10 mg tablet 10 mg PO TID PRN (Reason: muscle spasm) Qty: 20 0RF Novolin 70-30 FlexPen U-100 100 unit/mL (70-30) insulin pen See Rx Instructions .ROUTE .COMPLEX Qty: 15 0RF Rx Instructions: 15u in the AM, 10 in the PM. (DME) pen needle, diabetic 29 gauge x 1/2 needle See Rx Instructions .Route Qty: 100 0RF Rx Instructions: As directed Follow-up/Referrals: Abdriahman Cm MD [Primary Care Provider] - Time of Disposition: 01:27
[2024-08-25] MEDS: methylPREDNISolone ACETATE 40 MG/ML VIAL 80 MG IM (01:33)
== END 2024-08-25 01:55 | disposition home or self-care (01) ==
LOC: CHSED 01:28
PROVIDERS: Emergency Provider Emergency Medicine; PCP Internal Medicine
DX: T78.40XA Allergy, unspecified, initial encounter (principal)
CPT/HCPCS: 96372; 99284; J1010; J1200